=== PATIENT | male | born 1950 | race Caucasian/White ===

== ENCOUNTER → 2016-08-02 | Outpatient (CLI) | payer OTHER, MEDICARE ==
[~2016-08-02] MED LIST: ADULT LOW DOSE81 MG PO; ALDACTONE25 MG PO; ALLOPURINOL 30300 M2 PO; AMLODIPINE BESY10 MG PO; APAP500 PO; ASPIR 8181 MG PO; BENADRYL25 MG PO; BENICAR PO; BENICAR20 MG PO; BENICAR40 MG PO; CAL MAG ZINC +1 EAC1 PO; CALCIUM ZINC PO; CARVEDILOL12.5 MG PO; CARVEDILOL25 MG PO; CEPHALEXIN 500500 M3 PO; CLONIDINE PO; CLONIDINE0.1 PO; COLACE100 MG PO; COREG PO; CRESTOR10 MG PO; CRESTOR20 MG PO; DEEP SEA NASAL44 M1 NASAL; DEMADEX 2020 MG/1 TA PO; DEMADEX20 MG PO; DOCUSATE SODIU100 MG PO; DOXYCYCLINE 10100 M1 PO; EUCERIN CREME57 GM; FENOFIBRATE54 MG PO; FLOMAX PO; FLOMAX0.4 MG PO; GLUCOPHAGE500 MG PO; GLYCOLAX POWDER17 G1 PO; HUMALOG100 UNIT/1 SUBQ; HYDRALAZINE 2525 M1 PO; HYDRALAZINE 5050 MG PO; IMDUR 30 MG TAB30 M1 PO; K-DUR 20 MEQ T20 MEQ PO; LANTUS SUBQ; LASIX 40 MG TAB40 M1 PO; LASIX 80 MG TAB80 MG PO; LEVAQUIN 250 M250 MG PO; LEVAQUIN 500 M500 M1 PO; LEVAQUIN 500 M500 M6 PO; LEVEMIR SUBQ; LEVOFLOXACIN750 MG PO; LIPITOR40 MG PO; LISINOPRIL10 MG PO; LISINOPRIL20 MG PO; LISINOPRIL40 MG PO; METFORMIN 500500 MG PO; METOLAZONE 5 MG5 M1 PO; MICRO-K 10 MEQ10 MEQ OR; MINIPRIN81 MG PO; MIRALAX255 GM PO; MUCINEX TA600 MG/TA2 PO; MULTI-VITAMIN1 EAC1 PO; MULTIVITAMINS PO; NEURONTIN 300300 M1 PO; NORVASC 5 MG TAB5 MG PO; NOVOLOG100 UNIT/1 SUBQ; PRILOSEC 20 MG20 MG PO; PRINIVIL20 MG PO; PROTONIX40 M2 PO; ROCEPHIN 11 GM/100 M IV; SULAR PO; SYSTANE 0.3-0.1 EACH OP; SYSTANE BALANCE10 ML OPHTHALMIC; TAMSULOSIN HCL0.4 MG PO; UNICOMPLEX M TA1 TA1 PO; VITCB500GO PO; ZESTRIL5 MG PO; ZINC GLUCONATE100 MG PO
== END ==
LOC: HYPER 07:01
DX: E11.622 Type 2 diabetes mellitus with other skin ulcer (principal); L97.811 Non-pressure chronic ulcer of other part of right lower leg limited to breakdown of skin; L97.821 Non-pressure chronic ulcer of other part of left lower leg limited to breakdown of skin; R60.0 Localized edema; I50.40 Unspecified combined systolic (congestive) and diastolic (congestive) heart failure; L03.115 Cellulitis of right lower limb; L03.116 Cellulitis of left lower limb; E11.628 Type 2 diabetes mellitus with other skin complications; G47.30 Sleep apnea, unspecified

== ENCOUNTER 2016-09-21 04:05 | Inpatient (IN) | payer OTHER, MEDICARE ==
[~2016-09-21] VITALS: Ht 182.9 cm; Wt 145.5 kg
--- NOTE | ~2016-09-21 | HC ---
[facility] [place] [address] CONSULTATION Name: ABHIJIT CHOUDHURY Room #: 213-P ADM IN M.R.#: [id number] Admission: 09/21/16 Attend Phys: Theodore Ochoa MD Discharge: Date of : 48 Report #: [id number] THIS REPORT FOR: //name// CC: Ruiz Ochoa REASON FOR CONSULTATION: Shortness of breath. HISTORY OF PRESENT ILLNESS: The patient is a 66-year-old gentleman with remote bypass surgery and diastolic heart failure. He has a history of advanced kidney disease related to diabetic nephropathy. His weight had been stable at around 300 pounds, although over the past couple of weeks has noticed gradual weight gain and is now up to 312 pounds. With this, he has noticed increasing lower extremity edema, orthopnea and exertional breathlessness. He does admit that he has not been as good as he knows that he should be with regards to dietary salt intake. No chest pain, pressure or ischemic type symptoms. His left ventricular systolic function by assessment in 2014 was normal. No history of palpitations, near syncope or syncope. His volume status has been closely managed as an outpatient by Dr. Loza. He was seen in the Emergency Department where a B-type natriuretic peptide was elevated at 20,000. Troponin was elevated at 0.65. CURRENT MEDICATIONS: Include torsemide 40 mg daily, lisinopril 40 mg daily, carvedilol 12.5 mg twice daily, allopurinol 300 mg daily, insulin, atorvastatin 40 mg daily, Flomax 0.4 mg daily. ALLERGIES: He is allergic to SULFA AND TAPE. PAST MEDICAL HISTORY: Medical records have been reviewed and include history of stage 3-4 kidney disease, obstructive sleep apnea, diastolic heart failure, diabetic ulcers, bypass surgery in 2002, diabetic nephropathy, diabetic retinopathy. Bypass anatomy is known for a vein graft to the right coronary, vein graft to the second marginal branch with retrograde filling of the first marginal branch and occluded vein graft to the LAD and diagonal with a patent [place] LAD. SOCIAL HISTORY: Nonsmoker. FAMILY HISTORY: Unremarkable for premature coronary artery disease. 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 PHYSICAL EXAMINATION: GENERAL: Reveals a morbidly obese gentleman who is alert, who is mildly dyspneic. VITAL SIGNS: Blood pressure is 208/85, heart rate of 80 and regular. He is afebrile, 6 feet tall, 312 pounds. [facility] [address] [place] [address] CONSULTATION Name: ABHIJIT CHOUDHURY Room #: 213-P [facility] IN .R.#: [id number] Admission: 09/21/16 Attend Phys: Theodore Ochoa MD Discharge: Date of : 46 Report #: [id number] HEENT: There are neither xanthelasma, subcutaneous xanthomata, oral mucosal or digital cyanosis or kyphoscoliosis present. CHEST: Diminished breath sounds at both bases. CARDIOVASCULAR: Regular rate and rhythm with normal S1, S2. Jugular venous pressure is elevated. ABDOMEN: Soft, obese and nontender. EXTREMITIES: Wrapped. There is 1+ pedal edema. LABORATORY DATA: Sodium 139, potassium 3.5, creatinine 2.7. B-type natriuretic peptide of 20,000. White count 7.6, hemoglobin 9.9, hematocrit 30, platelet count 174. Chest x-ray demonstrates cardiomegaly and congestive heart failure. EKG has considerable baseline artifact. This looks like probably sinus rhythm with right bundle branch block. IMPRESSION: 1. Acute on chronic diastolic heart failure, advanced chronic kidney disease. 2. Hypertension. 3. Diabetes. 4. Coronary artery disease. 5. Obstructive sleep apnea. 6. Morbid obesity. RECOMMENDATIONS: 1. Nephrology consultation. 2. Continued use of carvedilol and OZZIE inhibitor. 3. Intravenous diuretic therapy. 4. Salt restriction was reinforced. 5. Echocardiogram with Doppler. Further thoughts will be forthcoming based on this evaluation. Thank you for asking me to participate in the care of this nice gentleman. <ELECTRONICALLY SIGNED> By: Ruiz Dominguez MD, FACC 09/23/16 1303 0727 0808 Ruiz Dominguez MD, FACC /nt
--- NOTE | ~2016-09-21 | EKG ---
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: JACOB : 1950 Requested By: Francine Swann Order Number: [id number] MD: Ruiz Dominguez Measurements Intervals [place] Rate: 79 P: MA: QRS: 78 QRSD: 181 T: 9 QT: 427 QTc: 490 Interpretive Statements Marked baseline artifact Probable sinus rhythm Right bundle branch block No previous ECG available for comparison Electronically Signed On 09-21-2016 8:37:18 CDT by Ruiz Dominguez [email or web address] <ELECTRONICALLY SIGNED> By: Ruiz Dominguez MD, [facility] 09/21/16 0837 0413 0413 Ruiz Dominguez MD, FACC /EPI
--- NOTE | ~2016-09-21 | H ---
[facility] [place] [address] HISTORY AND PHYSICAL Name: ABHIJIT CHOUDHURY Room #: 213-P ADM IN M.R.#: [id number] Admission: 09/21/16 Attend Phys: Theodore Ochoa MD Discharge: Date of : 46 Report #: [id number] THIS REPORT FOR: //name// CC: Ruiz Ochoa DATE OF SERVICE: 09/21/2016 CHIEF COMPLAINT: Swelling and weakness. HISTORY OF PRESENT ILLNESS: The patient is a 66-year-old male known to me who has chronic lymphedema and right-sided heart failure, who presented with increasing shortness of breath, swelling and weakness. He has been going to the wound clinic for lymphedema and wounds on his legs. He has been getting progressively worse in the last couple of weeks and could not get himself out of bed yesterday. PAST MEDICAL HISTORY: Includes diabetes mellitus, insulin requiring; retinopathy; nephropathy; cardiomyopathy; coronary artery disease with prior bypass grafting; diabetic foot ulcers; prior osteomyelitis; prior amputations of third to fifth toes on the right and frequent falls with dizziness, lightheadedness; Angel esophagitis; chronic kidney disease, stage 3-4; obstructive sleep apnea; diastolic heart failure; neuropathy. MEDICATIONS: Include torsemide 20 mg 2 a day, Systane drops daily, Levaquin 500 mg a day for the last week, lisinopril 20 mg a day, Coreg 25 mg b.i.d., allopurinol 300 mg a day, Benadryl 25 mg a day, insulin sliding scale. ALLERGIES: SULFA. SOCIAL HISTORY: Nonsmoker, nondrinker. He does live independently. REVIEW OF SYSTEMS: CONSTITUTIONAL: No fever or chills. HEENT: No headaches or visual changes. CHEST: Increased shortness of breath but no significant sputum production. No chest pain or palpitations. GASTROINTESTINAL: No vomiting or nausea, no diarrhea. GENITOURINARY: No burning or frequency. EXTREMITIES: No swelling. SKIN: No wounds as above. PHYSICAL EXAMINATION: VITAL SIGNS: Blood pressure 170/63, pulse is 84, respiratory rate is 18. GENERAL: He is afebrile. He is a morbidly obese male. He is very pleasant, in no acute distress. He has significant edema of his extremities. [address] [address] HISTORY AND PHYSICAL Name: ABHIJIT CHOUDHURY Room #: [address] [place] [address] IN M.R.#: [id number] Admission: 09/21/16 Attend Phys: Theodore Ochoa MD Discharge: Date of : 46 Report #: [id number] HEENT: His mucous membranes are moist. NECK: Supple, without adenopathy, thyromegaly or bruits. CHEST: Clear to auscultation anteriorly with basilar crackles bilaterally. CARDIOVASCULAR: Regular rhythm without murmur. ABDOMEN: Obese but soft, no masses. Bowel sounds are active. EXTREMITIES: 4+ edema. The legs are wrapped. Pulses are intact. LABORATORY DATA: Sodium 139, potassium 3.5, chloride 102, bicarbonate 24, BUN 81, creatinine 2.7, glucose 235. Troponin 0.65. BNP 20,286. WBC 7.6, hemoglobin 9.9, hematocrit 30.7, platelet count 174, 83 segs, 12 lymphs. Chest x-ray shows pulmonary edema, cardiomegaly. ASSESSMENT: 1. Acute exacerbation of systolic congestive heart failure and diastolic congestive heart failure. 2. Pulmonary edema. 3. Elevated troponin, most likely on the bases of the strain. 4. Chronic lymphedema. 5. Diabetes mellitus. 6. Prior osteomyelitis with wounds on his legs. 7. Benign prostatic hypertrophy. PLAN: We will admit, consult Cardiology, get IV diuresis. We will ask Urology to see him regarding the possible placement of catheter if needed. For his diabetes, we will resume his home meds including insulin sliding scale. By: 1730 1844 Theoodre Ochoa MD /nt
--- NOTE | ~2016-09-21 | 2DMMODE ---
[facility] [employer] [place] [address] 2 D/M-MODE ECHOCARDIOGRAM Name: MACEYABHIJIT BAUMANN Room #: 213-P [facility] IN M.R.#: [id number] Admission: 09/21/16 Attend Phys: Theodore Ochoa, Discharge: Date of : 46 Date of Service: 09/21/16 1253 Report #: [id number] THIS REPORT FOR: //name// APPROVED REPORT EXAM: Comprehensive 2D, Doppler, and color-flow Echocardiogram Patient Location: Bedside/Room 213 Blood Pressure: 208/85 mmHg HR: 73 bpm Other Information Study Quality: Poor Technically limited study due to body habitus. Indications CHF, leg swelling, short of breath. Hx: CABG, CHF, DM, morbid obesity. Echo Enhancing Agent Indication: Endocardial border delineation Agent/Amount Used: Definity cc 2D Dimensions RVDd: 44.17 mm LVEF(%): 52.58 (>50%) IVSd: 10.40 (7-11mm) LVOT Diam: 21.13 (18-24mm) LVDd: 56.89 mm PWd: 11.08 (7-11mm) LVDs: 41.31 (25-40mm) Aortic Root: 33.00 mm Holden's LVEF: 52.58 % Volumes Left Atrial Volume (Systole) Single Plane 4CH: 111.22 mL Single Plane 2CH: 93.52 mL LA ESV Index: 43.00 mL/m2 Aortic Valve AoV Peak Petr.: 1.50 m/s AO Peak Gr.: 9.04 mmHg LV Max P.72 mmHg LV Max: 0.82 m/s Mitral Valve [facility] [address] [place] [address] 2 D/M-MODE ECHOCARDIOGRAM Name: MACEYABHIJIT BAUMANN Room #: 213-P ADM IN M.R.#: [id number] Admission: 09/21/16 Attend Phys: Theodore Ochoa, Discharge: Date of : 46 Date of Service: 09/21/16 1253 Report #: [id number] MV PHT: 49.46 ms MV E Max Petr.: 1.23 m/s E/A Ratio: 2.1 MV A Petr.: 0.59 m/s MV Decel. Time: 170.55 ms TDI E/Lateral E': 33.00 E/Medial E': 26.00 Pulmonary Valve PV Peak Petr.: 0.90 m/s PV Peak Gr.: 3.22 mmHg Tricuspid Valve TR Peak Petr.: 4.09 m/s RAP Estimate: 15.00 mmHg TR Peak Gr.: 66.79 mmHg RVSP: 82.00 mmHg Left Ventricle Left ventricle is borderline dilated. Flattened septum consistent with right ventricular pressure overload. Hypokinesis involving the inferoapex. There is normal left ventricular wall thickness. Left ventricular systolic function is borderline. LVEF is 50-55%. Grade III - reversible restrictive diastolic dysfunction. Right Ventricle Right ventricle is not well visualized but appears dilated and hypokinetic. Atria Left atrium is dilated Right atrium is dilated Aortic Valve Aortic valve is calcified. No aortic regurgitation is present. There is no aortic valvular stenosis. Mitral Valve The mitral valve is normal in structure. Mild mitral regurgitation. There is no mitral valve stenosis. Tricuspid Valve The tricuspid valve is normal in structure. There is moderate tricuspid regurgitation. The right atrial pressure is estimated at 15 mmHg. There is severe pulmonary hypertension with an estimated PAP of 82mmHg. Pulmonic Valve The pulmonary valve is normal in structure. Trace pulmonic regurgitation. [facility] [address] [address] 2 D/M-MODE ECHOCARDIOGRAM Name: ABHIJIT CHOUDHURY PASTOR Room #: 213-P [facility] IN .R.#: [id number] Admission: 09/21/16 Attend Phys: Theodore Ochoa, Discharge: Date of : 46 Date of Service: 09/21/16 1253 Report #: [id number] Great Vessels The aortic root is normal in size. Ascending aorta is not well visualized. IVC is dilated and collapses <50% with inspiration. Pericardium There is no pericardial effusion. Right pleural effusion. <Conclusion> Limited study There is normal left ventricular wall thickness. Grade II diastolic dysfunction LVEF is 50-55%. Flattened septum consistent with right ventricular pressure overload. Hypokinesis involving the inferoapex. Aortic valve is calcified. No aortic regurgitation or stenosis. The mitral valve is normal in structure. Mild mitral regurgitation. There is moderate tricuspid regurgitation. The right atrial pressure is estimated at 15 mmHg. There is severe pulmonary hypertension with an estimated PAP of 80mmHg. There is no pericardial effusion. <ELECTRONICALLY SIGNED> By: Ruiz Dominguez MD, FACC 09/21/16 1253 1253 1253 Ruiz Dominguez MD, FACC /INF
--- NOTE | ~2016-09-21 | HC ---
[facility] [place] [address] CONSULTATION Name: ABHIJIT CHOUDHURY Room #: 213-P [facility] IN M.R.#: [id number] Admission: 09/21/16 Attend Phys: Theodore Ochoa MD Discharge: Date of : 48 Report #: [id number] THIS REPORT FOR: //name// CC: Ruiz Ochoa DATE OF SERVICE: 09/22/2016 PERSONAL PHYSICIAN: Theodore Ochoa MD CHIEF COMPLAINT: Lower extremity ulcerations and edema. HISTORY OF PRESENT ILLNESS: This is a 66-year-old white male who I saw in the wound clinic recently for lower extremity edema and ulcerations. However, at that time, the patient states he did not feel that he wanted to be hospitalized even though he said he had had approximately a 10-pound weight increase over the past several days. The patient did complain of shortness of breath with exertion, but denied any chest pain. The patient had no complaints of his wounds except for drainage. At this time, the patient now is hospitalized for heart failure and fluid overload. We have been asked to assist in wound care at this time. The patient states he has no new wounds since I saw him last week. PAST MEDICAL HISTORY: Significant for chronic kidney disease, obstructive sleep apnea, diastolic heart failure, chronic venous stasis ulcers, diabetic nephropathy, diabetic retinopathy and diabetic neuropathy, previous coronary artery bypass grafting. CURRENT MEDICATIONS: Include lisinopril, torsemide, insulin, atorvastatin, Flomax, allopurinol, and carvedilol. DRUG ALLERGIES: SULFA AND TAPE. SOCIAL HISTORY: The patient does not smoke or drink alcohol. Resides at home with his independently. FAMILY HISTORY: Not pertinent to current medical condition. REVIEW OF SYSTEMS: CONSTITUTIONAL: The patient denies fevers or chills. NEUROLOGIC: The patient has overall generalized weakness, but no isolated weakness in arms or legs. EYES: No complaints. ENT: No complaints. CARDIAC: The patient has a chronic lower extremity edema with increasing edema over the past several days. Denies chest pain or palpitations. RESPIRATORY: The patient does have shortness of breath with associated dyspnea [address] [address] CONSULTATION Name: MACEYABHIJIT PASTOR Room #: 213-P [facility] IN M.R.#: [id number] Admission: 09/21/16 Attend Phys: Theodore Ochoa MD Discharge: Date of : 46 Report #: [id number] on exertion and orthopnea. The patient denies cough or wheezes. GASTROINTESTINAL: The patient denies any nausea, vomiting or abdominal pain. GENITOURINARY: The patient denies urgency or frequency. MUSCULOSKELETAL: No complaints. SKIN: There are no rashes; however, the patient does have open ulcerations on bilateral pretibial regions as well as a necrotic left second toe. PHYSICAL EXAMINATION: VITAL SIGNS: Stable. T-max is 36.6. GENERAL: This is a morbidly obese white male who is in no acute distress. HEENT: Normocephalic, atraumatic. Mucous membranes are moist. Pupils are round. Sclerae white. NECK: Supple, without masses or lymphadenopathy. LUNGS: Slightly diminished breath sounds heard throughout with crackles in the base. HEART: Regular with a 2/6 systolic ejection murmur. ABDOMEN: Obese, soft, nontender. EXTREMITIES: The patient has 3+ edema in the lower extremities with weeping ulcerations on the pretibial regions, which are actually fairly clean and granulating, slightly improved from my last visualization last week. Periulcers are without significant erythema, warmth or tenderness. Distal pulses are faint, but intact on the dorsalis pedis, but faint or nonexistent on the posterior tibial region. On the left second toe, there is a necrotic wound which has small amount of foul-smelling drainage granulation tissue. NEUROLOGIC: Cranial nerves 2-12 are grossly intact. Motor and sensory are grossly intact. WOUND CARE COURSE: I spoke to the patient about his toe, which is my biggest concern. This was something that he sustained a traumatic injury to approximately 1 month ago where he nearly tore his toe off while he was in his wheelchair coming to the wound clinic. He had significant amount of bleeding in the toe itself. He did not have any x-rays performed; however, the toe itself was reduced what appeared to be a fracture or dislocation which we reduced in the wound clinic and paula-taped to the next toe and had silver alginate placed over that wound at that time. I spoke to the patient at his last clinic visit that this toe might need amputation. He prefers to hold off on it at this time unless it is absolutely necessary. I saw the rest the ulcerations seem to be stable or improving. LABORATORY DATA: White count 6.7, hemoglobin 9.3. BUN 84, creatinine 2.8, albumin on admission was 2.1. ASSESSMENT AND PLAN: 1. Chronic non-pressure ulcerations, bilateral pretibial area with limited to breakdown of fatty tissue. 2. Chronic lower extremity edema, worsening over the past several days [facility] [address] [place] [address] CONSULTATION Name: ABHIJIT CHOUDHURY Room #: 213-P ADM IN M.R.#: [id number] Admission: 09/21/16 Attend Phys: Theodore Ochoa MD Discharge: Date of : 46 Report #: [id number] secondary to #3. 3. Fluid overload consistent with congestive heart failure. 4. Severe protein-calorie malnutrition with an albumin of 2.1. 5. Necrotic wound, left second toe secondary to traumatic injury. 6. Diabetes mellitus type 2. 7. Morbid obesity. PLAN: At this time, we will use silver alginate on the left second toe to absorb any drainage, have this changed every day. We will do Silver foam to the pretibial ulcerations, have this changed once every other day, add Kerlix and Dylon wrap applied to the toes, to the knee for control of the edema. Once again, we will watch his second toe and make sure he does not need surgical intervention. Also make sure we maximize the patient's oral protein supplementation to assist in the healing process. I appreciate the ability to consult. We will continue to follow the patient. By: 1725 07 Romeo Aguilar MD /tracy
--- NOTE | ~2016-09-21 | HC ---
[facility] [place] [address] CONSULTATION Name: ABHIJIT CHOUDHURY Room #: 213-P ADM IN M.R.#: [id number] Admission: 09/21/16 Attend Phys: Theodore Ochoa MD Discharge: Date of : 46 Report #: [id number] THIS REPORT FOR: //name// CC: Ruiz Ochoa DATE OF SERVICE: 09/21/2016 REASON FOR CONSULTATION: Volume overload in this patient with diabetes mellitus, hypertension and chronic kidney disease. HISTORY OF PRESENT ILLNESS: The patient is well known to us from his previous hospitalizations at [facility]. He was last hospitalized in 03/2016 with renal insufficiency, cellulitis, respiratory insufficiency and congestive heart failure. His creatinine at that time was 2.5. The patient reports that he had maintained relatively good volume status through the first of the year. He was seen by Dr. Loza in our office in early July and was felt to be doing well at that time. The patient reports a 30-40-pound weight gain over the past several weeks. He has tried additional doses of torsemide to no avail. He presented to the Emergency Room early on the morning of admission with complaints of increasing swelling and shortness of breath. He was admitted for further evaluation and treatment. PAST MEDICAL HISTORY: Remarkable as described for diabetes mellitus, chronic kidney disease, ischemic cardiomyopathy with a documented ejection fraction of 45%. He is status post previous coronary artery bypass surgery in 2002. He has had ongoing issues with diabetic foot ulcers. He has undergone partial amputation of the right foot. He has known obstructive sleep apnea and uses CPAP regularly. He has a history of remote MRSA infection. He has known diabetic neuropathy. MEDICATIONS ON ADMISSION: Include torsemide 60 mg daily, vitamin C 500 mg daily, Systane eyedrops, Zestril 40 mg daily, Levaquin 500 mg daily, carvedilol 12.5 mg b.i.d., allopurinol 300 mg daily, Benadryl p.r.n., NovoLog and Humalog insulin. ALLERGIES: Reported to SULFA and TAPE. PERSONAL AND SOCIAL HISTORY: The patient lives with his . He does not smoke, use alcohol or have any history of substance abuse. REVIEW OF SYSTEMS: Remarkable as described in the history of present illness for increasing edema. He has had dyspnea with minimal exertion. He is not able to ambulate at this time. He denies chest pain, palpitations, nausea, vomiting, diarrhea or constipation. [facility] [address] [place] [address] CONSULTATION Name: ABHIJIT CHOUDHURY Room #: 213-P [facility] IN ..#: [id number] Admission: 09/21/16 Attend Phys: Theodore Ochoa MD Discharge: Date of : 46 Report #: [id number] PHYSICAL EXAMINATION: GENERAL: Reveals a morbidly obese male in no acute distress. VITAL SIGNS: Blood pressure 184/75, temperature 97.6, pulse 79, respirations 20. SKIN: Warm and dry. The legs are wrapped with an Dylon wrap below the knees bilaterally. There is significant thigh edema bilaterally. There is no evidence of cellulitis. HEENT: The head is normocephalic and atraumatic. The sclerae are white. The pharynx is benign. NECK: Supple. LUNGS: Montez reveal diminished breath sounds bilaterally without gross wheezes or crackles heard. CARDIOVASCULAR: Heart sounds are distant without gross murmur or rub. ABDOMEN: Markedly obese without guarding, tenderness, rebound, mass or organomegaly. NEUROLOGIC: Reveals evidence of peripheral neuropathy but is otherwise nonfocal. LABORATORY STUDIES: Available at this time include sodium 139, potassium 3.5, chloride 102, CO2 24, BUN 81, creatinine 2.7, glucose 235, white blood cell count 7600, hemoglobin 9.9, hematocrit 30.7, platelet count 174,000. Urinalysis is pending. ASSESSMENT: 1. Chronic kidney disease in the setting of longstanding diabetes mellitus and hypertension with creatinine a little changed from values from 03/2016. He needs ongoing parenteral diuresis at this time. 2. Shortness of breath and congestive heart failure with volume overload. 3. Hypertension. 4. Obstructive sleep apnea. 5. Morbid obesity. 6. Anemia of chronic kidney disease. PLAN: We will treat the patient with parenteral diuretic therapy and appropriate potassium supplementation in an effort to remove the 30 plus pounds of excess fluid he is now retaining at this time. Dietary management will be important going forward as has been discussed with the patient in the past. Please see orders. <ELECTRONICALLY SIGNED> By: Glen Bell MD 09/22/16 0832 1257 1404 Glen Bell MD /nt
--- NOTE | ~2016-09-21 | HC ---
[facility] [place] [address] CONSULTATION Name: ABHIJIT CHOUDHURY Room #: 213-P [facility] IN M.R.#: [id number] Admission: 09/21/16 Attend Phys: Theodore Ochoa MD Discharge: Date of : 48 Report #: [id number] THIS REPORT FOR: //name// CC: Ruiz Ochoa DATE OF SERVICE: 09/22/2016 REASON FOR CONSULTATION: Chronic kidney disease in the setting of diffuse atherosclerosis in anticipation of cardiac catheterization. HISTORY OF PRESENT ILLNESS: The patient has longstanding and severe atherosclerosis. He is status post remote CABG in 2003. He has undergone subsequent PCI with stent placement in 2013. He has known abdominal aortic aneurysm status post stent graft with bilateral renal artery stents. He has undergone previous right carotid endarterectomy. He has a history of nephrolithiasis. He has known peripheral arterial disease. The patient is admitted at this time with complaints of chest pain and has been treated with nitroglycerin and aspirin. His troponin was elevated to 1.11 on admission. The patient denies recent gross hematuria or difficulties with nephrolithiasis. MEDICATIONS: On admission to the hospital include losartan 100 mg daily, carvedilol 12.5 mg b.i.d., nitroglycerin p.r.n., amlodipine 10 mg daily, Lipitor 40 mg daily, Plavix 75 mg daily, clonidine 0.1 mg t.i.d., Flonase 2 sprays daily, aspirin 81 mg daily, vitamin D 1000 units daily. ALLERGIES: He has no known drug allergies. PERSONAL AND SOCIAL HISTORY: The patient is a reformed smoker having quit many years ago. He did smoke for 35 years, however. He does not use alcohol or have any history of substance abuse. He is and lives with his . He is retired. FAMILY HISTORY: Negative for renal disease. REVIEW OF SYSTEMS: Remarkable for the absence of fevers, chills, sweats or other constitutional complaints. He denies loss of consciousness or vertigo. He has had minimal shortness of breath and dyspnea with exertion. He had chest pain as described. He denies hemoptysis. He denies nausea, vomiting, diarrhea or constipation. PHYSICAL EXAMINATION: GENERAL: Reveals a well-developed, well-nourished, elderly male appearing his [facility] [address] [place] [address] CONSULTATION Name: ABHIJIT CHOUDHURY Room #: 213-P [facility] IN M.R.#: [id number] Admission: 09/21/16 Attend Phys: Theodore Ochoa MD Discharge: Date of : 48 Report #: [id number] stated age, in no acute distress. VITAL SIGNS: Blood pressure 130/64, temperature 98.1, pulse 73. SKIN: Warm and dry without rash or erythema. There is no gross clubbing, cyanosis, edema or adenopathy. HEENT: The head is normocephalic and atraumatic. The sclerae are white. The pharynx is benign. NECK: Supple. CHEST: Lungs huerta are grossly clear to percussion and auscultation. CARDIOVASCULAR: Reveals a regular rate and rhythm without rub. There is good distal perfusion. ABDOMEN: Soft and nontender without palpable mass or organomegaly. There is no mass appreciated. NEUROLOGIC: Reveals the patient to be alert and cooperative with a nonfocal exam. LABORATORY STUDIES: Available at the time of admission include sodium 140, potassium 3.8, chloride 107, CO2 26, BUN 22, creatinine 1.4, glucose 100, albumin 3.4. White blood cell count 7600, hemoglobin 13.1, hematocrit 39.3, platelet count 129,000. Urinalysis reveals clear yellow urine, specific gravity 1.015, pH 5.5, negative for glucose, ketones, bilirubin, 1+ blood. ASSESSMENT: 1. Chronic kidney disease in the setting of longstanding hypertension and severe atherosclerosis. I suspect the patient has an element of hypertensive nephrosclerosis/ischemic nephropathy. Urinalysis does not suggest a glomerulonephritis or other parenchymal renal process. He has high risk for radiocontrast and should be prepped with IV hydration prior to cardiac catheterization. 2. Acute chest pain with acute coronary insufficiency for catheterization and evaluation. The patient has a known history of coronary artery disease status post previous coronary artery bypass surgery as well as subsequent percutaneous intervention. 3. Diffuse atherosclerosis with history of renal artery stents, abdominal aortic stent graft and distal peripheral arterial disease. 4. Longstanding severe hypertension. PLAN: We will administer hydration protocol for the patient prior to radiocontrast administration. We will follow serial laboratory studies, I and O and daily weights. We will endeavor to avoid other nephrotoxins as possible. Please see orders. <ELECTRONICALLY SIGNED> By: Glen Bell MD 09/25/16 0826 1249 1552 Glen Bell MD /nt
[~2016-09-21 04:05] MED LIST changes: -CARVEDILOL12.5 MG PO; -FLOMAX0.4 MG PO; -HUMALOG100 UNIT/1 SUBQ; -LEVAQUIN 500 M500 M6 PO; -SYSTANE 0.3-0.1 EACH OP; -UNICOMPLEX M TA1 TA1 PO
[2016-09-21 04:06] VITALS: BP 172/63
[2016-09-21] MEDS ORDERED: DEMADEX20 MG PO (04:17)
[2016-09-21] MEDS ORDERED: SYSTANE 0.3-0.1 EACH OP (04:18)
[2016-09-21] MEDS ORDERED: LISINOPRIL20 MG PO (04:19)
[2016-09-21] MEDS ORDERED: CARVEDILOL12.5 MG PO (04:20)
[2016-09-21] MEDS ORDERED: LEVAQUIN 500 M500 M6 PO (04:20)
[2016-09-21] MEDS ORDERED: ALLOPURINOL 30300 M2 PO (04:20)
[2016-09-21] MEDS ORDERED: HUMALOG100 UNIT/1 SUBQ (04:21)
[2016-09-21] MEDS ORDERED: BENADRYL25 MG PO (04:21)
[2016-09-21] MEDS ORDERED: NOVOLOG100 UNIT/1 SUBQ (04:21)
[2016-09-21 04:35] LABS: HEMATOCRIT 30.7 % (42.0-52.0); HEMOGLOBIN 9.9 gm/dL (14.0-18.0); MANUAL DIFF YES; MCH 26.8 pg (26.0-34.0); MCHC 32.2 g/dL (28.0-37.0); MCV 83.3 fL (80.0-100.0); PLATELET COUNT 174 thou/uL (150-400); RBC 3.69 mil/uL (4.50-6.00); RDW 16.2 % (10.5-14.5); WBC 7.6 thou/uL (4.0-11.0)
[2016-09-21 04:42] LABS: CALCIUM 8.3 mg/dL (8.5-10.1); CREATININE 2.7 mg/dL (0.6-1.3); POTASSIUM 3.5 mmol/L (3.5-5.1)
[2016-09-21 04:45] LABS: TROPONIN-I 0.65 ng/mL (<0.04-0.07)
[2016-09-21 05:08] LABS: ABSOLUTE NEUTROPHILS 6.3 thou/uL (1.4-8.2); ANISOCYTOSIS 1+; POLYCHROMASIA SLIGHT; TOTAL CELL COUNT 100
[2016-09-21 07:09] VITALS: BP 208/85
[2016-09-21] MEDS ORDERED: FLOMAX0.4 MG PO (10:10)
[2016-09-21] MEDS ORDERED: UNICOMPLEX M TA1 TA1 PO (10:11)
[2016-09-21 14:40] VITALS: BP 187/73
[2016-09-21 16:43] LABS: URINE BILIRUBIN NEGATIVE (Negative); URINE BLOOD 3+ (Negative); URINE COLOR YELLOW; URINE GLUCOSE-RANDOM* NEGATIVE (Negative); URINE KETONES NEGATIVE (Negative); URINE NITRITE NEGATIVE (Negative); URINE PROTEIN (DIPSTICK) 1+ (Negative); URINE UROBILINOGEN 0.2 E.U./dl (0.2-1.0)
[2016-09-21 16:53] LABS: CASTS None Seen /LPF (None Seen); SQUAMOUS 0-3 Few /LPF (0-3); URINE WBC 0-5 Rare /HPF (0-5)
[2016-09-21 16:54] LABS: AMORPHOUS URATES Moderate /LPF (None Seen)
[2016-09-21 19:15] VITALS: BP 176/75
[2016-09-21 23:43] VITALS: BP 184/74
[2016-09-22 00:10] LABS: URINE CREATININE-RANDOM* 21.4 mg/dL (Not Estab.); URINE PROTEIN-RANDOM* 51.7 mg/dL (Not Estab.)
[2016-09-22 03:41] LABS: HEMATOCRIT 29.1 % (42.0-52.0); HEMOGLOBIN 9.3 gm/dL (14.0-18.0); MCH 26.7 pg (26.0-34.0); MCHC 31.9 g/dL (28.0-37.0); MCV 83.8 fL (80.0-100.0); RBC 3.47 mil/uL (4.50-6.00); RDW 16.2 % (10.5-14.5); WBC 6.7 thou/uL (4.0-11.0)
[2016-09-22 03:51] VITALS: BP 171/71
[2016-09-22 03:58] LABS: ALBUMIN 2.1 g/dL (3.4-5.0); CALCIUM 7.9 mg/dL (8.5-10.1); CREATININE 2.8 mg/dL (0.6-1.3); PHOSPHORUS 4.8 mg/dL (2.5-4.9); POTASSIUM 3.8 mmol/L (3.5-5.1)
[2016-09-22 12:31] VITALS: BP 176/80
[2016-09-22 19:15] VITALS: BP 176/70
[2016-09-23 03:10] LABS: HEMATOCRIT 29.1 % (42.0-52.0); HEMOGLOBIN 9.2 gm/dL (14.0-18.0); MCH 26.7 pg (26.0-34.0); MCHC 31.8 g/dL (28.0-37.0); RBC 3.46 mil/uL (4.50-6.00); RDW 16.3 % (10.5-14.5); WBC 7.1 thou/uL (4.0-11.0)
[2016-09-23 03:23] LABS: ALBUMIN 2.1 g/dL (3.4-5.0); CALCIUM 7.7 mg/dL (8.5-10.1); CREATININE 2.9 mg/dL (0.6-1.3); MAGNESIUM 1.4 mg/dL (1.8-2.4); PHOSPHORUS 4.5 mg/dL (2.5-4.9); POTASSIUM 4.2 mmol/L (3.5-5.1)
[2016-09-23 03:41] VITALS: BP 173/75
[2016-09-23 11:00] VITALS: BP 183/73
[2016-09-23 11:15] VITALS: BP 178/73
[2016-09-23 15:23] VITALS: BP 146/52
[2016-09-23 19:32] VITALS: BP 146/75
[2016-09-24 03:42] VITALS: BP 147/60
[2016-09-24 03:48] LABS: CALCIUM 7.8 mg/dL (8.5-10.1); POTASSIUM 4.2 mmol/L (3.5-5.1)
[2016-09-24 07:30] VITALS: BP 168/69
[2016-09-24 11:20] VITALS: BP 187/79
[2016-09-24 16:30] VITALS: BP 147/99
[2016-09-24 19:50] VITALS: BP 143/66
[2016-09-25 04:14] LABS: HEMATOCRIT 28.6 % (42.0-52.0); HEMOGLOBIN 9.4 gm/dL (14.0-18.0); MCHC 32.8 g/dL (28.0-37.0); MCV 82.6 fL (80.0-100.0); RBC 3.47 mil/uL (4.50-6.00); RDW 16.3 % (10.5-14.5); WBC 8.8 thou/uL (4.0-11.0)
[2016-09-25 04:19] VITALS: BP 170/73
[2016-09-25 04:28] LABS: MAGNESIUM 1.5 mg/dL (1.8-2.4); POTASSIUM 4.3 mmol/L (3.5-5.1); TOTAL BILIRUBIN 0.4 mg/dL (<0.1-1.0); TOTAL PROTEIN 5.4 g/dL (6.4-8.2)
[2016-09-25 07:20] VITALS: BP 152/72
[2016-09-25] MEDS ORDERED: CEFDINIR300 MG PO (09:29)
[2016-09-25] MEDS ORDERED: AMLODIPINE BESYL5 M1 PO (09:30)
[2016-09-25] MEDS ORDERED: ASPIR 8181 MG PO (09:30)
[2016-09-25] MEDS ORDERED: K-DUR 20 MEQ T20 MEQ PO (09:30)
[2016-09-25] MEDS ORDERED: MAGNESIUM OXID400 MG PO (09:31)
[2016-09-25] MEDS ORDERED: COLACE 100 MG100 MG PO (09:31)
[2016-09-25] MEDS ORDERED: NYAMYC15 GM TOP (09:31)
[2016-09-25] MEDS ORDERED: ALLOPURINOL 10100 M1 PO (09:32)
[2016-09-25 12:00] VITALS: BP 143/56
== END 2016-09-25 14:55 | DRG 291 ==
LOC: ER 04:05 → EROBS 05:05 → 2N 05:05
PROVIDERS: Emergency Medicine; Family Medicine; Internal Medicine; Internal Medicine Nephrology
DX: I50.43 Acute on chronic combined systolic (congestive) and diastolic (congestive) heart failure (principal); J18.9 Pneumonia, unspecified organism; E43 Unspecified severe protein-calorie malnutrition; N17.9 Acute kidney failure, unspecified; J44.1 Chronic obstructive pulmonary disease with (acute) exacerbation; I24.8 Other forms of acute ischemic heart disease; L03.119 Cellulitis of unspecified part of limb; I13.0 Hypertensive heart and chronic kidney disease with heart failure and stage 1 through stage 4 chronic kidney disease, or unspecified chronic kidney disease; Z68.41 Body mass index [BMI] 40.0-44.9, adult; N18.4 Chronic kidney disease, stage 4 (severe); G47.33 Obstructive sleep apnea (adult) (pediatric); E66.01 Morbid (severe) obesity due to excess calories; I25.5 Ischemic cardiomyopathy; D63.8 Anemia in other chronic diseases classified elsewhere; R09.02 Hypoxemia; E83.42 Hypomagnesemia; E11.621 Type 2 diabetes mellitus with foot ulcer; L89.629 Pressure ulcer of left heel, unspecified stage; E11.40 Type 2 diabetes mellitus with diabetic neuropathy, unspecified; E11.319 Type 2 diabetes mellitus with unspecified diabetic retinopathy without macular edema; L98.499 Non-pressure chronic ulcer of skin of other sites with unspecified severity; E87.70 Fluid overload, unspecified; I25.10 Atherosclerotic heart disease of native coronary artery without angina pectoris; I89.0 Lymphedema, not elsewhere classified; E78.5 Hyperlipidemia, unspecified; N40.0 Benign prostatic hyperplasia without lower urinary tract symptoms; E11.51 Type 2 diabetes mellitus with diabetic peripheral angiopathy without gangrene; E11.22 Type 2 diabetes mellitus with diabetic chronic kidney disease; Z90.49 Acquired absence of other specified parts of digestive tract; Z95.1 Presence of aortocoronary bypass graft; Z79.4 Long term (current) use of insulin; Z98.42 Cataract extraction status, left eye; Z98.41 Cataract extraction status, right eye; Z88.2 Allergy status to sulfonamides; Z82.49 Family history of ischemic heart disease and other diseases of the circulatory system; Z89.431 Acquired absence of right foot; Z79.82 Long term (current) use of aspirin; Z79.899 Other long term (current) drug therapy
CPT/HCPCS: 10081

== ENCOUNTER 2016-09-25 22:44 | Emergency (ER) | payer OTHER, MEDICARE ==
[~2016-09-25] VITALS: Ht 182.9 cm; Wt 142.9 kg
[~2016-09-25 22:44] MED LIST changes: +ALLOPURINOL 10100 M1 PO; +AMLODIPINE BESYL5 M1 PO; +CARVEDILOL12.5 MG PO; +CEFDINIR300 MG PO; +COLACE 100 MG100 MG PO; +FLOMAX0.4 MG PO; +HUMALOG100 UNIT/1 SUBQ; +LEVAQUIN 500 M500 M6 PO; +MAGNESIUM OXID400 MG PO; +NYAMYC15 GM TOP; +SYSTANE 0.3-0.1 EACH OP; +UNICOMPLEX M TA1 TA1 PO
[2016-09-26 00:38] LABS: URINE BILIRUBIN NEGATIVE (Negative); URINE BLOOD 3+ (Negative); URINE COLOR YELLOW; URINE GLUCOSE-RANDOM* NEGATIVE (Negative); URINE KETONES NEGATIVE (Negative); URINE LEUKOCYTES-REFLEX NEGATIVE (Negative); URINE PROTEIN (DIPSTICK) 2+ (Negative); URINE SPECIFIC GRAVITY 1.015 (1.003-1.035); URINE UROBILINOGEN 0.2 E.U./dl (0.2-1.0)
[2016-09-26 00:42] LABS: SQUAMOUS None Seen /LPF (0-3)
[2016-09-26 00:43] LABS: AMORPHOUS URATES Few /LPF (None Seen); CASTS None Seen /LPF (None Seen); CRYSTALS None Seen /LPF (None Seen); URINE RBC >20 Many /HPF (0-2); URINE WBC-REFLEX None Seen /HPF (0-5)
== END 2016-09-26 02:00 ==
LOC: ER 22:44
PROVIDERS: Emergency Medicine
DX: R31.29 Other microscopic hematuria (principal); E10.21 Type 1 diabetes mellitus with diabetic nephropathy; E10.319 Type 1 diabetes mellitus with unspecified diabetic retinopathy without macular edema; E10.621 Type 1 diabetes mellitus with foot ulcer; L97.509 Non-pressure chronic ulcer of other part of unspecified foot with unspecified severity; I25.10 Atherosclerotic heart disease of native coronary artery without angina pectoris; G47.33 Obstructive sleep apnea (adult) (pediatric); E10.40 Type 1 diabetes mellitus with diabetic neuropathy, unspecified; I50.30 Unspecified diastolic (congestive) heart failure; E10.22 Type 1 diabetes mellitus with diabetic chronic kidney disease; N18.3 Chronic kidney disease, stage 3 (moderate); Z88.2 Allergy status to sulfonamides; Z90.49 Acquired absence of other specified parts of digestive tract; Z88.8 Allergy status to other drugs, medicaments and biological substances

== ENCOUNTER 2016-10-01 13:15 | Inpatient (IN) | payer OTHER, MEDICARE ==
[~2016-10-01] VITALS: Ht 182.9 cm; Wt 141.3 kg
--- NOTE | ~2016-10-01 | HC ---
[facility] [place] [address] CONSULTATION Name: ABHIJIT CHOUDHURY Room #: 245-P [facility] IN M.R.#: [id number] Admission: 10/01/16 Attend Phys: Scott Beckford DO Discharge: Date of : 48 Report #: [id number] THIS REPORT FOR: //name// CC: Scott Kirkpatrickzion Ochoa DATE OF SERVICE: 10/07/2016 I was called to room 441 on manager sign hours of 10/07/2016 for code blue. Upon arrival, the patient was being coded and there were active compressions being performed. He had just received a dose of epinephrine per protocols. I asked for a brief assessment and I was informed that the patient was sitting up in bed and went unresponsive. He was hooked up to the monitor, was apneic and no pulse was felt. CPR was then started. Upon my arrival, he continues to be unresponsive and is being assisted through bag valve mask with his respirations. He then very suddenly became responsive and reaches out and touches one of the nearby nurses. He is still obtunded and pulse is clearly felt. He has a sinus, tachycardic rhythm on the monitor. He is still not keenly awake and alert and is not protecting his airway at this point. He is intubated for airway protection by myself. I used a MAC 4 blade, 8.0 endotracheal tube, and he was sedated with 40 mg of etomidate. No paralytic was used. After completion of the intubation, the tube was secured by respiratory therapy at 24 cm at the teeth. There was good color change on colorimetric CO2 testing as well as equal breath sounds bilaterally. An EKG was obtained which showed a sinus rhythm, rate of 76, right bundle branch block, which did appear to be similar in morphology to his previous EKG from a few days ago. There is no evidence of ST elevation or depression at this time. At this point, my involvement in the patient's care was ceased. <ELECTRONICALLY SIGNED> By: Colt Gomez DO 10/07/162120 57 Colt Gomez DO /nt
--- NOTE | ~2016-10-01 | HC ---
[facility] [place] [address] CONSULTATION Name: ABHIJIT CHOUDHURY Room #: 410-P [facility] IN M.R.#: [id number] Admission: 10/01/16 Attend Phys: Scott Beckford DO Discharge: Date of : 48 Report #: [id number] THIS REPORT FOR: //name// CC: Scott Kirkpatrickzion Ochoa DATE OF SERVICE: 10/02/2016 HISTORY OF PRESENT ILLNESS: This obese 66-year-old gentleman presents with multiple medical and metabolic problems, primarily with acute anemia and fatigue. He has a history of severe peripheral vascular disease, congestive heart failure, generalized edema, chronic renal failure and diabetes. He has multiple areas of soft tissue breakdown in both lower extremities. The most severe involved the left second toe, which is clearly gangrenous. The right foot has had previous amputations of the lateral 3 digits, and those have apparently healed up satisfactorily. He does have multiple areas of superficial skin breakdown, which are being managed by Dr. Aguilar from wound care. He has some sloughing of callus and superficial skin over the left heel. He has multiple areas of superficial abrasion and skin breakdown in the left calf and less so on the right side. PHYSICAL EXAMINATION: Objectively, he states he is not having much discomfort, and the wounds are all appropriately dressed. The left foot shows a dry gangrene of second toe extending down to the base. The surrounding area is somewhat firm and fibrotic, but does not seem to be involved with either abscess nor significant cellulitis. The third, fourth and fifth toes are a bit bluish and clearly have poor vascularity, but they still seem viable. The great toe seems to be in better shape. There are no other skin lesions around the mid foot, but there is significant problem at the heel, although this is superficial involving sloughing of a large callus with what seems to be satisfactory tissues beneath that. ASSESSMENT AND PLAN: I have had a lengthy discussion with the patient and with Dr. Ochoa. I think this gentleman is at significant risk for ongoing wound healing problems. It is certainly not clear that an amputation of the left second toe will result in soft tissue healing, given the problems with local vascular supply. I doubt that he would do much better with a mid foot amputation. Eventually, I suspect this may end up with a below-knee amputation. Today, however, we have all agreed that it would be appropriate to try to salvage the foot for as long as possible and simply proceed with amputation of the clearly necrotic second toe. I think this could be best accomplished at the base of the digit across the MP joint with a gentle soft tissue closure at that level. He will clearly need significant ongoing wound care. I think we will need to [address] [address] CONSULTATION Name: MACEYABHIJIT PASTOR Room #: 410-P [facility] IN M.R.#: [id number] Admission: 10/01/16 Attend Phys: Scott Beckford DO Discharge: Date of : 48 Report #: [id number] make sure he is cleared and stable from a general metabolic point of view, and I believe is being seen by cardiology and nephrology and wound care. Pending their comments, we may be able to proceed with tentative scheduling for amputation of the left second toe on 10/04/2016. <ELECTRONICALLY SIGNED> By: Gregor Dye MD 10/03/16 1050 0829 1204 Gregor Dye MD /nt
--- NOTE | ~2016-10-01 | EKG ---
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
--- NOTE | ~2016-10-01 | HC ---
[facility] [place] [address] CONSULTATION Name: ABHIJIT CHOUDHURY Room #: 410-P [facility] IN M.R.#: [id number] Admission: 10/01/16 Attend Phys: Scott Beckford DO Discharge: Date of : 48 Report #: [id number] THIS REPORT FOR: //name// CC: Scott Jaimes Ochoa DATE OF SERVICE: 10/02/2016 REASON FOR CONSULTATION: Chronic kidney disease and related problems. HISTORY OF PRESENT ILLNESS: This is a 66-year-old male who I have known for years. He has the ravages of longstanding diabetes mellitus. He is in at this time because of an ischemic left second toe. He has chronic edema and prior diabetic foot infections. He has also developed some wounds on his pretibial areas with breakdown of skin related to his extensive edema. From a kidney standpoint, the patient has chronic kidney disease. This is stage IV. He runs a baseline creatinine level in the 2-3 range. It has been variable over the years. It has also been progressive. Again, I started seeing him in the office many years ago, and at that time, he was running creatinine levels in the low 1 range, but he has shown progression of his diabetic kidney disease since that time. Most recently, he was in the hospital last week and upon discharge, his creatinine level was 3.0. Upon admission yesterday, it was 3.6 and today it is 3.4. In addition, he has some hyperkalemia. Potassium was 5.5 yesterday and 5.8 today. It was slightly low when he last came in, so he was put on some oral potassium, and he has still been getting that. It was held today. He is chronically on lisinopril 40 mg daily, and he has continued to get that dose. He has also been chronically on oral loop diuretics. In talking to the patient, he expresses some concern over his toe. He denies dyspnea or cough. No nausea or vomiting. He says his bowels have not moved much. No difficulty voiding urine. Apparently, he did have a recent urinary catheter in place though, ____ some gross hematuria. After it was removed, he was passing a few clots. He does not express symptoms of urinary obstruction. The nurse is in the room and I have talked to her, and they have not yet scanned his bladder, but they are going to do it in the next very short while. The patient has had longstanding proteinuria along with his diabetic nephropathy. At times it has been in the nephrotic range. He has had great difficulty controlling his lower extremity edema. Part of that is due to dietary indiscretions as he tries but is not always successful in avoiding high salt loads. PAST MEDICAL HISTORY: Longstanding diabetes as noted above, it is type 2. He has also had hypertension. He had coronary artery bypass graft surgery in 2002, has had peripheral vascular disease. Multiple toes have been removed from the right foot already. He is obviously facing some of the same in the left foot. [address] [address] CONSULTATION Name: ABHIJIT CHOUDHURY Room #: 410-P [facility] IN M.R.#: [id number] Admission: 10/01/16 Attend Phys: Scott Beckford DO Discharge: Date of : 48 Report #: [id number] MEDICATIONS: On admission include allopurinol 100 mg daily, amlodipine 5 mg daily, aspirin 81 mg daily, carvedilol 12.5 mg b.i.d., Omnicef 300 mg b.i.d., docusate daily, NovoLog insulin, long-acting insulin, lisinopril 40 mg daily, magnesium oxide 400 mg b.i.d., multivitamin daily, potassium 20 mEq b.i.d. and torsemide 40 mg daily. ALLERGIES: SULFA. FAMILY HISTORY: Noncontributory. SOCIAL HISTORY: The patient is , lives in [place], [place]. He is retired. He has had obviously many physical difficulties over recent years. REVIEW OF SYSTEMS: Denies dyspnea, cough or chest pain. Denies nausea or vomiting. He has some mild constipation, had the hematuria as noted above. States currently that he is not having difficulty passing urine, although we have not yet done a bladder scan. He has chronic lower extremity edema and has significant peripheral neuropathy. He is unaware of current fevers, chills or sweats. PHYSICAL EXAMINATION: GENERAL: Chronically ill-appearing male. He is awake and responsive at this time. He recognizes me readily when I walk in the room. VITAL SIGNS: Blood pressure 163/77, heart rate 70, temperature 98.4 degrees Fahrenheit and oxygen saturation 96%. HEENT: Shows pupils are equal and reactive. Sclerae nonicteric. Oral mucosa is moist. NECK: Neck veins are not distended. Neck is supple, no adenopathy. CHEST: Fairly clear bilaterally. CARDIOVASCULAR: Heart has a regular rate and rhythm. ABDOMEN: Has bowel sounds present. It is soft, currently nontender. EXTREMITIES: Show 2+ bilateral lower extremity edema. Both pretibial areas are wrapped down to the feet. Left foot toes are exposed and the second toe is mummified with dry eschar. The third and fourth toes are also significantly compromised. LABORATORY DATA: From today, sodium 134, potassium 5.8, chloride 99, bicarbonate 26, BUN 101, creatinine 3.4, glucose 204, calcium 8.2, total protein 5.3 and albumin 2.1. White count 8.5, hemoglobin 8.9, hematocrit 27.2 and that is after getting 2 units of packed red blood cells because he was 6.8 on his hemoglobin yesterday. Platelets 223,000. Differential yesterday on the white count was 79 neutrophils, 11 lymphs, 6 monocytes and 4 eosinophils. ASSESSMENT: 1. Chronic kidney disease stage 4. Creatinine is slightly higher than his baseline, but he has been generally trending worse over the past several years. [facility] [address] [place] [address] CONSULTATION Name: ABHIJIT CHOUDHURY Room #: 410-P [facility] IN M.R.#: [id number] Admission: 10/01/16 Attend Phys: Scott Beckford DO Discharge: Date of : 48 Report #: [id number] We want to keep him on the lisinopril, but because his potassium level is up, we will hold it for a day or so. His blood pressure is adequate. I expect he will show some mild improvement in his creatinine closer to his recent baseline. He is not uremic at this time. He is not dramatically acidotic. 2. Hyperkalemia. He already got his lisinopril today. I will hold his lisinopril tomorrow. He is going to get insulin for his hyperglycemia. He will also need some Kayexalate, so we will order that. 3. Ischemic left second toe will eventually need amputation, might need other toes amputated by that time. 4. Chronic lower extremity edema. I will keep him on the high dose of torsemide. 5. Longstanding type 2 diabetes with extensive peripheral neuropathy. 6. Hypertension, moderate control at this time. PLAN: 1. Hold lisinopril. 2. He is already off his potassium. He will not need it for a while. 3. Oral Kayexalate to help bring his potassium down a little bit more. 4. We will check a bladder scan to make sure he is not obstructed with the recent clots he has been passing. 5. Continue care of his wounds. 6. We will follow along in the care of this patient. <ELECTRONICALLY SIGNED> By: Braxton Loza MD 10/03/16 0827 1148 1733 Braxton Loza MD /nt
--- NOTE | ~2016-10-01 | EKG ---
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1950 Requested By: Theodore Ochoa Order Number: [id number] MD: Ruiz Dominguez Measurements Intervals [place] Rate: 78 P: 12 NM: 243 QRS: 76 QRSD: 175 T: 46 QT: 454 QTc: 518 Interpretive Statements Sinus rhythm Prolonged NM interval Right bundle branch block Compared to ECG 10/08/2016 06:34:30 No significant change was found Electronically Signed On 10-11-2016 8:31:03 CDT by Ruiz Dominguez [email or web address] <ELECTRONICALLY SIGNED> By: Ruiz Dominguez MD, [facility] 10/11/16 0831 1444 144 Ruiz Dominguez MD, [facility] /EPI
--- NOTE | ~2016-10-01 | O ---
[facility] [place] [address] OPERATIVE REPORT Name: ABHIJIT CHOUDHURY Room #: 410-P ADM IN M.R.#: [id number] Admission: 10/01/16 Attend Phys: Scott Beckford DO Discharge: Date of : 48 Report #: [id number] THIS REPORT FOR: //name// CC: Scott Kirkpatrickzion Ochoa DATE OF SERVICE: 10/04/2016 PREOPERATIVE DIAGNOSIS: Necrotic gangrenous left second toe. POSTOPERATIVE DIAGNOSIS: Necrotic gangrenous left second toe. PROCEDURE: Amputation, left second toe. SURGEON: Gregor Dye MD INDICATIONS: This obese 66-year-old gentleman with severe metabolic problems including obesity, COPD, and diabetes with severe peripheral vascular disease, has multiple lower extremity problems and chronic progressive ischemic issues in the left foot. He has obviously necrotic second toe. There is extensive superficial wound at the heel and some less significant problems over the dorsum of the foot and in the mid leg. The great toe and the remaining lesser toes appear to be slightly dusky, but are viable at this point. I have discussed at some great length with the patient and his that he has severe peripheral vascular disease and I am uncertain if the limb is salvageable at this point, they would like to try to be as conservative as possible, we have elected to go ahead with amputation of the second digit and we will allow wound management to continue with ongoing care for the rest of the problems. DESCRIPTION OF PROCEDURE: The patient was taken to the operating room where he was placed under very brief sedation. He has limited sensation in the foot, did not require intubation nor more aggressive anesthetic agents. I elected not to use a local anesthetic to avoid any vascular spasm or other local problems. The foot was thoroughly prepped and draped. The second toe is necrotic down near its base. A racket shaped skin incision was made and this was carried sharply down to bone and then a subperiosteal dissection carried down to the base of the proximal phalanx. The toe was amputated at the metatarsophalangeal level. The surrounding tissues demonstrated some bleeding. No tourniquet was utilized. The area was copiously irrigated. There was no evidence of purulence or abscess. The metatarsal head appeared to be intact without evidence of destruction or osteomyelitis. The deeper tissues were very gently reapproximated with several 2-0 Monocryl sutures. The skin was closed with a loosely applied 3-0 Prolene suture. The other areas of superficial sloughing were debrided. There is no clear evidence of abscess or purulent debris, but there is a lot of superficial sloughing and a large area of open abraded and raw dermis at the heel, these areas were gently cleansed and debrided. The entire [address] [address] OPERATIVE REPORT Name: ABHIJIT CHOUDHURY Room #: 410-P [facility] IN M.R.#: [id number] Admission: 10/01/16 Attend Phys: Scott Beckford DO Discharge: Date of : 48 Report #: [id number] foot and lower leg was then dressing using Silvadene over the areas, which were opened and raw and light gauze and soft will dressing for a gentle support and compression. The patient was then returned to the recovery room in good condition. <ELECTRONICALLY SIGNED> By: Gregor Dye MD 10/06/16 1001 0930 1011 Gregor Dye MD /nt
--- NOTE | ~2016-10-01 | EKG ---
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 10/08/16 0939 3 3 Ruiz Dominguez MD, [facility] /EPI
--- NOTE | ~2016-10-01 | H ---
[facility] [address] HISTORY AND PHYSICAL Name: ABHIJIT CHOUDHURY Room #: 430-P ADM IN M.R.#: [id number] Admission: 10/01/16 Attend Phys: Theodore Ochoa MD Discharge: Date of : 48 Report #: [id number] THIS REPORT FOR: //name// CC: Scott Ochoa DATE OF SERVICE: 10/01/2016 CHIEF COMPLAINT: Weakness and anemia. HISTORY OF PRESENT ILLNESS: The patient is a 66-year-old male who was just hospitalized here went over to [facility] for [facility]. He apparently had been having hematuria that was significant. We have been monitored, hemoglobin had been dropping gradually, it came down to 6.4 today. He saw urology yesterday and they scheduled a cystoscopy, but did not performed at that time. He does not currently have a catheter. He had been passing clots through the catheter that he had previously. His last admission was for CHF and edema. 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 MEDICATIONS: Cefdinir 300 mg b.i.d., amlodipine 5 mg a day, aspirin 81 mg a day, potassium 20 mEq b.i.d., magnesium 400 mg b.i.d., Colace 100 mg daily, nystatin 5 daily, allopurinol 100 mg a day, tamsulosin 0.4 mg at bedtime, Demadex 40 mg a day, lisinopril 20 mg a day, Coreg 12.5 mg b.i.d., Humalog and NovoLog sliding scale. ALLERGIES: SULFA and TAPE. SOCIAL HISTORY: Nonsmoker, nondrinker. He has been living at home. REVIEW OF SYSTEMS: CONSTITUTIONAL: No fever or chills. HEENT: No headaches or visual changes. CHEST: No chest pain, tightness in chest, shortness of breath, cough or sputum production. GASTROINTESTINAL: No nausea, vomiting, diarrhea or constipation. GENITOURINARY: No burning or frequency. He had hematuria. EXTREMITIES: Left second toe was chronic. He has got wounds on his shins and on his left heel. [facility] [address] [place] [address] HISTORY AND PHYSICAL Name: ABHIJIT CHOUDHURY Room #: [facility] IN [facility]#: [id number] Admission: 10/01/16 Attend Phys: Theodore Ochoa MD Discharge: Date of : 46 Report #: [id number] PHYSICAL EXAMINATION: VITAL SIGNS: Blood pressure 127/53, pulse is 69, respirations 21, he is afebrile. GENERAL: The patient is awake and alert, no acute distress. He is morbidly obese with 317 pounds: His mucous membranes are moist. His color is pale. NECK: Supple, without adenopathy, thyromegaly or bruits. CHEST: Clear to auscultation bilaterally. No crackles and wheezes. CARDIOVASCULAR: Regular rhythm without murmur. ABDOMEN: Obese, soft, no masses. Bowel sounds are active. EXTREMITIES: The right foot shows some prior amputations of the second through fifth toes, left foot second toe was black, necrotic and third and fourth toes are also dusky. There is a very large ulceration of the posterior heel. Skin flap hanging, looks like the blister just popped on the way over here, also a large blister on the irving and legs, there is some mild surrounding erythema. LABORATORY DATA: Sodium 133. Potassium 5.5, chloride 99, bicarbonate 27, BUN 104, creatinine 3.6, glucose 305, calcium 8.0, total bilirubin 0.2, D bili 0.1, AST 22, ALT 19. WBC 7.9, hemoglobin here at 6.8, hematocrit 21.2, platelet count 223, 79 segs, 10 lymphs. ASSESSMENT: 1. Severe anemia with history of congestive heart failure, needs to be admitted for transfusion and management of said anemia. We will diurese after each unit. 2. Chronic kidney disease. 3. Necrotic gangrene of the second toe on the left. We will consult Dr. Gonsales for wounds on the heel and irving. We will consult Dr. Aguilar for wound care. 4. History of diastolic heart failure. We will diurese accordingly. If he has any respiratory problems, we will consult pulmonary. 5. Diabetes mellitus, we will resume insulin in a sliding scale. 6. Coronary artery disease, stable, monitor symptoms. <ELECTRONICALLY SIGNED> By: Theodore Ochoa MD 10/10/16 0844 1703 11 Theodore Ochoa MD /nt
--- NOTE | ~2016-10-01 | EKG ---
[address] [address] ELECTROCARDIOGRAM REPORT Name: ABHIJIT CHOUDHURY Room #: 410-P ADM IN M.R.#: [id number] Admission: 10/01/16 Attend Phys: Scott Beckford DO Discharge: Date of : 48 Report #: [id number] THIS REPORT FOR: //name// [facility] Test Date: 2016-10-03 Test Time: 07:38:15 Pat Name: ABHIJIT CHOUDHURY Department: Room: 410 P Gender: M [employer]: VON : 1950 Requested By: Cesario Pickett Order Number: [id number] MD: Cesario Pickett Measurements Intervals Java Rate: 83 P: 23 VT: 203 QRS: 94 QRSD: 171 T: 22 QT: 421 QTc: 495 Interpretive Statements Sinus arrhythmia RBBB and LPFB Compared to ECG 09/21/2016 04:13:30 Left posterior fascicular block now present Electronically Signed On 10-03-2016 20:15:50 CDT by Cesario Pickett [email or web address] <ELECTRONICALLY SIGNED> By: Cesario Pickett MD 10/03/162014 7 7 Cesario Pickett MD /CARMELINA
--- NOTE | ~2016-10-01 | HC ---
[facility] [place] [address] CONSULTATION Name: ABHIJIT CHOUDHURY Room #: 245-[facility] IN M.R.#: [id number] Admission: 10/01/16 Attend Phys: Scott Beckford DO Discharge: Date of : 48 Report #: [id number] THIS REPORT FOR: //name// CC: Scott Ochoa DATE OF SERVICE: 10/07/2016 REFERRING PHYSICIAN: Dr. Theodore Ochoa. REASON FOR REFERRAL: Acute respiratory failure. HISTORY OF PRESENT ILLNESS: The patient is a 66-year-old white male with long history of diabetes, admitted on 10/01/2016 for anemia. Yesterday, the patient underwent left lower extremity angiogram. He then had laser along with angioplasty involving the vessels into the foot. Early this morning, patient was apparently moved to his bed. I believe he was in the commode. When the patient was moved to his bed, he became bradycardic and proceeded to lose consciousness. According to the nursing, the patient was also in a reverse Trendelenburg position. The patient received CPR briefly. He then awoken with return of pulse and blood pressure. This event occurred around 5:00 a.m. this morning. The rhythm was primarily bradycardic without evidence of V-tach or ventricular fibrillation. He was then intubated and was transferred to the ICU. Currently, he is stable hemodynamically. He is in normal sinus rhythm. He is requiring sedation due to restlessness. According to the RN, patient has moderate thick lightish brown secretions from the ET tube. Portable chest x-ray post-intubation revealed a chronic right-sided pleural effusion, cardiomegaly with vascular congestion. No consolidation air bronchogram noted. Since hospitalization, the patient felt anemia due to his hematuria, he has chronic kidney disease with a creatinine of around 3. PAST MEDICAL HISTORY: Notable for longstanding history of diabetes mellitus with multiple comorbid conditions including peripheral artery disease, undergoing coronary artery bypass surgery, multiple partial toe amputation for chronic foot ulcers, pulmonary hypertension, severe. Recent echocardiogram from 09/2016 revealed ejection fraction of 50%, pulmonary artery pressure measuring 88 mmHg with hypokinesis involving the inferior apex, NOAH on CPAP, history of osteomyelitis, history of MRSA infections. He has chronic diastolic heart failure. [address] [address] CONSULTATION Name: ABHIJIT CHOUDHURY Room #: 245-P ADM IN M.R.#: [id number] Admission: 10/01/16 Attend Phys: Scott Beckford DO Discharge: Date of : 48 Report #: [id number] PAST SURGICAL HISTORY: As mentioned above. ALLERGIES: SULFA AND TAPE, reactions not specified. MEDICATIONS: Reviewed in the medication list. FAMILY HISTORY: Noncontributory. SOCIAL HISTORY: He is . Most recently, he was [facility] for ongoing [facility] therapy. Normally, he lives at home with his . REVIEW OF SYSTEMS: Deferred as the patient is intubated. PHYSICAL EXAMINATION: GENERAL: The patient is sedated. VITAL SIGNS: Temperature is 98 degrees Fahrenheit, pulse 74, respiratory rate is 16, blood pressure 110/41 mmHg, saturation 100%. HEENT: Normocephalic, atraumatic. NECK: Supple, without any lymphadenopathy or thyromegaly. CHEST: Breath sounds are clear anteriorly without any rales or wheezes. CARDIOVASCULAR: Normal S1, S2. There are no obvious murmurs or gallop. ABDOMEN: Obese, soft, nontender, no organomegaly or masses felt. GENITOURINARY AND RECTAL: Deferred. EXTREMITIES: There is no cyanosis or clubbing but remarkable for 1+ bilateral pretibial edema. Chronic wounds are noted in the lower extremities along with partial toe amputation involving his right foot. LABORATORY DATA: Portable chest x-ray as mentioned above. Sodium 135, potassium 5.7, chloride 98, CO2 is 28, BUN is 76, creatinine is 3.3. His baseline. appears to be around 3, albumin 1.9. WBC is 11,800, hemoglobin is 7.6, platelets are normal. Arterial blood gas post-intubation revealed pH 7.47, pCO2 of 36, pO2 of 208 on FIO2 of 60%. IMPRESSION: 1. Acute hypoxic respiratory failure in this 66-year-old white male with multiple comorbid conditions including severe diabetes mellitus along with peripheral artery disease. He had a procedure yesterday with an arteriogram. He had a procedure involving his lower extremities yesterday. Based on the sequence of events, patient is felt to have bradycardia, etiology, may be related to hypoxia due to increased secretions. Note that patient was in reverse Trendelenburg when he was transferred on to bed. No ventricular dysrhythmias were noted and patient probably recovered with brief CPR. 2. NOAH, patient has been noncompliant with the use of CPAP at home. 3. Chronic kidney disease, stage 4, the patient still makes urine, currently undergoing diuresis. 4. Chronic right-sided pleural effusion. [facility] [address] [place] [address] CONSULTATION Name: ABHIJIT CHOUDHURY Room #: 245-P ADM IN M.R.#: [id number] Admission: 10/01/16 Attend Phys: Scott Beckford DO Discharge: Date of : 48 Report #: [id number] 5. Hypokalemia, which he is being addressed. 6. 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 7. Severe protein-calorie malnutrition with an albumin of 1.8. 8. Anemia, symptoms stabilized around 7-8, it was 6.8 on admission. The patient has a history of hematuria. RECOMMENDATION: We will continue mechanical ventilation, check sputum for gram stain culture and sensitivity, start antibiotics if indicated. Follow up chest x-ray. He does have chronic pleural effusion, does not appear to be large. I do not think thoracentesis is necessary at this time. Bronchodilators will be initiated. We will try to reassess for possible weaning if he is able to be weaned off to sedation. At this time, he is somewhat restless, requiring sedation. We will continue current care. Follow up chest x-ray. Discussed with the patient's . Thank you for the consultation. <ELECTRONICALLY SIGNED> By: Scott Castillo MD 10/08/16 1548 1100 50 Scott Castillo MD /nt
--- NOTE | ~2016-10-01 | S ---
[facility] [place] [address] SURGICAL PATH RPT PROCEDURE Name: RAYO CHOUDHURY Room #: 441-P ADM IN M.R.#: [id number] Admission: 10/01/16 Date of : 46 Discharge: Report #: [id number] Path Case #: [id number] PATHOLOGY REPORT COLLECTION DATE: 10/04/2016 RECEIVED DATE: 10/04/2016 SUBMITTING PHYS: Dr. Gregor Dye OTHER PHYS: Dr. Scott Ochoa SPECIMEN(S) RECEIVED: A.Left second toe in formalin * * * * * * * * * * * * FINAL DIAGNOSIS: "Left second toe in formalin," amputation: - Skin and subcutaneous tissue with acute and chronic inflammation, necrosis, granulation tissue, and pseudoepitheliomatous hyperplasia. - Decalcified bone with focal acute osteomyelitis / osteonecrosis. (CLW:; d/t: 10/06/16) PATHOLOGIST: Salome Savage M.D. REPORT ELECTRONICALLY SIGNED BY: Salome Savage M.D. DATE/TIME: 10/06/2016 21:53 * * * * * * * * * * * * GROSS PATHOLOGY: The specimen is received in formalin labeled "Rayo Choudhury, left second toe". Received is an amputated digit measuring 5.2 x 2.5 x 1.9 cm in greatest dimensions. The bone margin is jagged in appearance. The bone and soft tissue margins are inked black. The nail is absent. The epidermal surface is predominantly moralez-brown to black and focally crusted in appearance. It full-thickness longitudinal cross-section is submitted, from proximal to distal aspects, in cassettes A1 and A2, following decalcification. Also received within the specimen container is an additional segment of bone displaying a smooth articulate surface measuring 1.5 x 1.0 x 0.3 cm in greatest dimensions. The specimen is submitted representatively in cassette A3, following decalcification. (CAA; 10/05/2016) CLINICAL HISTORY: Gangrene left second toe INITIAL CPT CODE(S): [address] [address] SURGICAL PATH RPT PROCEDURE Name: RAYO CHOUDHURY Room #: 441-P ADM IN M.R.#: [id number] Admission: 10/01/16 Date of : 48 Discharge: Report #: [id number] Path Case #: [id number] Professional services performed by [facility] at [address], [place] [address] Technical services performed by [facility] at [address] [place] [address], [facility] [address] [address]. [facility] [address] [place] [address] PHONE: [phone] DIRECTOR: López Celis M.D. * * * END OF REPORT * * *
--- NOTE | ~2016-10-01 | HC ---
[facility] [place] [address] CONSULTATION Name: ABHIJIT CHOUDHURY Room #: 410-P [facility] IN M.R.#: [id number] Admission: 10/01/16 Attend Phys: Scott Beckford DO Discharge: Date of : 48 Report #: [id number] THIS REPORT FOR: //name// CC: Scott Jaimes Ochoa DATE OF SERVICE: 10/02/2016 CONSULTATION: Infectious diseases. HISTORY OF PRESENT ILLNESS: The patient is a 66-year-old white male admitted to [facility] October 01 complaining of overall weakness. The patient had been admitted earlier on September 21 with similar complaints, was found to have acute heart failure. He was hospitalized for 5 days and then discharged to rehab. At rehab, he was noted to have anemia with hemoglobin of 6.4 and hematuria. He was directed back for acute care hospitalization for evaluation and treatment. Infectious disease consultation was requested for diabetic foot wounds. PAST MEDICAL HISTORY: Significant for diabetes. The patient has coronary artery disease with peripheral artery disease. He has known congestive heart failure. He has had diabetic foot wounds in the past and he has had several toe amputations. He has sleep apnea. On the right foot, he has amputation of the third, fourth and fifth toe. On the left foot, he has gangrene of the second toe and amputation is planned for next week. There is a distant past history of coronary artery bypass graft. The patient has a history of SULFA allergies. FAMILY HISTORY: Noncontributory. REVIEW OF SYSTEMS: The patient really denies having any discomfort or pain in his lower extremities. He notes the weakness, which has improved since coming to the hospital. He did have marked swelling of his feet, which is improved somewhat with compression wrap. The patient denies any head or neck symptoms. He is not complaining of dyspnea or shortness of breath. He is very weak and is minimally ambulatory. He denies any angina, syncope nor arrhythmias. The patient is not having any GI symptoms. He denies symptoms. The hematuria has resolved. No pain in his extremities. PHYSICAL EXAMINATION: GENERAL: The patient appears his stated age, alert, oriented, comfortable, not in any distress. VITAL SIGNS: Show the patient is afebrile, blood pressure is normal. SKIN: Had no visible rash, lesions or exanthem. The legs were in bilateral multilevel compression wraps including a layer of Coban tape. [facility] [address] [place] [address] CONSULTATION Name: ABHIJIT CHOUDHURY PASTOR Room #: 410-P [facility] IN .R.#: [id number] Admission: 10/01/16 Attend Phys: Scott Beckford DO Discharge: Date of : 48 Report #: [id number] photographs were present in the chart describing multiple relatively superficial wounds that looks like venous stasis, ruptured blisters and particularly a large area of denuded epithelium on the left heel. It appeared, however, that there was dermis at the base of the large heel wound. The pulses in distal extremities including the previous surgeries in the gangrenous toe could not be seen because of the wrap. The upper extremities are unremarkable. ENT: Negative. Cognitive function intact. HEART: Sounds normal. LUNGS: Clear. ABDOMEN: Belly obese, soft, not tender. LABORATORY DATA: White count is 8.3, hemoglobin was 6.8 in the ER, it was 6.4 in rehab. He has been transfused up to 8.9 with hematocrit 27%, platelets 236,000. The electrolytes were notable for his sodium low at 134, potassium high at 5.8, chloride 99, bicarbonate 26, BUN was 19. The creatinine had risen from 2.7-3.4. The B-type natriuretic peptide initially was over 12,000. Review of the previous radiology studies done earlier in September showed that addendum of an arterial Doppler have suggested bilateral stenosis of the anterior tibial arteries. In summary, we have the patient with severe heart failure. He became quite edematous in the legs and when the edema resolved, there were deep blisters including one which was under the epithelium of the callus on his left foot causing the entire callus over the heel to desquamate. I suspect most of the diabetic foot wounds are relatively superficial. I am not highly suspicious that the heel represents osteomyelitis, although direct examination limited by the dressings. I am concerned about the bilateral anterior tibial artery stenosis, particularly the patient is developing gangrene of the toes. We could do plain films of the foot looking for osteomyelitis. An MRI would be more sensitive, although we would not be able to use contrast with the elevated creatinine. I think control of diabetes, heart failures, swelling and wound care will probably resolve these wounds and answer the question about whether there is underlying osteomyelitis. It maybe worthwhile to have the vascular consult to see if it is worthwhile to intervene on the anterior tibial artery stenosis, particularly with the patient's upcoming toe surgery. With his diabetic foot wounds, it would be worthwhile to rule out any metabolic causes of poor healing. I do not find hemoglobin A1c in the records. We will order that as well as check a zinc level, TSH level and a prealbumin. While in the room, the nurses noted the patient was developing diarrhea and I asked him to collect the specimen for C. difficile. For now continue the patient on Rocephin, although if he does well, this could probably be discontinued in the near future as well. [facility] [address] [place] [address] CONSULTATION Name: ABHIJIT CHOUDHURY PASTOR Room #: 410-P ADM IN M.R.#: [id number] Admission: 10/01/16 Attend Phys: Scott Beckford DO Discharge: Date of : 48 Report #: [id number] I appreciate the opportunity to offer input in the care of this complex patient. I will be happy to follow him through the weekend until Dr. Pickett returns on Tuesday. Thank you for this referral. <ELECTRONICALLY SIGNED> By: Paras Burch MD 10/03/16 2139 0834 11 Paras Burch MD /nt
--- NOTE | ~2016-10-01 | HC ---
[facility] [place] [address] CONSULTATION Name: ABHIJIT CHOUDHURY Room #: 430-P ADM IN M.R.#: [id number] Admission: 10/01/16 Attend Phys: Theodore Ochoa MD Discharge: Date of : 48 Report #: [id number] THIS REPORT FOR: //name// CC: Scott Ochoa REASON FOR CONSULTATION: CHF. HISTORY OF PRESENT ILLNESS: The patient is a 66-year-old with known coronary artery disease and diastolic heart failure, discharged on the after being admitted for congestive heart failure. He was sent back to his rehab facility, was having hematuria and hemoglobin was continuing to drop down to 6.5. He was brought to the ER, found to be anemic. He denies any chest pain. He has been having some increased shortness of breath. He has basically been in bed most of the time. He has noted increasing lower extremity edema. He is having some orthopnea while lying in bed. REVIEW OF SYSTEMS: GENERAL: No fevers or chills. HEENT: No blurred vision. CARDIOVASCULAR: As above. PULMONARY: No productive cough. GASTROINTESTINAL: No nausea or vomiting. GENITOURINARY: No dysuria, but he has been having hematuria. MUSCULOSKELETAL: He has been having some lower extremity pain, discomfort in the shins with redness and swelling. NEUROLOGIC: No focal weakness. PAST MEDICAL HISTORY: 1. Diastolic heart failure. 2. Echo 09/2016, EF 50%-55% with PA pressures of 88 mmHg and evidence of hypokinesis in the inferior apex. 3. Pulmonary hypertension, severe. 4. Hematuria. 5. Chronic renal insufficiency. Creatinine at baseline is around 3. 6. Diabetes. 7. Coronary artery disease, status post CABG. 8. Osteomyelitis. 9. Obstructive sleep apnea. 10. MRSA infection. SOCIAL HISTORY: Does not smoke. 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 FAMILY HISTORY: Noncontributory. ALLERGIES: Include SULFA and TAPE. [facility] [address] [place] [address] CONSULTATION Name: ABHIJIT CHOUDHRUY Room #: 430-P [facility] IN .R.#: [id number] Admission: 10/01/16 Attend Phys: Theodore Ochoa MD Discharge: Date of : 46 Report #: [id number] MEDICATIONS: Tamsulosin, torsemide 40 a day, lisinopril 40 a day, Coreg 12.5 a day, insulin, cefdinir antibiotic, amlodipine 5 mg a day, aspirin and allopurinol. PHYSICAL EXAMINATION: VITAL SIGNS: Temperature is 37.0, pulse 71, respiration 16, blood pressure 163/77 and sats 96%. GENERAL: He is morbid obesity, no acute distress. HEENT: Oropharynx is clear. NECK: Supple, with no thyromegaly or carotid bruits. HEART: Regular rate and rhythm. He does have elevated jugular venous pressure and a positive hepatojugular reflex. LUNGS: Clear to auscultation bilaterally. ABDOMEN: Soft, nontender and nondistended. EXTREMITIES: There is 1+ to 2+ lower extremity edema with evidence of cellulitis. NEUROLOGICAL: Cranial nerves 2-12 are intact. LABORATORY DATA: White count is 8.5, hemoglobin is 8.9, up from 6.8. His platelets are 236. Chemistries: Sodium 134, potassium 5.8, BUN 100 and creatinine 3.4. BNP pending. ASSESSMENT AND PLAN: In summary, the patient is a 66-year-old with known coronary artery disease status post CABG with a history of diastolic heart failure and pulmonary hypertension, who presents with worsening shortness of breath as well as worsening anemia. He appears to be in acute diastolic heart failure. I recommended checking a proBNP. I recommend changing his diuretics to IV. I will try to optimize his blood pressure by increasing his amlodipine. In terms of his renal insufficiency, this may need to be monitored closely by the nephrology service. In terms of his cellulitis and prior MRSA and known osteomyelitis, we recommend ID consult as well. <ELECTRONICALLY SIGNED> By: Cesario Pickett MD 10/11/16 0855 1217 2103 Cesario Pickett MD /nt
[2016-10-01 13:17] VITALS: BP 127/53
[2016-10-01 13:57] LABS: ABSOLUTE NEUTROPHILS 6.3 thou/uL (1.4-8.2); RDW 16.4 % (10.5-14.5)
[2016-10-01 13:58] LABS: BASOPHILS 0.1 % (0.0-2.0); EOSINOPHILS 3.7 % (0.0-3.0); HEMATOCRIT 21.2 % (42.0-52.0); LYMPHOCYTES 10.8 % (24.0-44.0); MCH 26.8 pg (26.0-34.0); MCHC 32.2 g/dL (28.0-37.0); MONOCYTES 6.5 % (1.0-8.0); PLATELET COUNT 223 thou/uL (150-400); POLYS 78.9 % (36.0-66.0); RBC 2.56 mil/uL (4.50-6.00); WBC 7.9 thou/uL (4.0-11.0)
[2016-10-01 14:00] LABS: MANUAL DIFF NO
[2016-10-01 14:02] LABS: HEMOGLOBIN 6.8 gm/dL (14.0-18.0)
[2016-10-01 14:06] LABS: ANION GAP 7 mmol/L (7-16); BUN 104 mg/dL (7-18); CHLORIDE 99 mmol/L (98-107); CO2 27 mmol/L (21-32); CREATININE 3.6 mg/dL (0.6-1.3); GLUCOSE 305 mg/dL (70-99); POTASSIUM 5.5 mmol/L (3.5-5.1); SODIUM 133 mmol/L (136-145)
[2016-10-01 14:11] LABS: ALBUMIN 2.1 g/dL (3.4-5.0); ALKALINE PHOSPHATASE 83 U/L (46-116); DIRECT BILIRUBIN < 0.1 mg/dL (<0.1-0.3); SGOT 22 U/L (15-37); SGPT 19 U/L (30-65); TOTAL BILIRUBIN 0.2 mg/dL (<0.1-1.0); TOTAL PROTEIN 5.3 g/dL (6.4-8.2)
[2016-10-01 15:47] VITALS: BP 124/46
[2016-10-01 20:05] VITALS: BP 130/49
[2016-10-01 20:20] VITALS: BP 131/63
[2016-10-01 20:29] VITALS: BP 131/63; BP 144/63
[2016-10-01 22:43] VITALS: BP 135/54; BP 144/63; BP 149/57
[2016-10-02 04:00] VITALS: BP 139/55
[2016-10-02 04:47] LABS: HEMATOCRIT 27.2 % (42.0-52.0); MCH 26.9 pg (26.0-34.0); MCHC 32.6 g/dL (28.0-37.0); MCV 82.6 fL (80.0-100.0); RBC 3.29 mil/uL (4.50-6.00); RDW 15.9 % (10.5-14.5); WBC 8.5 thou/uL (4.0-11.0)
[2016-10-02 04:52] LABS: HEMOGLOBIN 8.9 gm/dL (14.0-18.0)
[2016-10-02 05:55] LABS: CALCIUM 8.2 mg/dL (8.5-10.1); CREATININE 3.4 mg/dL (0.6-1.3); POTASSIUM 5.8 mmol/L (3.5-5.1)
[2016-10-02 07:50] VITALS: BP 163/77
[2016-10-02 16:38] VITALS: BP 167/74
[2016-10-02 19:50] VITALS: BP 178/77
[2016-10-02 23:47] VITALS: BP 181/78
[2016-10-03 03:43] VITALS: BP 172/78
[2016-10-03 04:33] LABS: CALCIUM 8.4 mg/dL (8.5-10.1); CREATININE 3.1 mg/dL (0.6-1.3)
[2016-10-03 04:43] LABS: HEMATOCRIT 27.2 % (42.0-52.0); HEMOGLOBIN 8.8 gm/dL (14.0-18.0); MCH 26.8 pg (26.0-34.0); MCHC 32.4 g/dL (28.0-37.0); MCV 82.9 fL (80.0-100.0); RBC 3.28 mil/uL (4.50-6.00); RDW 16.1 % (10.5-14.5); WBC 10.7 thou/uL (4.0-11.0)
[2016-10-03 04:55] LABS: POTASSIUM 4.6 mmol/L (3.5-5.1)
[2016-10-03 07:51] VITALS: BP 167/71
[2016-10-03 15:56] VITALS: BP 140/66
[2016-10-03 20:00] VITALS: BP 122/69
[2016-10-04] VITALS (9 sets, daily range): BP systolic 159–172; BP diastolic 53–85
[2016-10-04 00:05] LABS: GLYCOHEMOGLOBIN (HGB A1C) 7.1 % (4.8-5.6)
[2016-10-04 05:57] LABS: HEMATOCRIT 26.4 % (42.0-52.0); HEMOGLOBIN 8.7 gm/dL (14.0-18.0); MCHC 32.8 g/dL (28.0-37.0); MCV 82.4 fL (80.0-100.0); RBC 3.2 mil/uL (4.50-6.00); RDW 16.1 % (10.5-14.5); WBC 9.4 thou/uL (4.0-11.0)
[2016-10-04 06:11] LABS: ALBUMIN 1.9 g/dL (3.4-5.0); CALCIUM 8.2 mg/dL (8.5-10.1); CREATININE 2.9 mg/dL (0.6-1.3); PHOSPHORUS 4.4 mg/dL (2.5-4.9); POTASSIUM 4.4 mmol/L (3.5-5.1)
[2016-10-04 06:20] LABS: % SATURATION 6 % (20-39); IRON 11 ug/dL (65-175); TIBC 174 ug/dL (250-450); UIBC 163 ug/dL
[2016-10-05 00:40] VITALS: BP 143/73
[2016-10-05 04:20] VITALS: BP 156/71
[2016-10-05 06:28] LABS: ALBUMIN 1.9 g/dL (3.4-5.0); CALCIUM 8.2 mg/dL (8.5-10.1); CREATININE 2.8 mg/dL (0.7-1.3); PHOSPHORUS 4.4 mg/dL (2.5-4.9); POTASSIUM 5.2 mmol/L (3.5-5.1)
[2016-10-05 06:47] LABS: HEMATOCRIT 25.4 % (42.0-52.0); HEMOGLOBIN 8.1 gm/dL (14.0-18.0); MCH 26.8 pg (26.0-34.0); MCHC 32.1 g/dL (28.0-37.0); MCV 83.4 fL (80.0-100.0); RBC 3.04 mil/uL (4.50-6.00); WBC 8.8 thou/uL (4.0-11.0)
[2016-10-05 08:00] VITALS: BP 153/70
[2016-10-05 21:28] VITALS: BP 142/64
[2016-10-06] VITALS (13 sets, daily range): BP systolic 127–169; BP diastolic 47–80
[2016-10-06 06:31] LABS: ALBUMIN 1.8 g/dL (3.4-5.0); CALCIUM 8.1 mg/dL (8.5-10.1); PHOSPHORUS 4.3 mg/dL (2.5-4.9); POTASSIUM 5.4 mmol/L (3.5-5.1)
[2016-10-07] VITALS (38 sets, daily range): BP systolic 111–173; BP diastolic 41–89
[2016-10-07 05:26] LABS: HEMATOCRIT 24.5 % (42.0-52.0); HEMOGLOBIN 7.6 gm/dL (14.0-18.0); MCH 26.3 pg (26.0-34.0); MCHC 31.1 g/dL (28.0-37.0); MCV 84.7 fL (80.0-100.0); RBC 2.89 mil/uL (4.50-6.00); RDW 16.6 % (10.5-14.5); WBC 11.8 thou/uL (4.0-11.0)
[2016-10-07 05:39] LABS: ALBUMIN 1.9 g/dL (3.4-5.0); CALCIUM 7.9 mg/dL (8.5-10.1); CREATININE 3.3 mg/dL (0.7-1.3); PHOSPHORUS 5.1 mg/dL (2.5-4.9); POTASSIUM 5.7 mmol/L (3.5-5.1)
[2016-10-07 07:21] LABS: ABG SAMPLE TYPE ARTERIAL; BE(vivo) 2.6 mmol/L (-2 to +3); HCO3 26.3 mmol/L (22.0-26.0); LACTATE 1.61 mmol/L (0.5-2.0); PCO2 36.6 mmHg (35.0-45.0); PO2 208.2 mmHg (80.0-100.0); pH 7.474 (7.360-7.450); sO2 99.5 % (92.0-98.0); tCO2 27.4 mmol/L (24.0-30.0)
[2016-10-07 07:22] LABS: STICK SITE R.BRACHIAL; TIDAL VOLUME 650 ml
[2016-10-08] VITALS (25 sets, daily range): BP systolic 112–156; BP diastolic 44–98
[2016-10-08 04:48] LABS: ALBUMIN 1.7 g/dL (3.4-5.0); CALCIUM 8.4 mg/dL (8.5-10.1); PHOSPHORUS 4.1 mg/dL (2.5-4.9)
[2016-10-08 05:28] LABS: HEMATOCRIT 24.2 % (42.0-52.0); HEMOGLOBIN 7.9 gm/dL (14.0-18.0); MCH 26.6 pg (26.0-34.0); MCHC 32.8 g/dL (28.0-37.0); MCV 81.1 fL (80.0-100.0); RBC 2.98 mil/uL (4.50-6.00); WBC 7.9 thou/uL (4.0-11.0)
[2016-10-08 09:11] LABS: ABG COMMENT CPAP TRIAL; ABG SAMPLE TYPE ARTERIAL; BE(vivo) 7.9 mmol/L (-2 to +3); HCO3 32.2 mmol/L (22.0-26.0); LACTATE 1.03 mmol/L (0.5-2.0); O2(CT) 12.9 mL/dL (15.0-23.0); O2Hb 97.3 % (92.0-98.0); PCO2 44.3 mmHg (35.0-45.0); PO2 116.4 mmHg (80.0-100.0); Pressure Support 5 cm H20; STICK SITE R.BRACHIAL; pH 7.479 (7.360-7.450); sO2 98.5 % (92.0-98.0); tCO2 33.5 mmol/L (24.0-30.0)
[2016-10-09] VITALS (10 sets, daily range): BP systolic 109–150; BP diastolic 45–113
[2016-10-09 03:44] LABS: HEMATOCRIT 23.7 % (42.0-52.0); HEMOGLOBIN 7.6 gm/dL (14.0-18.0); MCH 26.2 pg (26.0-34.0); MCHC 32.2 g/dL (28.0-37.0); MCV 81.4 fL (80.0-100.0); RBC 2.91 mil/uL (4.50-6.00); RDW 16.6 % (10.5-14.5); WBC 8.7 thou/uL (4.0-11.0)
[2016-10-09 04:00] LABS: ALBUMIN 1.6 g/dL (3.4-5.0); CALCIUM 7.9 mg/dL (8.5-10.1); CREATININE 2.9 mg/dL (0.7-1.3); PHOSPHORUS 4.9 mg/dL (2.5-4.9); POTASSIUM 4.3 mmol/L (3.5-5.1)
[2016-10-10 04:30] VITALS: BP 153/53
[2016-10-10 06:53] LABS: ALBUMIN 1.7 g/dL (3.4-5.0); CALCIUM 7.8 mg/dL (8.5-10.1); CREATININE 2.8 mg/dL (0.7-1.3); PHOSPHORUS 5.1 mg/dL (2.5-4.9); POTASSIUM 4.3 mmol/L (3.5-5.1)
[2016-10-10 08:00] VITALS: BP 158/90
[2016-10-10 12:19] VITALS: BP 130/70
[2016-10-10 16:19] VITALS: BP 142/80
[2016-10-11 05:09] VITALS: BP 149/73
[2016-10-11 05:47] LABS: ALBUMIN 1.7 g/dL (3.4-5.0); CALCIUM 7.9 mg/dL (8.5-10.1); CREATININE 2.7 mg/dL (0.7-1.3); PHOSPHORUS 4.8 mg/dL (2.5-4.9); POTASSIUM 4.4 mmol/L (3.5-5.1)
[2016-10-11 07:30] VITALS: BP 122/73
[2016-10-11 20:00] VITALS: BP 129/61
[2016-10-12 04:19] VITALS: BP 169/65
[2016-10-12 06:19] LABS: ALBUMIN 1.9 g/dL (3.4-5.0); CREATININE 2.7 mg/dL (0.7-1.3)
[2016-10-12 08:26] VITALS: BP 138/54
[2016-10-12 17:20] VITALS: BP 156/75
[2016-10-12 20:00] VITALS: BP 143/53
[2016-10-13 04:32] VITALS: BP 152/74
[2016-10-13 05:26] LABS: HEMATOCRIT 24.6 % (42.0-52.0); HEMOGLOBIN 7.7 gm/dL (14.0-18.0); MCH 25.9 pg (26.0-34.0); MCHC 31.5 g/dL (28.0-37.0); MCV 82.1 fL (80.0-100.0); RBC 2.99 mil/uL (4.50-6.00); RDW 16.5 % (10.5-14.5); WBC 7.7 thou/uL (4.0-11.0)
[2016-10-13 05:39] LABS: ALBUMIN 1.9 g/dL (3.4-5.0); CALCIUM 8.3 mg/dL (8.5-10.1); CREATININE 2.7 mg/dL (0.7-1.3); INR 1.1; PHOSPHORUS 3.9 mg/dL (2.5-4.9); POTASSIUM 4.8 mmol/L (3.5-5.1); PROTIME 11.8 Seconds (9.3-11.4)
[2016-10-13 07:33] VITALS: BP 130/70
[2016-10-13 15:59] VITALS: BP 144/80
[2016-10-13 20:00] VITALS: BP 147/57
[2016-10-14 04:00] VITALS: BP 142/62
[2016-10-14 06:25] LABS: ALBUMIN 1.9 g/dL (3.4-5.0); CALCIUM 7.9 mg/dL (8.5-10.1); CREATININE 2.7 mg/dL (0.7-1.3); POTASSIUM 5.2 mmol/L (3.5-5.1)
[2016-10-14 08:15] VITALS: BP 149/61
[2016-10-14] MEDS ORDERED: CLOPIDOGREL75 MG PO (12:50)
[2016-10-14] MEDS ORDERED: VANCOMYCIN100 MG/ML PO (12:50)
[2016-10-14] MEDS ORDERED: DUONEB 2.5-0.5 M3 ML INH (12:50)
[2016-10-14] MEDS ORDERED: DEMADEX 2020 MG/1 TA PO (12:51)
[2016-10-14] MEDS ORDERED: ATORVASTATIN CA80 MG PO (12:51)
[2016-10-14] MEDS ORDERED: HYDROCODON-ACE1 EAC7 PO (12:52)
== END 2016-10-14 17:30 | DRG 853 ==
LOC: ER 13:15 → 4N 14:39 → ICU 14:39 → 4E 14:39 → EROBS 14:39 → 5S 15:23 → EROBS 15:27 → 4N 15:50 → 4S 10-06 14:39 → ICU 10-07 06:13 → 4E 10-09 14:18
PROVIDERS: Emergency Medicine; Family Medicine; Hospitalist; Internal Medicine Infectious Disease; Internal Medicine Nephrology; Nuclear Medicine Nuclear Cardiology; Nurse Practitioner; Nurse Practitioner Acute Care
PROC: 30233N1 Transfusion of Nonautologous Red Blood Cells into Peripheral Vein, Percutaneous Approach (ICD-10-PCS; 2016-10-01)
PROC: 0Y6S0Z0 Detachment at Left 2nd Toe, Complete, Open Approach (ICD-10-PCS; principal; 2016-10-04)
PROC: 0BH17EZ Insertion of Endotracheal Airway into Trachea, Via Natural or Artificial Opening (ICD-10-PCS; 2016-10-07)
PROC: 5A1945Z Respiratory Ventilation, 24-96 Consecutive Hours (ICD-10-PCS; 2016-10-07)
DX: A41.9 Sepsis, unspecified organism (principal); J96.01 Acute respiratory failure with hypoxia; J18.9 Pneumonia, unspecified organism; I46.9 Cardiac arrest, cause unspecified; N17.9 Acute kidney failure, unspecified; E11.52 Type 2 diabetes mellitus with diabetic peripheral angiopathy with gangrene; M86.9 Osteomyelitis, unspecified; A04.7 Enterocolitis due to Clostridium difficile; I13.0 Hypertensive heart and chronic kidney disease with heart failure and stage 1 through stage 4 chronic kidney disease, or unspecified chronic kidney disease; N18.4 Chronic kidney disease, stage 4 (severe); I50.32 Chronic diastolic (congestive) heart failure; L97.929 Non-pressure chronic ulcer of unspecified part of left lower leg with unspecified severity; L97.919 Non-pressure chronic ulcer of unspecified part of right lower leg with unspecified severity; M31.9 Necrotizing vasculopathy, unspecified; J90 Pleural effusion, not elsewhere classified; L03.116 Cellulitis of left lower limb; Z68.41 Body mass index [BMI] 40.0-44.9, adult; A49.02 Methicillin resistant Staphylococcus aureus infection, unspecified site; D64.9 Anemia, unspecified; E87.5 Hyperkalemia; R31.9 Hematuria, unspecified; I99.9 Unspecified disorder of circulatory system; I27.2 Other secondary pulmonary hypertension; I25.10 Atherosclerotic heart disease of native coronary artery without angina pectoris; E11.69 Type 2 diabetes mellitus with other specified complication; G47.33 Obstructive sleep apnea (adult) (pediatric); E78.5 Hyperlipidemia, unspecified; I87.2 Venous insufficiency (chronic) (peripheral); Z79.899 Other long term (current) drug therapy; E11.22 Type 2 diabetes mellitus with diabetic chronic kidney disease; E11.51 Type 2 diabetes mellitus with diabetic peripheral angiopathy without gangrene; L89.620 Pressure ulcer of left heel, unstageable; E66.9 Obesity, unspecified; D72.829 Elevated white blood cell count, unspecified; J40 Bronchitis, not specified as acute or chronic; R33.9 Retention of urine, unspecified; I89.0 Lymphedema, not elsewhere classified; Z79.82 Long term (current) use of aspirin; Z95.1 Presence of aortocoronary bypass graft; Z88.2 Allergy status to sulfonamides; Z86.74 Personal history of sudden cardiac arrest; Z95.820 Peripheral vascular angioplasty status with implants and grafts
CPT/HCPCS: 10078; 10091; 10183; 10195; 50010; 50101; 50386; 56525; 57091; 62110; 62850; 70005

== ENCOUNTER 2016-11-26 17:57 | Inpatient (IN) | payer OTHER, MEDICARE ==
[~2016-11-26] VITALS: Ht 182.9 cm; Wt 122.6 kg
[2016-11-26] VITALS (11 sets, daily range): BP systolic 98–163; BP diastolic 38–79
--- NOTE | ~2016-11-26 | HC ---
[facility] [place] [address] CONSULTATION Name: ABHIJIT CHOUDHURY Room #: 209-P [facility] IN M.R.#: [id number] Admission: 11/26/16 Attend Phys: Luis Espinoza MD Discharge: Date of : 48 Report #: [id number] THIS REPORT FOR: //name// CC: Alecia Espinoza DATE OF SERVICE: 12/01/2016 PERSONAL PHYSICIAN: Romeo Aguilar MD CHIEF COMPLAINT: Decubitus ulcers. HISTORY OF PRESENT ILLNESS: This is a 66-year-old white male who has had a longstanding history of left heel decubitus ulcer and multiple venous stasis ulcers on bilateral lower extremities, left greater than right. We have been following him for several months. The patient unfortunately has had now a fourth bradycardic arrest requiring CPR within the past month. He supposedly was on dialysis prior to this last admission when he became hypotensive and went into PEA. The patient supposedly had CPR given. The patient was given a single shock and 2 rounds of epinephrine. The patient had return of spontaneous circulation. The patient is currently now in the CCU on dialysis and I was asked to evaluate his wounds while he was here. The patient states he has no pain in his wounds. At this time, the patient denies any other associated complaints except for pain on his chest wall where he had what appears to be fuentes from the electrodes from his cardiac shock. PAST MEDICAL HISTORY: Significant for chronic venous insufficiency with multiple venous insufficiency ulcerations, history of PEA arrest x 4 in the past month with resuscitation, coronary artery disease with remote coronary artery bypass grafting, chronic diastolic heart failure, peripheral arterial disease with a previous stent placement, hypertension, hypercholesterolemia, morbid obesity, severe pulmonary hypertension. CURRENT MEDICATIONS: Multiple, I reviewed the patient's medication list. DRUG ALLERGIES: SULFA AND TAPE. SOCIAL HISTORY: The patient does not smoke. The patient has currently been institutionalized and hospitalized for the past several months given his critical illnesses. FAMILY HISTORY: Not pertinent to current medical condition. REVIEW OF SYSTEMS: CONSTITUTIONAL: The patient complains of generalized weakness, but no isolated weakness to arms or legs. [facility] [address] [place] [address] CONSULTATION Name: ABHIJIT CHOUDHURY PASTOR Room #: 209-P [facility] IN M.R.#: [id number] Admission: 11/26/16 Attend Phys: Luis Espinoza MD Discharge: Date of : 48 Report #: [id number] EYES: No complaints. ENT: No complaints. CARDIAC: The patient had recent pulseless electrical activity arrest, but denies chest pain or palpitations this time. RESPIRATORY: The patient denies shortness breath, cough or wheezes. GASTROINTESTINAL: The patient denies nausea, vomiting, abdominal pain. GENITOURINARY: The patient denies urgency or frequency. MUSCULOSKELETAL: No complaints. SKIN: There is what appears to be contact fuentes to the anterior chest wall where there is chronic ulceration on his left heel, stage II ulcer to his coccyx, and vascular ulcers to the right lateral foot, top of his right foot, left foot and toes. PHYSICAL EXAMINATION: VITAL SIGNS: Stable. The patient is afebrile. GENERAL: This is an alert and oriented x [address], but not time, chronically ill appearing white male who is in mild distress . HEENT: Normocephalic, atraumatic. Mucous membranes are somewhat dry. Pupils are round. Sclerae are white. NECK: Without JVD or masses. LUNGS: Slightly diminished breath sounds heard throughout. HEART: Regular. CHEST: Chest wall reveals multiple superficial blisters in areas of what appeared to be almost fuentes without signs of infection in the shape of a circular pad consistent with the AED pads. ABDOMEN: Soft, nontender. EXTREMITIES: The patient has 1+ edema, lower extremities with distal pulses 1+ heel has an unstageable decubitus ulcer with 100% slough. There are also vascular ulcers with eschar on the dorsal aspect of the left foot and left toes. On the right lateral foot is a vascular ulcer with eschar without signs of infection on either foot or toes. On the sacrococcygeal region, there is superficial stage 2 ulceration without signs of infection. It is clean and granulating. NEUROLOGIC: Cranial nerves 2-12 are grossly intact. Motor and sensory grossly intact. LABORATORY VALUES: White count 6.5, hemoglobin 8.4. Albumin low at 2.0. IMPRESSION: 1. Unstageable decubitus ulcer, left heel -- chronic -- present on admission. 2. Multiple vascular ulcerations on bilateral foot and toes -- chronic -- present on admission. 3. Severe protein calorie malnutrition with albumin of 2.0. 4. Pulseless electrical activity with respiratory and cardiac arrest. 5. Morbid obesity. 6. Severe pulmonary hypertension. [facility] [address] [place] [address] CONSULTATION Name: ABHIJIT CHOUDHURY Room #: 209-P ADM IN M.R.#: [id number] Admission: 11/26/16 Attend Phys: Luis Espinoza MD Discharge: Date of : 48 Report #: [id number] 7. Diabetes mellitus. PLAN: At this time, we used Betadine to all the vascular ulcers on the foot and toes. We will use Silvadene and morphine to the sacrococcygeal ulcer, place this 2-3 times daily. The patient will be placed in a low air loss mattress, be turned every 2 hours. The patient will have the left heel cleansed daily with TheraHoney placed over the wound bed, cover with an Optifoam and change this Tuesday, Tuesday and Tuesday. Make sure we maximize the patient's oral supplementation of protein for healing and we will continue to follow the patient. By: 1751 19 Romeo Aguilar MD /nt
--- NOTE | ~2016-11-26 | HC ---
[facility] [place] [address] CONSULTATION Name: ABHIJIT CHOUDHURY Room #: 237-P ADM IN M.R.#: [id number] Admission: 11/26/16 Attend Phys: Luis Espinoza MD Discharge: Date of : 48 Report #: [id number] THIS REPORT FOR: //name// CC: Alecia Espinoza PRIMARY CARE PHYSICIAN: Dr. Theodore Ochoa. REFERRING PHYSICIAN: Dr. Espinoza. REASON FOR REFERRAL: Acute respiratory failure. HISTORY OF PRESENT ILLNESS: The patient is a 66-year-old white male who was again brought to the Emergency Room after an apparent cardiac arrest. A pulmonary consultation was requested. The patient is known to this physician from recent hospitalization dating back to September 2016, who was most recently dismissed from the hospital in November 2016 for pneumonia, heart failure. The patient was in his usual state of health until yesterday. He was undergoing dialysis yesterday. At the end of the dialysis, the patient became hypotensive and lost his consciousness. CPR was provided. The patient was transferred to the [facility] Emergency Room. The patient was shocked once when he was found to be in PA upon arrival to the Emergency Room. He was given epinephrine on two occasions. Shortly thereafter, the patient had a return of his pulse. The patient remains intubated, arousable, requiring sedation. This would be patient's fourth episode of cardiac arrest, at each episode he was found to be in pulseless electrical activity. In the past, he was also found to like in profound bradycardic arrest. Cause of some of the arrest was felt to be related to hypoxia, presumably related to his sleep apnea. The patient has underlying coronary artery disease. PAST MEDICAL HISTORY: As mentioned above, multiple complex medical problems including coronary artery disease, coronary bypass surgery, peripheral artery disease, underwent multiple partial toe amputations for chronic foot ulcers, severe pulmonary hypertension, recent echocardiogram showed a pulmonary artery pressure measuring around 88 mmHg, NOAH on CPAP, though he is not quite compliant, chronic diastolic heart failure, longstanding history of diabetes mellitus type 2, morbid obesity, diabetic retinopathy, diabetic nephropathy, past history of positive PPD skin test many years ago, treatment status unknown, ischemic cardiomyopathy with ejection fraction of 45%, Barrette's esophagus, chronic kidney disease stage IV, diabetic neuropathy. PAST SURGICAL HISTORY: As mentioned above. He also had an appendectomy, right toe amputation #3, 4, 5, bilateral cataract surgery. [facility] [address] [place] [address] CONSULTATION Name: ABHIJIT CHOUDHURY Room #: 237-P [facility] IN .R.#: [id number] Admission: 11/26/16 Attend Phys: Luis Espinoza MD Discharge: Date of : 48 Report #: [id number] ALLERGIES: SULFA, reactions unspecified. FAMILY HISTORY: Noncontributory. SOCIAL HISTORY: The patient is . The patient had been living with his until his recent hospitalization where [facility]. REVIEW OF SYSTEMS: Deferred as the patient is intubated. It is notable for multiple hospitalizations over the past few years. PHYSICAL EXAMINATION: GENERAL: He is sedated, in no apparent distress. VITAL SIGNS: Temperature is 97.4 degrees Fahrenheit, pulse is 70, respiratory rate is 16, blood pressure is 126/51 mmHg, saturation is 100%. HEENT: Normocephalic, atraumatic. NECK: Supple, without any lymphadenopathy or thyromegaly. CHEST: Breath sounds are fair. Coarse breath sounds, otherwise no wheezes. CARDIOVASCULAR: Normal S1, S2. No murmurs or gallop. There is no JVD. There is no carotid bruit. Pulses are 2+/4+ bilaterally. ABDOMEN: Obese, soft, nontender, no organomegaly or masses felt. GENITOURINARY AND RECTAL: Deferred. EXTREMITIES: There is no cyanosis or clubbing, but remarkable for 2+/4+ bilateral pretibial edema. LABORATORY DATA: Repeat echocardiogram performed earlier today showed ejection fraction being normal, with normal left ventricular systolic function, inferior vena cava is dilated. Pulmonary artery systolic pressure was not adequately measured. Portable chest x-ray shows small right-sided pleural effusion, cardiomegaly, pulmonary vascular congestion, ET tube is in the appropriate position. CT head shows moderate atrophy, white matter ischemic changes; otherwise, no acute findings. Sodium 134, potassium 4.0, chloride 101, CO2 of 26, BUN is 17, creatinine is 2.6. His baseline creatinine is around 2.7 to 3.5. Arterial blood gas revealed pH 7.46, pCO2 of 34, pO2 of 77 on FIO2 of 40%. Albumin is 2.0. Hemoglobin is 9.0, WBC is 24,000, with significant bandemia. IMPRESSION: 1. Status post cardiac arrest, pulseless electrical activity, this is the fourth recurrence over the past few months. Etiology is unclear, but suspected to be multifactorial. The current event occurred at the end of dialysis, blood pressure became hypotensive and lost consciousness. Possible causes include severe pulmonary hypertension, pulmonary impairment along with underlying [facility] [address] [place] [address] CONSULTATION Name: ABHIJIT COHUDHURY Room #: 237-P [facility] IN M.R.#: [id number] Admission: 11/26/16 Attend Phys: Luis Espinoza MD Discharge: Date of : 48 Report #: [id number] cardiac pathology. 2. Acute hypoxic respiratory failure. 3. Obstructive sleep apnea, not sure if the patient is compliant with the use of CPAP at home. 4. Pulmonary hypertension, severe, multifactorial including pulmonary disease. 5. Coronary artery disease with past history of coronary bypass surgery. 6. Severe peripheral vascular disease. 7. End-stage renal failure disease, undergoing hemodialysis. 8. Diabetes mellitus type 2 with multiple end-organ damage, including retinopathy, neuropathy, nephropathy. 9. Leukocytosis and bandemia, will need to rule out infectious source including possible pneumonia. The patient has underlying history of osteomyelitis. 10. Chronic right-sided pleural effusion. 11. Severe protein calorie malnutrition. 12. Obesity. RECOMMENDATIONS: We will continue mechanical ventilation. We will wean once stable. We will stop broad spectrum antibiotics, thibodeaux culture. DVT and GI prophylaxis will be addressed. With his recurrence of his cardiac arrest, we may need to be address whether or not we can pursue workup for his pulmonary hypertension including right-sided cardiac catheterization along with vasodilator study. With this immobility, referral to a tertiary pulmonary hypertension clinic will be nearly impossible. We will continue to explore options. Thank you for this consultation. <ELECTRONICALLY SIGNED> By: Scott Castillo MD 11/28/16 1632 [id number] Scott Castillo MD /nt
--- NOTE | ~2016-11-26 | HC ---
[facility] [place] [address] CONSULTATION Name: ABHIJIT CHOUDHURY Room #: 209-P [facility] IN M.R.#: [id number] Admission: 11/26/16 Attend Phys: Luis Espinoza MD Discharge: Date of : 48 Report #: [id number] THIS REPORT FOR: //name// CC: Alecia Espinoza DATE OF SERVICE: 11/28/2016 INFECTIOUS DISEASE CONSULTATION ATTENDING PHYSICIAN: Luis Espinoza MD. REASON FOR CONSULTATION: Low grade fever, antibiotic management. HISTORY OF PRESENT ILLNESS: The patient is a 66-year-old white man, who suffered cardiorespiratory arrest. He is on chronic hemodialysis and appears is suffering arrest at the end of dialysis. Previous episode of IDs noted. The patient now in the intensive care unit, has been running low grade fevers and on account of these, I am asked to see the patient. The patient alert, comfortable, wants to be extubated if at all possible. DRUG ALLERGIES: SULFA. MEDICATIONS: The patient is on treatment with oral vancomycin 125 orogastric tube q.i.d., atorvastatin, Atrovent, albuterol inhalation treatments, Zosyn 2.25 grams IV every 6 hours, carvedilol, insulin lispro, p.r.n. glucose, glucagon, enoxaparin, fentanyl p.r.n. PAST MEDICAL HISTORY: 1. Chronic renal failure, on hemodialysis. 2. Diabetes mellitus. 3. Obstructive sleep apnea. 4. Coronary artery disease. Previous coronary artery bypass grafting. 5. Peripheral vascular disease requiring multiple surgical interventions to feet. The patient has undergone amputation of the left second toe previously. He also has required amputation of the right third, fourth and fifth toes. Previous heel osteomyelitis. 6. Angel's esophagus. REVIEW OF SYSTEMS: Unable to obtain. FAMILY HISTORY: See H and P old records. SOCIAL HISTORY: See H and P old records. PHYSICAL EXAMINATION: [facility] [address] [place] [address] CONSULTATION Name: ABHIJIT CHOUDHURY Room #: 209-P [facility] IN [facility].#: [id number] Admission: 11/26/16 Attend Phys: Luis Espinoza MD Discharge: Date of : 48 Report #: [id number] GENERAL: Chronically ill-appearing white man in the intensive care unit on mechanical ventilator, sedation off and alert, comfortable, requesting extubation. VITAL SIGNS: Temperature 100.5, pulse 85, respirations 22, BP 146/51, intake 2417, output 100 mL. The patient is on mechanical ventilator, FiO2 30% and saturations 99%. HEENMT: Head normocephalic, atraumatic. Pupils reactive. Mouth, unable to examine. NECK: Supple. LUNGS: Clear. HEART: S1, S2. ABDOMEN: Soft, no masses or megaly. EXTREMITIES: Chronic atrophic changes interosseous muscles of hands. He is status post amputation, left second, third, fourth and fifth toes. NEUROLOGIC: Grossly within normal limits. LABORATORY DATA: MRSA screen positive, sodium 136, potassium 5.3, BUN 23, creatinine 3.4, glucose 206, albumin 1.9 g/dL. NT-proBNP elevated. White blood cell count on admission 24,000 and white blood cell count is 15,400 today, hemoglobin 8.5 g/dL, platelets 209,000. The MRSA screen positive as previously dictated. The urinalysis revealed proteinuria, trace ketones, positive bilirubin, 3+ blood. ABGs obtained yesterday revealed pH 7.41, pCO2 of 35, pO2 79, bicarbonate 22.5. Lactate 0.97. These set of gases is on FiO2 of 30%, 5 of PEEP and tidal volume 550. MICROBIOLOGY DATA: Urine culture obtained yesterday revealed greater than 100,000 colonies of Staphylococcus aureus and 15,000 colonies of Enterococcus species, sensitivities are pending. Blood cultures negative so far. Sputum Gram stain revealed moderate WBCs, many mixed betty and cultures are pending. Radiology evaluation, portable chest x-ray revealed small right pleural effusion, right lower lobe infiltrate. ASSESSMENT: 1. Low-grade fever. 2. Leukocytosis, improving. 3. Respiratory failure, mechanical ventilator dependent. 4. Possible aspiration pneumonia. 5. Status post cardiac arrest. 6. Diabetes mellitus. 7. End-stage renal disease, on hemodialysis. 8. Positive methicillin-resistant Staphylococcus aureus screen. 9. Peripheral vascular disease, status post toe amputation. SUGGESTIONS: Recommend: While awaiting sensitivity of urine culture result, we will add and give single dose of vancomycin 1250 mg IV today. We will continue [address] [address] CONSULTATION Name: MACEYABHIJIT BAUMANN Room #: 209-P ADM IN M.R.#: [id number] Admission: 11/26/16 Attend Phys: Luis Espinoza MD Discharge: Date of : 48 Report #: [id number] Zosyn for aspiration pneumonia. I agree with oral vancomycin for possible C. difficile colitis. We will streamline antibiotic regimen once culture results available. Dr. Espinoza, thank you for requesting my suggestions in the care of your patient. <ELECTRONICALLY SIGNED> By: Finesse Pickett MD 12/01/16 1122 [id number] [id number] Finesse Pickett MD /nt
--- NOTE | ~2016-11-26 | HC ---
[facility] [place] [address] CONSULTATION Name: ABHIJIT CHOUDHURY Room #: 209-P [facility] IN M.R.#: [id number] Admission: 11/26/16 Attend Phys: Luis Espinoza MD Discharge: Date of : 48 Report #: [id number] THIS REPORT FOR: //name// CC: Alecia Espinoza REASON FOR CONSULTATION: PEA arrest. HISTORY OF PRESENT ILLNESS: The patient is a 66-year-old with history of coronary artery disease, diastolic heart failure, severe pulmonary hypertension, PA pressures of 88 mmHg, who is currently on dialysis. I have been asked to see him because the patient has had multiple recent cardiac arrests with the presenting rhythm being pulseless electrical activity. The initial episode was shortly after the patient underwent arteriogram of his leg, at which time it was documented on telemetry that there is no significant arrhythmias associated with his PEA and he was found to be hypotensive and was appropriately treated. He had 2 other similar episodes both demonstrated pulseless electrical activity, which responded to both CPR and epinephrine. Again, the patient was readmitted here recently after he was undergoing dialysis, became hypotensive and again there was PEA. He received CPR, was coded and eventually his pulse returned again. I do not have any strips from this episode. The patient currently denies any chest pain. His shortness of breath is stable. He denies PND or orthopnea. REVIEW OF SYSTEMS: A 12-point review of systems was performed and was negative other than what I mentioned above. PAST MEDICAL HISTORY: Includes, 1. PEA arrest times 4. 2. Severe pulmonary hypertension, PA pressures of 88 mmHg. 3. Diastolic heart failure, EF of 55%. 4. Coronary artery disease, status post CABG. 5. Peripheral vascular disease. 6. Diabetes. 7. Hypertension. 8. Obstructive sleep apnea. 9. Chronic renal insufficiency. 10. Osteomyelitis. 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 FAMILY HISTORY: No premature CAD. ALLERGIES: Include TAPE and SULFA. MEDICATIONS: Have been reviewed. [facility] [address] [place] [address] CONSULTATION Name: ABHIJIT CHOUDHURY PASTOR Room #: 209[facility] IN .R.#: [id number] Admission: 11/26/16 Attend Phys: Luis Espinoza MD Discharge: Date of : 48 Report #: [id number] PHYSICAL EXAMINATION: VITAL SIGNS: Temperature is 36.9, pulse 76, respiration 16, blood pressure 184/86, sats 96%. GENERAL: He is in no acute distress. HEENT: Oropharynx is clear. NECK: Supple. HEART: Regular rate and rhythm with no murmurs, rubs, gallops. LUNGS: Clear to auscultation anteriorly. ABDOMEN: Soft, nontender, nondistended with no hepatosplenomegaly. EXTREMITIES: There is no clubbing. There are decreased pedal pulses. He does have some redness on both shins, but this is probably chronic. He does have the ulcerations and nonhealing wound of the feet. NEUROLOGIC: His cranial nerves 2-12 are intact. IMAGING DATA: His 12-lead EKG shows sinus rhythm with a right bundle branch block. His echocardiogram on 11/27/2016 shows normal EF and severe pulmonary hypertension. His telemetry shows no arrhythmias. LABORATORY DATA: White count 7.6, hemoglobin 7.7, platelets 175. A pH 7.3, pCO2 of 37, pO2 109. Coags: INR is 1.2. Chemistry: Sodium 136, potassium 3.5, BUN 15, creatinine 2.1. ASSESSMENT AND PLAN: In summary, the patient is a 66-year-old with recurrent episodes of pulseless electrical activity. These are not caused by any underlying arrhythmia, but appeared to be due to episodes of profound hypotension, which may be due to his severe pulmonary hypertension and perhaps a component of autonomic dysfunction in the setting of rapid volume changes. A pacemaker would not help in this setting if there is no significant bradycardia noted. Furthermore, the patient meets no clinical criteria for ICD implantation if there are no primary ventricular arrhythmias that precipitate these episodes. As such, I recommend continuing with current management, meticulous care of his blood pressure and volume status. Perhaps a right-sided heart catheterization would be in order if he is going to undergo diagnostic cardiac catheterization to further evaluate his PA pressures. As such, dialysis maybe challenging if he does have severe pulmonary hypertension. Thank you for allowing me to participate in his care. <ELECTRONICALLY SIGNED> By: Cesario Pickett MD 12/06/16 0830 [id number] [id number] Cesario Pickett MD /nt
--- NOTE | ~2016-11-26 | 2DMMODE ---
[facility] [address] [facility] [place] [address] 2 D/M-MODE ECHOCARDIOGRAM Name: ABHIJIT CHOUDHURY Room #: 237-P ADM IN M.R.#: [id number] Admission: 11/26/16 Attend Phys: Jennie Schwarz Discharge: Date of : 46 Date of Service: 11/27/16 1153 Report #: [id number] THIS REPORT FOR: //name// APPROVED REPORT Study performed: 11/27/2016 09:37:11 EXAM: Comprehensive 2D, Doppler, and color-flow Echocardiogram Patient Location: Bedside Room #: 237 Status: on-call Other Information Study Quality: Fair Indications Congestive Heart Failure Diabetes CAD 2D Dimensions LVEF(%): 41.17 (>50%) IVSd: 12.10 (7-11mm) LVOT Diam: 20.00 (18-24mm) LVDd: 52.57 mm PWd: 8.78 (7-11mm) Ascending Ao: 27.33 (22-36mm) LVDs: 41.90 (25-40mm) Aortic Root: 27.18 mm Holden's LVEF: 41.17 % Volumes Left Atrial Volume (Systole) Single Plane 4CH: 46.28 mL Single Plane 2CH: 55.54 mL LA ESV Index: 24.00 mL/m2 Aortic Valve AoV Peak Petr.: 1.15 m/s AO Peak Gr.: 5.87 mmHg LVOT Max P.50 mmHg LVOT Max V: 0.61 m/s KHANH Vmax: 1.64 cm2 Mitral Valve E/A Ratio: 0.9 MV Decel. Time: 186.96 ms MV E Max Petr.: 0.65 m/s MV A Petr.: 0.73 m/s [facility] [address] [place] [address] 2 D/M-MODE ECHOCARDIOGRAM Name: MACEYABHIJIT SKAMOKAWA Room #: 237-[facility] IN ..#: [id number] Admission: 11/26/16 Attend Phys: Jennie Schwarz Discharge: Date of : 46 Date of Service: 11/27/16 1153 Report #: [id number] MV PHT: 54.22 ms IVRT: 73.82 ms Pulmonary Valve PV Peak Petr.: 0.91 m/s PV Peak Gr.: 3.33 mmHg Tricuspid Valve TR Peak Petr.: 1.92 m/s TR Peak Gr.: 14.81 mmHg Left Ventricle The left ventricle is normal size. Regional wall motion is not well visualized but grossly normal. Borderline concentric left ventricular hypertrophy. Left ventricular systolic function is normal. The left ventricular ejection fraction is within the normal range. Grade I - abnormal relaxation pattern. Right Ventricle The right ventricle is normal size. The right ventricular systolic function is normal. Atria The left atrium size is normal. The right atrium size is normal. Aortic Valve The aortic valve is normal in structure. No aortic regurgitation is present. There is no aortic valvular stenosis. Mitral Valve The mitral valve is normal in structure. Mild mitral regurgitation. No evidence of mitral valve stenosis. Tricuspid Valve The tricuspid valve is normal in structure. Trace tricuspid regurgitation. Pulmonic Valve The pulmonary valve is normal in structure. There is no pulmonic valvular regurgitation. Great Vessels The aortic root is normal in size. IVC is dilated and collapses <50% with inspiration. Pt. is on ventilator. Pericardium [facility] [address] [place] [address] 2 D/M-MODE ECHOCARDIOGRAM Name: ABHIJIT CHOUDHURY Room #: 237-P ADM IN M.R.#: [id number] Admission: 11/26/16 Attend Phys: Jennie Schwarz Discharge: Date of : 46 Date of Service: 11/27/16 1153 Report #: [id number] There is no pericardial effusion. <Conclusion> Left ventricular systolic function is normal. Regional wall motion is not well visualized but grossly normal. Discordant septal motion The aortic valve is normal in structure. No aortic regurgitation or stenosis The mitral valve is normal in structure. Mild mitral regurgitation. IVC is dilated. Pulmonary artery pressure could not be reliably ascertained There is no pericardial effusion. Similar to 09/21/2016 <ELECTRONICALLY SIGNED> By: Ruiz Dominguez MD, [facility] 11/27/16 1153 1153 1153 Ruiz Dominguez MD, [facility] /INF
--- NOTE | ~2016-11-26 | EKG ---
[address] [place] [address] ELECTROCARDIOGRAM REPORT Name: ABHIJIT CHOUDHURY Room #: 237-P ADM IN M.R.#: [id number] Admission: 11/26/16 Attend Phys: Luis Espinoza MD Discharge: Date of : 46 Report #: [id number] THIS REPORT FOR: //name// [facility] ED Test Date: 2016-11-26 Test Time: 18:00:29 Pat Name: ABHIJIT CHOUDHURY Department: Room: 237 P Gender: M [employer] Collect[employer]: PAGE : 1950 Requested By: Colt Gomez Order Number: [id number] MD: Ruiz Dominguez Measurements Intervals [place] Rate: 85 P: 60 NM: 222 QRS: 102 QRSD: 184 T: 2 QT: 425 QTc: 506 Interpretive Statements Probable Sinus rhythm Multiple ventricular premature complexes Prolonged NM interval RBBB and LPFB Compared to ECG 11/19/2016 12:19:38 Ventricular premature complex(es) now present Electronically Signed On 11-28-2016 13:51:40 CDT by Ruiz Dominguez [email or web address] <ELECTRONICALLY SIGNED> By: Ruiz Dominguez MD, [facility] 11/28/16 1351 1800 1800 Ruiz Dominguez MD, [facility] /EPI
--- NOTE | ~2016-11-26 | HC ---
[facility] [place] [address] [place] [address] CONSULTATION Name: ABHIJIT CHOUDHURY Room #: 237-P [facility] IN M.R.#: [id number] Admission: 11/26/16 Attend Phys: Luis Espinoza MD Discharge: Date of : 46 Report #: [id number] THIS REPORT FOR: //name// CC: [facility] Alecia Espinoza [place] DATE OF CONSULTATION: 11/27/2016. REASON FOR CONSULTATION: End-stage renal disease. HISTORY OF PRESENT ILLNESS: This 66-year-old male was well-known to our group. He has been followed for many years with progressive renal insufficiency. He initiated dialysis about approximately 3 months ago. He has had a storming course since that time. He has been hospitalized at [facility] [place], [facility], [facility] and most recently living at [facility]. He is dialyzing 3 times weekly, at [place] in the [facility] facility. The patient's father has been on hospice care and late this past week. He attended his father on the day of admission in the a.m. He reportedly was in good spirits at that time and showing no distress. He returned to [facility] and was undergoing hemodialysis on the afternoon when at the conclusion of an uneventful treatment he suddenly dropped his blood pressure and suffered cardiac arrest requiring CPR initiation. He was successfully resuscitated and transported to the [facility] [place] Emergency Room and subsequently admitted to the intensive care unit on mechanical ventilation. He is seen this a.m. in a sedated stated on the ventilator. His is at the bedside. She provides some of the prehospitalization history. She is deeply concerned that is his fourth cardiac arrest. PAST MEDICAL HISTORY: Otherwise remarkable for longstanding diabetes mellitus, obstructive sleep apnea, coronary artery disease status post previous coronary artery bypass surgery. His other history includes peripheral vascular disease status post previous amputation, cardiomyopathy, appendectomy, left heel osteomyelitis., Angel's esophagus. MEDICATIONS: On admission to the hospital include amlodipine 5 mg daily, aspirin 81 mg daily, magnesium oxide 400 mg b.i.d., Colace 100 mg daily, Nitrostat cream as needed, vancomycin 125 mg q.i.d., DuoNeb inhalation, Plavix 75 mg daily, atorvastatin 40 mg at bedtime, hydrocodone 5/325 q. 4 hours p.r.n., guaifenesin, acetaminophen, scopolamine patch, Protonix 40 mg daily, furosemide 40 mg b.i.d., tamsulosin 0.[address] [address] CONSULTATION Name: ABHIJIT CHOUDHURY Room #: 237-P ADM IN M.R.#: [id number] Admission: 11/26/16 Attend Phys: Luis Espinoza MD Discharge: Date of : 46 Report #: [id number] ALLERGIES: REPORTED TO SULFA AND TAPE. PERSONAL AND SOCIAL HISTORY: The patient does not smoke, use alcohol or have any history of substance abuse. FAMILY HISTORY AND REVIEW OF SYSTEMS: Not obtainable from this intubated patient. PHYSICAL EXAMINATION: GENERAL: Reveals a well-developed, well-nourished and chronically ill-appearing male who is mechanically ventilated and deeply sedated at this time. VITAL SIGNS: Blood pressure 126/51, temperature 97.4, pulse 70, respirations 16. SKIN: Warm and dry. There is good distal perfusion. There is no evidence of cellulitis or ischemia. HEENT: The head is normocephalic and atraumatic. There is an NG tube and endotracheal tube in place. NECK: Supple. LUNGS: Montez reveal scattered rhonchi bilaterally. CARDIOVASCULAR: Reveals a regular rate and rhythm without rub. ABDOMEN: Soft and nontender, without palpable mass or organomegaly. NEUROLOGIC: Reveals the patient to be sedated. He is observed to move all extremities. His gag is intact. LABORATORY STUDIES: Available at this time, sodium 134, potassium 4.0, chloride 101, CO2 26, BUN 17, creatinine 2.6, glucose 190. White blood cell count 13,700, hemoglobin 9.0, hematocrit 27.9, platelet count 248,000. Arterial blood gases pH 7.46, pCO2 of 34, pO2 of 77.3 on 40% FiO2. ASSESSMENT: 1. Status post witnessed cardiac arrest post-successful resuscitation, this is his fourth such occurrence. 2. End-stage renal disease, on maintenance hemodialysis. 3. Diabetes mellitus. 4. Obstructive sleep apnea on CPAP therapy. 5. Coronary artery disease with cardiomyopathy. PLAN: We will provide supportive care for the patient and follow him on a daily basis. I anticipate him needing dialysis again on Tuesday, but we will assess him on a daily basis in the interim. We may need to gives consideration the placement of an AICD given his recurrent cardiac arrest. Please see orders. <ELECTRONICALLY SIGNED> By: Glen Bell MD 11/28/16 0719 0914 1314 Glen Bell MD /nt
--- NOTE | ~2016-11-26 | CATHLAB ---
[facility] [place] [address] [place] [address] INVASIVE PROCEDURE REPORT Name: ABHIJIT CHOUDHURY Room #: 209-P ADM IN M.R.#: [id number] Admission: 11/26/16 Attend Phys: Jennie Schwarz Discharge: Date of : 46 Date of Service: 12/02/16 0832 Report #: [id number] THIS REPORT FOR: //name// CC: Alecia Espinoza PROCEDURE: Lt and right heart catheterization, coronary angiography, vein graft imaging. INDICATIONS: Coronary artery disease, status post arrest, pulmonary hypertension, and shortness of breath. DESCRIPTION OF PROCEDURE: The potential benefits and risks of the procedure were discussed at length with the patient who understood. Full written and informed consent was obtained. The patient was brought into the catheterization suite, where his right groin was prepped and draped in a sterile fashion. He was sedated with intravenous Versed. 1% Xylocaine was used as local anesthetic. A 6-Dutch sheath was placed in the right femoral artery by the modified Seldinger technique. A 7-Dutch sheath was placed in the right femoral vein by the modified Seldinger technique. A right heart catheterization was performed with a [place]-Trung catheter, which was floated under fluoroscopic guidance into the main pulmonary artery. Thermodilution cardiac outputs were obtained. Left heart catheterization was performed with a Suzi right 4 cm coronary catheter. Ventriculography was not performed. Selective coronary angiography was performed with a 6-Dutch left and right 4 cm Suzi coronary catheter. The vein graft to the right coronary was imaged with a Suzi right 4 cm coronary catheter, and the vein graft to the marginal branch was imaged with a LCB catheter. All catheters were removed. A hand injection was performed through the right groin sheath with placement of a Mynx device upon removal of the sheath. The right venous sheath was removed and manual pressure was applied. The patient remained in stable condition following the procedure and was transported back to his hospital room. RESULTS: LEFT HEART HEMODYNAMICS: Left ventricular end diastolic pressure of 20. Left ventricular systolic pressure of 170. RIGHT HEART HEMODYNAMICS: Right atrial pressure of 12. Right ventricular pressure of 58/13, pulmonary artery pressure of 57/22, wedge pressure of 14. Cardiac output 5.6. SELECTIVE CORONARY ANGIOGRAPHY: 1. Left main: The left main was normal. 2. Left anterior descending: The left anterior descending was a moderate sized vessel, that was diffusely diseased throughout its course, although high grade stenoses were absent. There was a remaining vein graft segment from the distal LAD to a high diagonal branch. This looks like a sequential vessel that was [facility] [address] [place] [address] INVASIVE PROCEDURE REPORT Name: ABHIJIT CHOUDHURY Room #: 209-P [facility] IN M.R.#: [id number] Admission: 11/26/16 Attend Phys: Jennie Schwarz Discharge: Date of : 46 Date of Service: 12/02/16 0832 Report #: [id number] occluded at the aorta, and this remaining jump sequence was patent. Circumflex was occluded in its proximal portion. The right coronary was subtotally occluded, and probably the dominant vessel. 3. VEIN GRAFT IMAGING: There was a patent vein graft to the right coronary. Both proximal and distal anastomotic sites were widely patent. There was mild plaquing throughout the body of the vein graft. The right coronary itself was moderate in size and free of severe occlusive disease. There was diffuse moderate atherosclerosis throughout the vessel. 4. Vein graft to the marginal branch was widely patent. Proximal anastomotic site was widely patent. The distal anastomotic site, just beyond the distal anastomotic site, it was a severe 95% stenosis at a bifurcating distal marginal branch. This vessel was relatively small in caliber and distribution and would not have been amenable to percutaneous intervention. SUMMARY: 1. Moderately severe pulmonary hypertension; normal wedge pressure. 2. Normal left main. 3. Severe multivessel coronary disease. 4. Patent vein graft segment from distal LAD to diagonal, moderate plaquing throughout the LAD; chronically occluded segement from aorta 5. Patent vein graft to the distal right coronary. 6. Patent vein graft to the marginal branch with diffuse small vessel disease, beyond this marginal branch graft, not amenable to intervention. <ELECTRONICALLY SIGNED> By: Ruiz Dominguez MD, [facility] 12/04/16 1630 0832 26 Ruiz Dominguez MD, [facility] /nt
[~2016-11-26 17:57] MED LIST changes: +ADULT TUSS100 MG/5 M PER TUBE; +ATORVASTATIN CA80 MG PO; +CLOPIDOGREL75 MG PO; +DUONEB 2.5-0.5 M3 ML INH; +HYDROCODON-ACE1 EAC7 PO; +LASIX 40 MG TAB40 M2 PO; +ONDANSETRON HCL4 M1 IV PUSH; +PEDIA-LAX50 MG/15 M PO; +PROTONIX40 M1 PO; +TRANSDERM-SCO1 PATC1 TRANSDERM; +VANCOMYCIN100 MG/ML PO
[2016-11-26 18:30] LABS: ABG SAMPLE TYPE ARTERIAL; BE(vivo) -5.1 mmol/L (-2 to +3); HCO3 20.8 mmol/L (22.0-26.0); LACTATE 6.45 mmol/L (0.5-2.0); O2(CT) 16.8 mL/dL (15.0-23.0); O2Hb 98.7 % (92.0-98.0); PCO2 41.9 mmHg (35.0-45.0); PO2 384.4 mmHg (80.0-100.0); STICK SITE R.BRACHIAL; pH 7.314 (7.360-7.450); sO2 99.8 % (92.0-98.0); tCO2 22.1 mmol/L (24.0-30.0)
[2016-11-26 18:32] LABS: TIDAL VOLUME 650 ml
[2016-11-26 19:25] LABS: HEMOGLOBIN 8.8 gm/dL (14.0-18.0); MCH 25.5 pg (26.0-34.0); MCHC 30.4 g/dL (28.0-37.0); MCV 83.9 fL (80.0-100.0); PLATELET COUNT 276 thou/uL (150-400); RBC 3.46 mil/uL (4.50-6.00); RDW 20.2 % (10.5-14.5)
[2016-11-26 19:28] LABS: MANUAL DIFF YES
[2016-11-26 19:35] LABS: ANION GAP 10 mmol/L (7-16); BUN 11 mg/dL (7-18); CALCIUM 7.4 mg/dL (8.5-10.1); CHLORIDE 101 mmol/L (98-107); CO2 23 mmol/L (21-32); CREATININE 2.2 mg/dL (0.7-1.3); GLUCOSE 367 mg/dL (74-106); SODIUM 134 mmol/L (136-145)
[2016-11-26 19:45] LABS: APTT 33.7 Seconds (24.5-32.8); FIBRINOGEN 348.5 mg/dL (210-360); INR 1.2; PROTIME 12.4 Seconds (9.3-11.4)
[2016-11-26 19:47] LABS: MAGNESIUM 1.7 mg/dL (1.8-2.4); NT-PRO BRAIN NAT PEPTIDE 8384 pg/mL (<300); PHOSPHORUS 3.7 mg/dL (2.5-4.9); TROPONIN-I < 0.04 ng/mL (<0.04-0.07)
[2016-11-26 19:49] LABS: ABSOLUTE NEUTROPHILS 22.3 thou/uL (1.4-8.2); METAMYELOCYTES 1 %; TOTAL CELL COUNT 100
[2016-11-26 19:50] LABS: POLYCHROMASIA 1+
[2016-11-26 22:56] LABS: ABG SAMPLE TYPE ARTERIAL; BE(vivo) 0.6 mmol/L (-2 to +3); HCO3 24.1 mmol/L (22.0-26.0); LACTATE 1.27 mmol/L (0.5-2.0); O2Hb 95.5 % (92.0-98.0); PCO2 34.2 mmHg (35.0-45.0); PO2 77.3 mmHg (80.0-100.0); STICK SITE R.RADIAL; pH 7.465 (7.360-7.450); sO2 96.2 % (92.0-98.0); tCO2 25.1 mmol/L (24.0-30.0)
[2016-11-26 22:57] LABS: TIDAL VOLUME 650 ml
[2016-11-27] VITALS (68 sets, daily range): BP systolic 90–146; BP diastolic 47–108
[2016-11-27 05:25] LABS: HEMATOCRIT 27.9 % (42.0-52.0); MCH 25.8 pg (26.0-34.0); MCHC 32.1 g/dL (28.0-37.0); MCV 80.4 fL (80.0-100.0); RBC 3.48 mil/uL (4.50-6.00); RDW 20.3 % (10.5-14.5); WBC 13.7 thou/uL (4.0-11.0)
[2016-11-27 05:42] LABS: CALCIUM 7.8 mg/dL (8.5-10.1); CREATININE 2.6 mg/dL (0.7-1.3); TOTAL BILIRUBIN 0.4 mg/dL (<0.1-1.0); TOTAL PROTEIN 6.3 g/dL (6.4-8.2)
[2016-11-27 16:13] LABS: ABG SAMPLE TYPE ARTERIAL; BE(vivo) -1.7 mmol/L (-2 to +3); HCO3 22.5 mmol/L (22.0-26.0); LACTATE 0.97 mmol/L (0.5-2.0); O2(CT) 12.9 mL/dL (15.0-23.0); O2Hb 94.6 % (92.0-98.0); PCO2 35.5 mmHg (35.0-45.0); PO2 79.3 mmHg (80.0-100.0); pH 7.419 (7.360-7.450); tCO2 23.5 mmol/L (24.0-30.0)
[2016-11-27 16:14] LABS: STICK SITE R.RADIAL; TIDAL VOLUME 550 ml
[2016-11-28] VITALS (32 sets, daily range): BP systolic 131–170; BP diastolic 51–103
[2016-11-28 03:59] LABS: HEMATOCRIT 26.8 % (42.0-52.0); HEMOGLOBIN 8.5 gm/dL (14.0-18.0); MCHC 31.8 g/dL (28.0-37.0); MCV 81.6 fL (80.0-100.0); RBC 3.28 mil/uL (4.50-6.00); RDW 20.2 % (10.5-14.5); WBC 15.4 thou/uL (4.0-11.0)
[2016-11-28 04:12] LABS: ALBUMIN 1.9 g/dL (3.4-5.0); CALCIUM 7.9 mg/dL (8.5-10.1); CREATININE 3.4 mg/dL (0.7-1.3); PHOSPHORUS 3.3 mg/dL (2.5-4.9); POTASSIUM 4.4 mmol/L (3.5-5.1)
[2016-11-28 10:26] LABS: ICTOTEST (BILI CONFIRMATORY) Negative (Negative); URINE BILIRUBIN 1+ (Negative); URINE BLOOD 3+ (Negative); URINE COLOR YELLOW; URINE GLUCOSE-RANDOM* NEGATIVE (Negative); URINE KETONES TRACE (Negative); URINE NITRITE NEGATIVE (Negative); URINE PROTEIN (DIPSTICK) 2+ (Negative); URINE SPECIFIC GRAVITY 1.015 (1.003-1.035); URINE UROBILINOGEN 0.2 E.U./dl (0.2-1.0)
[2016-11-28 10:36] LABS: BACTERIA >30 Many /HPF (None Seen); CASTS None Seen /LPF (None Seen); CRYSTALS None Seen /LPF (None Seen); SQUAMOUS 4-10 Moderate /LPF (0-3); URINE RBC >20 Many /HPF (0-2); URINE WBC >25 Many /HPF (0-5)
[2016-11-28 13:14] LABS: ABG SAMPLE TYPE ARTERIAL; BE(vivo) -1.7 mmol/L (-2 to +3); HCO3 22.9 mmol/L (22.0-26.0); LACTATE 1.08 mmol/L (0.5-2.0); O2(CT) 12.7 mL/dL (15.0-23.0); O2Hb 96.3 % (92.0-98.0); PCO2 38.1 mmHg (35.0-45.0); PO2 94.5 mmHg (80.0-100.0); Pressure Support 5 cm H20; STICK SITE R.RADIAL; pH 7.397 (7.360-7.450); sO2 97.2 % (92.0-98.0); tCO2 24.1 mmol/L (24.0-30.0)
[2016-11-29] VITALS (66 sets, daily range): BP systolic 121–172; BP diastolic 51–132
[2016-11-29 05:29] LABS: HEMATOCRIT 24.3 % (42.0-52.0); HEMOGLOBIN 7.9 gm/dL (14.0-18.0); MCH 26.4 pg (26.0-34.0); MCHC 32.5 g/dL (28.0-37.0); MCV 81.4 fL (80.0-100.0); PLATELET COUNT 187 thou/uL (150-400); RBC 2.98 mil/uL (4.50-6.00); RDW 20.3 % (10.5-14.5); WBC 10.9 thou/uL (4.0-11.0)
[2016-11-29 05:32] LABS: MANUAL DIFF YES
[2016-11-29 05:37] LABS: ABG SAMPLE TYPE ARTERIAL; LACTATE 1.03 mmol/L (0.5-2.0); O2(CT) 13.3 mL/dL (15.0-23.0); O2Hb 96.9 % (92.0-98.0); PCO2 37.8 mmHg (35.0-45.0); PO2 109.5 mmHg (80.0-100.0); pH 7.363 (7.360-7.450); sO2 97.9 % (92.0-98.0); tCO2 22.2 mmol/L (24.0-30.0)
[2016-11-29 05:38] LABS: STICK SITE LRA
[2016-11-29 05:41] LABS: ALBUMIN 1.8 g/dL (3.4-5.0); CALCIUM 7.9 mg/dL (8.5-10.1); CREATININE 3.7 mg/dL (0.7-1.3); MAGNESIUM 1.7 mg/dL (1.8-2.4); PHOSPHORUS 4.8 mg/dL (2.5-4.9); POTASSIUM 4.3 mmol/L (3.5-5.1)
[2016-11-29 09:03] LABS: ABSOLUTE NEUTROPHILS 8.6 thou/uL (1.4-8.2); TOTAL CELL COUNT 100
[2016-11-29 09:05] LABS: ANISOCYTOSIS 2+; MICROCYTES 1+
[2016-11-30] VITALS (39 sets, daily range): BP systolic 104–184; BP diastolic 52–113
[2016-11-30 04:58] LABS: HEMATOCRIT 23.7 % (42.0-52.0); HEMOGLOBIN 7.7 gm/dL (14.0-18.0); MCH 26.3 pg (26.0-34.0); MCHC 32.6 g/dL (28.0-37.0); MCV 80.7 fL (80.0-100.0); RBC 2.94 mil/uL (4.50-6.00); RDW 20.1 % (10.5-14.5); WBC 7.6 thou/uL (4.0-11.0)
[2016-11-30 05:14] LABS: POTASSIUM 3.5 mmol/L (3.5-5.1)
[2016-11-30 05:28] LABS: CREATININE 2.1 mg/dL (0.7-1.3)
[2016-12-01] VITALS: BP 157/71
[2016-12-01 04:11] VITALS: BP 155/41
[2016-12-01 06:05] LABS: HEMATOCRIT 26.5 % (42.0-52.0); HEMOGLOBIN 8.4 gm/dL (14.0-18.0); MCH 25.8 pg (26.0-34.0); MCHC 31.6 g/dL (28.0-37.0); MCV 81.8 fL (80.0-100.0); RBC 3.24 mil/uL (4.50-6.00); RDW 19.2 % (10.5-14.5); WBC 6.5 thou/uL (4.0-11.0)
[2016-12-01 06:25] LABS: CALCIUM 8.1 mg/dL (8.5-10.1); PHOSPHORUS 4.6 mg/dL (2.5-4.9); POTASSIUM 3.6 mmol/L (3.5-5.1)
[2016-12-01 06:27] LABS: CREATININE 3.1 mg/dL (0.7-1.3)
[2016-12-01 08:19] VITALS: BP 145/65
[2016-12-01 16:30] VITALS: BP 169/70
[2016-12-01 20:22] VITALS: BP 126/49
[2016-12-02 03:58] VITALS: BP 150/60
[2016-12-02 04:41] LABS: ABSOLUTE NEUTROPHILS 5.4 thou/uL (1.4-8.2); CREATININE 2.4 mg/dL (0.7-1.3); EOSINOPHILS 3.4 % (0.0-3.0); HEMATOCRIT 25.6 % (42.0-52.0); HEMOGLOBIN 8.3 gm/dL (14.0-18.0); LYMPHOCYTES 9.9 % (24.0-44.0); MCH 26.2 pg (26.0-34.0); MCHC 32.4 g/dL (28.0-37.0); MCV 80.9 fL (80.0-100.0); MONOCYTES 9.3 % (1.0-8.0); PLATELET COUNT 174 thou/uL (150-400); POLYS 76.4 % (36.0-66.0); POTASSIUM 3.8 mmol/L (3.5-5.1); RBC 3.16 mil/uL (4.50-6.00); RDW 19.8 % (10.5-14.5)
[2016-12-02 04:54] LABS: MANUAL DIFF NO
[2016-12-02 10:35] VITALS: BP 128/67
[2016-12-02 15:30] VITALS: BP 148/70
[2016-12-02 20:48] VITALS: BP 134/62
[2016-12-02 21:02] VITALS: BP 134/62
[2016-12-03 00:45] VITALS: BP 176/74
[2016-12-03 05:17] VITALS: BP 186/78
[2016-12-03 05:35] LABS: HEMATOCRIT 25.5 % (42.0-52.0); HEMOGLOBIN 8.2 gm/dL (14.0-18.0); MCHC 32.2 g/dL (28.0-37.0); MCV 80.8 fL (80.0-100.0); PLATELET COUNT 180 thou/uL (150-400); RBC 3.15 mil/uL (4.50-6.00); RDW 19.4 % (10.5-14.5); WBC 7.9 thou/uL (4.0-11.0)
[2016-12-03 05:37] LABS: MANUAL DIFF YES
[2016-12-03 05:45] LABS: CALCIUM 8.2 mg/dL (8.5-10.1); POTASSIUM 3.3 mmol/L (3.5-5.1)
[2016-12-03 06:00] VITALS: BP 148/67
[2016-12-03 06:20] LABS: CREATININE 3.6 mg/dL (0.7-1.3)
[2016-12-03 07:22] LABS: ABSOLUTE NEUTROPHILS 6.6 thou/uL (1.4-8.2); TOTAL CELL COUNT 100
[2016-12-03 07:23] LABS: PLATELET ESTIMATE NORMAL
[2016-12-03 07:25] LABS: ANISOCYTOSIS 1+; TOXIC GRANULATION 1+
[2016-12-03 12:19] VITALS: BP 139/66
[2016-12-03 19:12] VITALS: BP 148/69
[2016-12-04 04:00] VITALS: BP 171/74
[2016-12-04 08:02] VITALS: BP 171/70
[2016-12-04 12:00] VITALS: BP 156/75
[2016-12-04 20:05] VITALS: BP 153/80
[2016-12-05 03:59] VITALS: BP 137/62
[2016-12-05 09:30] VITALS: BP 154/76
[2016-12-05 12:50] VITALS: BP 128/69
[2016-12-05 18:00] VITALS: BP 121/63
[2016-12-05 20:30] VITALS: BP 172/76
[2016-12-05 23:02] VITALS: BP 154/70
[2016-12-06 05:04] VITALS: BP 146/71
[2016-12-06 06:26] LABS: HEMATOCRIT 27.5 % (42.0-52.0); HEMOGLOBIN 8.7 gm/dL (14.0-18.0); MCH 26.2 pg (26.0-34.0); MCHC 31.8 g/dL (28.0-37.0); MCV 82.5 fL (80.0-100.0); PLATELET COUNT 251 thou/uL (150-400); RBC 3.33 mil/uL (4.50-6.00); WBC 10.1 thou/uL (4.0-11.0)
[2016-12-06 06:31] LABS: MANUAL DIFF YES
[2016-12-06 06:37] LABS: ALBUMIN 2.1 g/dL (3.4-5.0); CALCIUM 8.3 mg/dL (8.5-10.1); CREATININE 4.4 mg/dL (0.7-1.3); PHOSPHORUS 4.1 mg/dL (2.5-4.9); POTASSIUM 3.1 mmol/L (3.5-5.1)
[2016-12-06 08:00] VITALS: BP 129/69
[2016-12-06 08:44] LABS: ABSOLUTE NEUTROPHILS 9.1 thou/uL (1.4-8.2); ANISOCYTOSIS 2+; HYPOCHROMASIA 2+; NUCLEATED RBCS 1 /100WBC; PLATELET ESTIMATE NORMAL; TOTAL CELL COUNT 100
[2016-12-06 08:45] LABS: MICROCYTES 2+; TOXIC GRANULATION 1+
[2016-12-06] MEDS ORDERED: HYDROCODON-ACE1 EAC7 PO (09:12)
[2016-12-06] MEDS ORDERED: ACCUPRIL40 MG PO (09:12)
[2016-12-06 11:20] VITALS: BP 113/73
== END 2016-12-06 15:54 | DRG 208 ==
LOC: ER 17:57 → EROBS 18:47 → ICU 18:47 → 2N 11-30 10:37
PROVIDERS: Emergency Medicine; Family Medicine; Internal Medicine Endocrinology, Diabetes & Metabolism; Internal Medicine Nephrology; Internal Medicine Pulmonary Disease
PROC: 5A1945Z Respiratory Ventilation, 24-96 Consecutive Hours (ICD-10-PCS; principal; 2016-11-26)
PROC: 0BH17EZ Insertion of Endotracheal Airway into Trachea, Via Natural or Artificial Opening (ICD-10-PCS; principal; 2016-11-26)
PROC: 02HV33Z Insertion of Infusion Device into Superior Vena Cava, Percutaneous Approach (ICD-10-PCS; 2016-11-26)
PROC: B548ZZA Ultrasonography of Superior Vena Cava, Guidance (ICD-10-PCS; 2016-11-26)
PROC: 5A1D60Z (ICD-10-PCS; 2016-11-29)
PROC: B21F1ZZ Fluoroscopy of Other Bypass Graft using Low Osmolar Contrast (ICD-10-PCS; 2016-12-02)
PROC: 4A023N8 Measurement of Cardiac Sampling and Pressure, Bilateral, Percutaneous Approach (ICD-10-PCS; 2016-12-02)
PROC: B2111ZZ Fluoroscopy of Multiple Coronary Arteries using Low Osmolar Contrast (ICD-10-PCS; 2016-12-02)
DX: J96.21 Acute and chronic respiratory failure with hypoxia (principal); J69.0 Pneumonitis due to inhalation of food and vomit; N18.6 End stage renal disease; E43 Unspecified severe protein-calorie malnutrition; M86.9 Osteomyelitis, unspecified; N39.0 Urinary tract infection, site not specified; J90 Pleural effusion, not elsewhere classified; I13.2 Hypertensive heart and chronic kidney disease with heart failure and with stage 5 chronic kidney disease, or end stage renal disease; I50.32 Chronic diastolic (congestive) heart failure; Z99.11 Dependence on respirator [ventilator] status; E11.319 Type 2 diabetes mellitus with unspecified diabetic retinopathy without macular edema; E11.40 Type 2 diabetes mellitus with diabetic neuropathy, unspecified; E11.51 Type 2 diabetes mellitus with diabetic peripheral angiopathy without gangrene; I25.5 Ischemic cardiomyopathy; I25.10 Atherosclerotic heart disease of native coronary artery without angina pectoris; G47.33 Obstructive sleep apnea (adult) (pediatric); N40.0 Benign prostatic hyperplasia without lower urinary tract symptoms; I27.2 Other secondary pulmonary hypertension; D72.829 Elevated white blood cell count, unspecified; E78.00 Pure hypercholesterolemia, unspecified; E66.01 Morbid (severe) obesity due to excess calories; D63.8 Anemia in other chronic diseases classified elsewhere; E11.69 Type 2 diabetes mellitus with other specified complication; E11.65 Type 2 diabetes mellitus with hyperglycemia; I87.2 Venous insufficiency (chronic) (peripheral); B95.2 Enterococcus as the cause of diseases classified elsewhere; E11.22 Type 2 diabetes mellitus with diabetic chronic kidney disease; L97.509 Non-pressure chronic ulcer of other part of unspecified foot with unspecified severity; K21.9 Gastro-esophageal reflux disease without esophagitis; B96.89 Other specified bacterial agents as the cause of diseases classified elsewhere; J44.9 Chronic obstructive pulmonary disease, unspecified; L89.620 Pressure ulcer of left heel, unstageable; Z79.4 Long term (current) use of insulin; Z90.49 Acquired absence of other specified parts of digestive tract; Z95.1 Presence of aortocoronary bypass graft; Z86.14 Personal history of Methicillin resistant Staphylococcus aureus infection; Z91.19 Patient's noncompliance with other medical treatment and regimen; Z98.42 Cataract extraction status, left eye; Z98.41 Cataract extraction status, right eye; Z89.422 Acquired absence of other left toe(s); Z88.2 Allergy status to sulfonamides; Z68.36 Body mass index [BMI] 36.0-36.9, adult; Z98.62 Peripheral vascular angioplasty status; Z79.82 Long term (current) use of aspirin; Z79.899 Other long term (current) drug therapy; Z99.2 Dependence on renal dialysis
CPT/HCPCS: 10078; 10081; 27000; 32100

== ENCOUNTER 2016-12-19 18:22 | Inpatient (IN) | payer OTHER, MEDICARE ==
[~2016-12-19] VITALS: Ht 182.9 cm; Wt 114.9 kg
--- NOTE | ~2016-12-19 | P ---
[facility] [place] [address] [place] [address] PROCEDURE REPORT Name: ABHIJIT CHOUDHURY Room #: 442-P [facility] IN M.R.#: [id number] Admission: 12/19/16 Attend Phys: Luis Espinoza MD Discharge: Date of : 46 Report #: [id number] THIS REPORT FOR: //name// CC: Alecia Bell MD DATE OF SERVICE: 12/21/2016 PROCEDURE PERFORMED: Upper endoscopy. HISTORY OF PRESENT ILLNESS: The patient is a 66-year-old male with multiple medical problems, has been on aspirin and Plavix among other medications, possible history of gastroparesis and episode of coffee ground type emesis at the [facility]. He is on hemodialysis, he has a history of diabetes, gastroesophageal reflux disease, stools Hemoccult positive. He is anemic, reportedly has a segment of Angel's esophagus as well. Plan is for EGD. DESCRIPTION OF PROCEDURE: The risks and benefits of the procedure were explained to the patient, those risks including but not limited to bleeding, perforation, the risk of sedation. He understood these risks and gave informed consent. Sedation was given using propofol per anesthesia. Next, using a standard Component[employer] upper endoscope, the scope was placed in the patient's mouth and advanced under direct vision through the esophagus, stomach and into the second portion of the duodenum. The larynx was normal in appearance. The upper esophagus was normal; however, in the mid to distal esophagus, severe grade D esophagitis was noted with multiple ulcerations. I was unable to obtain biopsies due to the patient being on aspirin and Plavix recently, but this does appear consistent with reflux esophagitis. There was no active bleeding. Overall, the gastric mucosa was normal other than there was some liquid within the stomach suggesting the possibility of gastroparesis. The pylorus was normal and patent. The duodenal bulb, first and second portion were all normal. The scope was then withdrawn and the procedure terminated. The patient tolerated the procedure well. IMPRESSION: 1. Severe grade D erosive esophagitis, likely secondary to reflux and suspect gastroparesis may be playing a role as well. 2. Otherwise, normal upper endoscopy. RECOMMENDATIONS: 1. Continue b.i.d. PPI therapy. 2. We will add liquid Carafate q.a.c. and at bedtime. 3. We will consider promotility agent in the near future such as Reglan or erythromycin; however, the patient was just diagnosed with C. diff and is having [address] [address] PROCEDURE REPORT Name: ABHIJIT CHOUDHURY Room #: 442-P [facility] IN M.R.#: [id number] Admission: 12/19/16 Attend Phys: Luis Espinoza MD Discharge: Date of : 46 Report #: [id number] diarrhea at this time. We would like C. diff to improve before starting promotility agent. Thank you for allowing me to participate in his care. <ELECTRONICALLY SIGNED> By: Sravan Mccord MD 12/24/16 0818 1456 194 Sravan Mccord MD /nt
--- NOTE | ~2016-12-19 | HC ---
[facility] [place] [address] [place] [address] CONSULTATION Name: ABHIJIT CHOUDHURY Room #: 442-P [facility] IN M.R.#: [id number] Admission: 12/19/16 Attend Phys: Luis Espinoza MD Discharge: Date of : 46 Report #: [id number] THIS REPORT FOR: //name// CC: Alecia Espinoza DATE OF SERVICE: 12/20/2016 CHIEF COMPLAINT: Multiple skin ulcerations. HISTORY OF PRESENT ILLNESS: This is a 66-year-old male patient, who is well known to our service, who was recently admitted to the hospital with complaints of nausea and diarrhea. He has had multiple ongoing skin ulcerations. He notes that his area on his sacrum he thinks is worse due to frequent diarrhea. I have been asked to see him with regard to ongoing wound care. He denies any significant shortness of breath or fever. At this time, he does complain of persistent diarrhea and some nausea. PAST MEDICAL HISTORY: The patient's past medical history is positive for history of end-stage renal disease, requiring hemodialysis; type 2 diabetes mellitus and coronary artery disease, status post coronary artery bypass graft. The patient with recent C. diff enterocolitis, chronic ulcerations, chronic anemia and possible recent upper GI bleeding. ALLERGIES: SULFA. MEDICATIONS: Include amlodipine, aspirin, magnesium, Colace, nystatin, DuoNeb, Plavix, atorvastatin, guaifenesin, Tylenol, ondansetron, Protonix, Accupril and hydrocodone. FAMILY HISTORY: Positive for diabetes. SOCIAL HISTORY: The patient denies alcohol or tobacco use. REVIEW OF SYSTEMS: CONSTITUTIONAL: The patient denies fever or chills, but has had recent weight loss over the past several months. ENT: The patient denies earache, nasal drainage or sore throat. CARDIOVASCULAR: The patient denies chest pain, palpitations or diaphoresis. PULMONARY: The patient denies cough or shortness of breath. GASTROINTESTINAL: The patient does complain of nausea and vomiting as well as persistent diarrhea. ORTHOPEDIC: The patient does note ulcerations on his lower extremities. Other systems and 12-point review of systems are negative, other than mentioned in the history of present illness. [facility] [address] [place] [address] CONSULTATION Name: ABHIJIT CHOUDHURY Room #: 442[facility] IN ..#: [id number] Admission: 12/19/16 Attend Phys: Luis Espinoza MD Discharge: Date of : 46 Report #: [id number] PHYSICAL EXAMINATION: VITAL SIGNS: At this time include temperature 98.4, pulse 77, respirator rate of 20 and blood pressure 136/68. GENERAL: This is a chronically ill-appearing male patient, who appears to be in mental stress. HEAD: Normocephalic. NECK: Supple. LUNGS: Diminished. HEART: Regular rhythm. ABDOMEN: Soft. It is somewhat distended and nontender. GENITOURINARY: Examination of the sacral region demonstrates a stage 3 ulceration with surrounding deep tissue injury. This appears worse than on his last admission, likely related to excessive moisture and immobility. EXTREMITIES: The patient's extremities demonstrate diminished, but yet palpable distal pulses. He has reasonably good capillary refill. He has several small areas of eschar on the right foot that have peeled away, revealing that the ulcerations there have closed. At the left foot, he has eschar on the tip of the left great toe, dorsal aspect of the second toe and at the lateral fifth MTP, which is dry, stable and intact and slowly beginning to peel away. He has a stage 3 pressure ulcer over the left heel with a moderate amount of slough. No bony exposure at this time. CLINICAL IMPRESSION: 1. Stage 3 sacral pressure ulcer with evidence of deep tissue injury. 2. Ulceration to the right foot that appeared not to be closed. 3. Ulcerations that are likely mixed arterial and diabetic in origin of the left foot, as described above. RECOMMENDATIONS: At this point in time, recommend using topical Betadine to the areas of eschar, Medihoney to the left heel. We will protect both feet with cushion boots while in bed. We will recommend a bordered foam dressing to the sacral region to be changed daily and as needed p.r.n. soiling. He will need to be turning and repositioning every 2 hours. I appreciate being asked to see him in consultation. <ELECTRONICALLY SIGNED> By: Yuan York MD 12/22/16 0911 1729 0014 Yuan York MD /nt
--- NOTE | ~2016-12-19 | HC ---
[facility] [place] [address] CONSULTATION Name: ABHIJIT CHOUDHURY Room #: 442-P ADM IN M.R.#: [id number] Admission: 12/19/16 Attend Phys: Luis Espinoza MD Discharge: Date of : 46 Report #: [id number] THIS REPORT FOR: //name// CC: Alecia Espinoza DATE OF SERVICE: 12/23/2016 REASON FOR CONSULTATION: Infiltrate and effusion. IMPRESSION: 1. Right infiltrate and effusion. 2. Gastrointestinal bleed. 3. End-stage renal disease. 4. Coronary artery disease with coronary artery bypass graft. 5. Questionable obstructive sleep apnea. PLAN: I agree with current therapy, aerosol therapy, antibiotics per ID and pulmonary toilet. We will do a decubitus after dialysis tomorrow. We will ask speech therapy to see and follow up also. HISTORY OF PRESENT ILLNESS: A very pleasant 66-year-old male admitted on 12/19, developed abdominal bloating, diarrhea and coffee-ground emesis, has undergone endoscopy, erosive esophagitis with bleeding. Also found to have C. diff positivity. Chest x-ray done today as well as CT of abdomen yesterday showed infiltrate and atelectasis and some effusion on the right. The patient denies aspiration, but did relate he vomited quite a bit. He denies progressive shortness of breath. ALLERGIES: To TAPE and SULFA. CURRENT MEDICATIONS: Include amlodipine, Flomax, Mucinex, lisinopril, Lipitor, Coreg, Protonix, Carafate and DuoNeb. PAST SURGICAL HISTORY: Surgeries in the past included appendectomy, right toe amputation and bilateral cataract surgery. FAMILY HISTORY: Noncontributory. SOCIAL HISTORY: Negative tobacco. Significant ETOH. REVIEW OF SYSTEMS: Positive for diabetes, obesity, NOAH, cellulitis, cardiopulmonary arrest times 4 and weight loss. PHYSICAL EXAMINATION: VITAL SIGNS: Temp 97.8, pulse 82, respirations 20 and BP 156/70. [facility] [address] [place] [address] CONSULTATION Name: ABHIJIT CHOUDHURY PASTOR Room #: 442-[facility] IN ..#: [id number] Admission: 12/19/16 Attend Phys: Luis Espinoza MD Discharge: Date of : 46 Report #: [id number] EYES: Negative icterus. NECK: Negative JVD. LUNGS: Decreased breath sounds in the right, coarse. HEART: Regular. ABDOMEN: Bowel sounds present. Soft. No edema. NEUROLOGIC: Alert and oriented. LABORATORY DATA: Chest x-ray, worsening of the right lung infiltrate with effusion. Creatinine 3.1. White count 6, hemoglobin 9.7. We will follow closely with you. By: 04 0119 Darwin Rincon MD /nt
--- NOTE | ~2016-12-19 | EKG ---
[address] [address] ELECTROCARDIOGRAM REPORT Name: MACEYABHIJITSAGE BAUMANN Room #: 442-P ADM IN M.R.#: [id number] Admission: 12/19/16 Attend Phys: Luis Espinoza MD Discharge: Date of : 48 Report #: [id number] THIS REPORT FOR: //name// [facility] ED Test Date: 2016-12-19 Test Time: 19:03:15 Pat Name: ABHIJIT CHOUDHURY Department: Room: 442 Gender: M Manager Ambulatory: shaina : 1950 Requested By: Colt Gomez Order Number: [id number] MD: Cesario Pickett Measurements Intervals [place] Rate: 82 P: 44 HI: 204 QRS: 80 QRSD: 179 T: 43 QT: 409 QTc: 478 Interpretive Statements Sinus rhythm Right bundle branch block Compared to ECG 11/26/2016 18:00:29 Ventricular premature complex(es) no longer present First degree AV block no longer present Left posterior fascicular block no longer present Electronically Signed On 12-21-2016 12:40:25 CDT by Cesario Pickett [email or web address] <ELECTRONICALLY SIGNED> By: Cesario Pickett MD 12/21/16 1240 02 02 Cesario Pickett MD /EPI
--- NOTE | ~2016-12-19 | HC ---
[facility] [address] [place] [address] CONSULTATION Name: ABHIJIT CHOUDHURY Room #: 442-P [facility] IN M.R.#: [id number] Admission: 12/19/16 Attend Phys: Luis Espinoza MD Discharge: Date of : 48 Report #: [id number] THIS REPORT FOR: //name// CC: Alecia Espinoza INFECTIOUS DISEASE CONSULTATION REASON FOR CONSULTATION: I was asked to evaluate concerning C. difficile colitis. HISTORY OF PRESENT ILLNESS: The patient was a 66-year-old known from his previous hospitalizations with recurrent C. difficile colitis. He has also issues with ileus and abdominal bloating. He has diabetes, coronary artery disease and recurring episodes of cardiac arrest and PEA. He was at [facility] when he developed further abdominal bloating and diarrhea, then had coffee-ground emesis. He underwent upper endoscopy, finding erosive esophagitis with bleeding. Continues to have abdominal bloating. No fever, chills or sweats. Stools remained loose and C. difficile by PCR was positive. In addition, he has chronic wounds to his feet. ALLERGIES: SULFA and TAPE. MEDICATIONS: As noted on his SEP. Now on Levaquin, Zosyn and p.o. vancomycin. PAST MEDICAL HISTORY: Unchanged from his previous consultation and that of his current history and physical. FAMILY HISTORY: Unchanged from his previous consultation and that of his current history and physical. SOCIAL HISTORY: Unchanged from his previous consultation and that of his current history and physical. REVIEW OF SYSTEMS: Minimal cough. No sputum production. On oxygen per nasal cannula. No pleuritic chest pain. No more vomiting. Still has some lower abdominal discomfort. He dialyzes via right chest dialysis catheter 3 days a week. PHYSICAL EXAMINATION: GENERAL: The patient was alert and cooperative, on oxygen per nasal cannula. He was conversant, obese. HEENT: Unremarkable. NECK: Supple. Right chest dialysis catheter site unremarkable. CHEST: Clear anterolaterally. HEART: Regular, without murmur. ABDOMEN: Moderate distention. Tender in the lower quadrants bilaterally. No [facility] [address] [place] [address] CONSULTATION Name: MACEYABHIJIT PASTOR Room #: 442-P [facility] IN M.R.#: [id number] Admission: 12/19/16 Attend Phys: Luis Espinoza MD Discharge: Date of : 46 Report #: [id number] masses or hepatosplenomegaly. EXTREMITIES: Left foot with third toe eschar and wound to the dorsal surface over the PIP joint. Some purulent drainage was able to be expressed. He also has a wound to his left heel posteriorly, with area of tissue necrosis. No purulent drainage. Right lateral foot wound with eschar and small amount of purulent drainage able to be expressed. LABORATORY STUDIES: Chest x-ray showed right lower lobe atelectasis and effusion. Abdominal x-ray, ileus, gastric distention. Sodium 133, potassium 3.9, bicarbonate 30 and creatinine 2.4. BNP 11,000. Hemoglobin 8.7, white count 8.7 and platelet count 157,000. IMPRESSION AND PLAN: A 66-year-old with diabetes, end-stage renal disease, cardiomyopathy with recurring pulseless electrical activity, presents now with recurring Clostridium difficile colitis, complicating upper GI bleed. Given his multiple comorbidities, difficult to ascertain how much of the C. diff is primary infection versus secondary issue. In addition, the patient has diabetic foot ulcers with pressure ulcer to his heel that although has some pressure necrosis, is reasonably clean. There is still some purulent drainage involving other eschar lesions to his feet bilaterally. Given the recurring C. difficile colitis, I would like to limit his other systemic antibiotics as much as possible. We will continue with enteral vancomycin and follow his chest x-ray. May need further lower endoscopy and imaging studies if he does not show any signs of improvement. His last CT scan of the abdomen performed here was in March 2013. <ELECTRONICALLY SIGNED> By: Titus Sanders MD 12/22/16 1548 1803 0035 Titus Sanders MD /nt
--- NOTE | ~2016-12-19 | HC ---
[facility] [address] [place] [address] CONSULTATION Name: ABHIJIT CHOUDHURY Room #: 442-P [facility] IN M.R.#: [id number] Admission: 12/19/16 Attend Phys: Luis Espinoza MD Discharge: Date of : 46 Report #: [id number] THIS REPORT FOR: //name// CC: Alecia Espinoza DATE OF SERVICE: 12/20/2016 REASON FOR CONSULTATION: End-stage renal disease. HISTORY OF PRESENT ILLNESS: The patient is well known to our group. He has a longstanding history of diabetes mellitus with progressive renal decline. He has had multiple recent hospitalizations. He has fortunately sustained 4 prior episodes of cardiac arrest. The patient was recently hospitalized at [facility] with C. difficile colitis. He had been discharged to [facility] and was dialyzing at [facility]. Over the past several days, he has developed increasing nausea and gastric distress. He then developed significant diarrhea. He denies fevers, chills, sweats, or other constitutional complaints. He completed his last regular dialysis treatment on Tuesday of last week. He was brought to the emergency room because of his recurrent diarrhea and declining physical status. PAST MEDICAL HISTORY: Remarkable as described above for longstanding diabetes mellitus, morbid obesity, obstructive sleep apnea, recurrent cellulitis, and cardiopulmonary arrest times 4. ALLERGIES: To SULFA and . MEDICATIONS: On admission include amlodipine, aspirin, magnesium, Colace, nystatin, DuoNeb, Plavix, atorvastatin, guaifenesin, Tylenol, ondansetron, Protonix, Accupril, and hydrocodone. FAMILY HISTORY: Remarkable for diabetes mellitus, but negative for renal disease. PERSONAL AND SOCIAL HISTORY: The patient does not smoke, use alcohol or have any history of substance abuse. He is and had previously been living with his at home. REVIEW OF SYSTEMS: Remarkable for an approximate 80-pound weight loss over the past several months, most of which has been via dialysis and accomplished through removal of extra cellulitic fluid volume. He denies any vertigo, loss of consciousness, shortness of breath, or productive cough. He has had nausea and diarrhea as described in the history of present illness. [address] [address] CONSULTATION Name: ABHIJIT CHOUDHURY Room #: 442-P [facility] IN M.R.#: [id number] Admission: 12/19/16 Attend Phys: Luis Espinoza MD Discharge: Date of : 48 Report #: [id number] PHYSICAL EXAMINATION: GENERAL: Reveals a well-developed, well-nourished male, appearing his stated age, in no acute distress. VITAL SIGNS: Blood pressure 136/68, temperature 98.4, pulse 77, and respirations 20. SKIN: Warm and dry. There is no gross clubbing, cyanosis, edema, or adenopathy. HEENT: The head is normocephalic and atraumatic. The sclerae are white. The pharynx is benign. NECK: Supple. LUNGS: [place] are grossly clear to percussion and auscultation. CARDIOVASCULAR: Reveals a regular rate and rhythm without rub. ABDOMEN: Moderately distended with mild tenderness. There is no guarding or rebound noted. NEUROLOGIC: Reveals the patient to be alert and cooperative with a nonfocal exam. LABORATORY STUDIES: Available at this time include sodium 135, potassium 4.0, chloride 97, CO2 of 32, BUN 34, creatinine 3.8, glucose 318, and calcium 85. White blood cell count 13,000, hemoglobin 8.7, hematocrit 26.9, and platelet count 197,000. C. diff pending. ASSESSMENT: 1. Recurrent diarrhea in this patient with previous Clostridium difficile, suspect Clostridium difficile until proven otherwise. He needs treatment for same and isolation. 2. End-stage renal disease, on maintenance hemodialysis for dialysis treatment today. 3. Diabetes mellitus. 4. Status post cardiopulmonary arrest times 4. PLAN: This is a very complicated patient with multiple active problems. He has repeatedly demonstrated his proclivity to events. He warrants careful followup and continued monitoring. Please see orders. <ELECTRONICALLY SIGNED> By: Glen Bell MD 12/21/16 0607 1008 1609 Glen Bell MD /nt
[~2016-12-19 18:22] MED LIST changes: +ACCUPRIL40 MG PO
[2016-12-19 18:52] LABS: HEMATOCRIT 30.4 % (42.0-52.0); HEMOGLOBIN 9.5 gm/dL (14.0-18.0); MCH 25.7 pg (26.0-34.0); MCHC 31.3 g/dL (28.0-37.0); MCV 82.1 fL (80.0-100.0); PLATELET COUNT 197 thou/uL (150-400); RDW 19.9 % (10.5-14.5)
[2016-12-19 18:53] LABS: MANUAL DIFF YES
[2016-12-19 19:07] LABS: APTT 30.9 Seconds (24.5-32.8); INR 1.1; PROTIME 11.1 Seconds (9.3-11.4)
[2016-12-19 19:15] LABS: ABSOLUTE NEUTROPHILS 12.1 thou/uL (1.4-8.2); ANISOCYTOSIS 2+; HYPOCHROMASIA SLIGHT; TOTAL CELL COUNT 100
[2016-12-19 19:16] LABS: POLYCHROMASIA OCCASIONAL
[2016-12-19 19:28] LABS: ANION GAP 6 mmol/L (7-16); BUN 34 mg/dL (7-18); CALCIUM 8.5 mg/dL (8.5-10.1); CHLORIDE 97 mmol/L (98-107); CO2 32 mmol/L (21-32); CREATININE 3.8 mg/dL (0.7-1.3); GLUCOSE 318 mg/dL (74-106); SODIUM 135 mmol/L (136-145)
[2016-12-19 19:35] LABS: ALBUMIN 2.1 g/dL (3.4-5.0); ALKALINE PHOSPHATASE 120 U/L (46-116); DIRECT BILIRUBIN 0.1 mg/dL (<0.1-0.3); SGOT 17 U/L (15-37); SGPT 12 U/L (30-65); TOTAL BILIRUBIN 0.4 mg/dL (<0.1-1.0); TOTAL PROTEIN 6.7 g/dL (6.4-8.2); TROPONIN-I < 0.04 ng/mL (<0.04-0.07)
[2016-12-19] MEDS ORDERED: ENOXAPARIN30 MG/0.1 SUBQ (20:07)
[2016-12-19] MEDS ORDERED: FUROSEMIDE 80 M80 M1 PO (20:09)
[2016-12-19] MEDS ORDERED: LEVEMIR100 UNIT/1 SUBQ (20:10)
[2016-12-19] MEDS ORDERED: MICONAZOLE5 GM TOP (20:11)
[2016-12-19] MEDS ORDERED: B-COMPLEX PLUS1 EACH PO (20:12)
[2016-12-19] MEDS ORDERED: SALINE MIST45 ML NS (20:13)
[2016-12-19] MEDS ORDERED: NEXIUM40 MG PO (20:15)
[2016-12-19] MEDS ORDERED: ACIDOPHILUS1 EAC3 PO (20:16)
[2016-12-19] MEDS ORDERED: TUMS PO (20:17)
[2016-12-19] MEDS ORDERED: LEVAQUIN 500 M500 M2 PO (20:19)
[2016-12-19] MEDS ORDERED: HYDRALAZINE 2525 MG PO (20:34)
[2016-12-19] MEDS ORDERED: SILVADENE20 GM TP (20:36)
[2016-12-19 21:01] VITALS: BP 134/48
[2016-12-19 22:15] VITALS: BP 157/70
[2016-12-20 04:45] VITALS: BP 135/62
[2016-12-20 04:59] LABS: HEMATOCRIT 26.9 % (42.0-52.0); HEMOGLOBIN 8.7 gm/dL (14.0-18.0)
[2016-12-20 09:02] VITALS: BP 136/68
[2016-12-20 10:31] LABS: HEMATOCRIT 28.2 % (42.0-52.0); HEMOGLOBIN 8.9 gm/dL (14.0-18.0)
[2016-12-20 16:15] LABS: HEMATOCRIT 29.6 % (42.0-52.0); HEMOGLOBIN 9.4 gm/dL (14.0-18.0)
[2016-12-20 17:19] VITALS: BP 133/57
[2016-12-20 21:25] VITALS: BP 97/49
[2016-12-20 22:19] LABS: HEMATOCRIT 28.1 % (42.0-52.0)
[2016-12-21 05:25] LABS: HEMOGLOBIN 8.7 gm/dL (14.0-18.0); MCHC 32.2 g/dL (28.0-37.0); MCV 80.9 fL (80.0-100.0); RBC 3.34 mil/uL (4.50-6.00); RDW 20.3 % (10.5-14.5); WBC 8.7 thou/uL (4.0-11.0)
[2016-12-21 05:37] LABS: ALBUMIN 1.8 g/dL (3.4-5.0); CALCIUM 7.9 mg/dL (8.5-10.1); MAGNESIUM 1.7 mg/dL (1.8-2.4); PHOSPHORUS 2.9 mg/dL (2.5-4.9); POTASSIUM 3.9 mmol/L (3.5-5.1)
[2016-12-21 05:41] LABS: CREATININE 2.4 mg/dL (0.7-1.3)
[2016-12-21 05:42] VITALS: BP 144/66
[2016-12-21 08:32] VITALS: BP 152/73
[2016-12-21 17:49] VITALS: BP 181/86
[2016-12-21 19:32] VITALS: BP 183/88
[2016-12-22 04:35] VITALS: BP 176/79
[2016-12-22 05:24] LABS: HEMOGLOBIN 9.7 gm/dL (14.0-18.0); MCHC 32.2 g/dL (28.0-37.0); MCV 80.7 fL (80.0-100.0); RBC 3.72 mil/uL (4.50-6.00); RDW 19.8 % (10.5-14.5)
[2016-12-22 05:41] LABS: CALCIUM 8.4 mg/dL (8.5-10.1); CREATININE 3.1 mg/dL (0.7-1.3); PHOSPHORUS 4.6 mg/dL (2.5-4.9); POTASSIUM 4.9 mmol/L (3.5-5.1)
[2016-12-22 08:59] VITALS: BP 165/82
[2016-12-22 16:50] VITALS: BP 176/86
[2016-12-22 19:23] VITALS: BP 158/77
[2016-12-23 05:38] VITALS: BP 186/81
[2016-12-23 08:00] VITALS: BP 173/99
[2016-12-23 16:00] VITALS: BP 153/72
[2016-12-23 19:23] VITALS: BP 156/70
[2016-12-24 05:34] VITALS: BP 190/89
[2016-12-24 06:24] LABS: HEMOGLOBIN 8.9 gm/dL (14.0-18.0); MCH 25.9 pg (26.0-34.0); MCHC 31.8 g/dL (28.0-37.0); MCV 81.4 fL (80.0-100.0); RBC 3.44 mil/uL (4.50-6.00); RDW 19.7 % (10.5-14.5); WBC 6.4 thou/uL (4.0-11.0)
[2016-12-24 06:32] LABS: CALCIUM 7.8 mg/dL (8.5-10.1); CREATININE 3.4 mg/dL (0.7-1.3); POTASSIUM 3.5 mmol/L (3.5-5.1)
[2016-12-24 08:00] VITALS: BP 150/75
[2016-12-24 12:00] VITALS: BP 163/84
[2016-12-24 14:35] LABS: ABG SAMPLE TYPE ARTERIAL; BE(vivo) 5.1 mmol/L (-2 to +3); LACTATE 1.52 mmol/L (0.5-2.0); O2(CT) 12.3 mL/dL (15.0-23.0); O2Hb 88.8 % (92.0-98.0); PCO2 45.9 mmHg (35.0-45.0); PO2 56.3 mmHg (80.0-100.0); pH 7.433 (7.360-7.450); tCO2 31.4 mmol/L (24.0-30.0)
[2016-12-24 14:36] LABS: STICK SITE R.RADIAL
[2016-12-24 16:42] VITALS: BP 192/80
[2016-12-24 20:11] VITALS: BP 156/66
[2016-12-24 23:25] VITALS: BP 137/57
[2016-12-25 04:15] VITALS: BP 126/60
[2016-12-25] MEDS ORDERED: HYDROCODON-ACE1 EAC7 PO (07:10)
[2016-12-25] MEDS ORDERED: VANCOMYCIN100 MG/ML PO (07:10)
[2016-12-25 08:01] VITALS: BP 125/56
== END 2016-12-25 13:25 | DRG 380 ==
LOC: ER 18:22 → EROBS 20:48 → 4S 20:48
PROVIDERS: Emergency Medicine; Family Medicine; Internal Medicine Nephrology; Internal Medicine Pulmonary Disease; Nurse Practitioner Acute Care
PROC: 5A1D60Z (ICD-10-PCS; 2016-12-20)
PROC: 0DJ08ZZ Inspection of Upper Intestinal Tract, Via Natural or Artificial Opening Endoscopic (ICD-10-PCS; principal; 2016-12-21)
DX: K22.11 Ulcer of esophagus with bleeding (principal); J18.1 Lobar pneumonia, unspecified organism; L89.153 Pressure ulcer of sacral region, stage 3; N18.6 End stage renal disease; E43 Unspecified severe protein-calorie malnutrition; L89.623 Pressure ulcer of left heel, stage 3; A04.7 Enterocolitis due to Clostridium difficile; I13.2 Hypertensive heart and chronic kidney disease with heart failure and with stage 5 chronic kidney disease, or end stage renal disease; I50.32 Chronic diastolic (congestive) heart failure; K56.7 Ileus, unspecified; E87.0 Hyperosmolality and hypernatremia; K92.2 Gastrointestinal hemorrhage, unspecified; E11.319 Type 2 diabetes mellitus with unspecified diabetic retinopathy without macular edema; I25.5 Ischemic cardiomyopathy; I25.10 Atherosclerotic heart disease of native coronary artery without angina pectoris; G47.33 Obstructive sleep apnea (adult) (pediatric); N40.0 Benign prostatic hyperplasia without lower urinary tract symptoms; I27.2 Other secondary pulmonary hypertension; K20.9 Esophagitis, unspecified; E11.621 Type 2 diabetes mellitus with foot ulcer; E11.22 Type 2 diabetes mellitus with diabetic chronic kidney disease; K31.84 Gastroparesis; E11.40 Type 2 diabetes mellitus with diabetic neuropathy, unspecified; Z68.34 Body mass index [BMI] 34.0-34.9, adult; R33.9 Retention of urine, unspecified; E86.0 Dehydration; D63.8 Anemia in other chronic diseases classified elsewhere; E11.43 Type 2 diabetes mellitus with diabetic autonomic (poly)neuropathy; Z79.4 Long term (current) use of insulin; Z90.49 Acquired absence of other specified parts of digestive tract; Z95.1 Presence of aortocoronary bypass graft; Z89.431 Acquired absence of right foot; Z98.42 Cataract extraction status, left eye; Z79.82 Long term (current) use of aspirin; Z79.899 Other long term (current) drug therapy; Z98.41 Cataract extraction status, right eye; Z88.2 Allergy status to sulfonamides; Z83.3 Family history of diabetes mellitus; Z98.62 Peripheral vascular angioplasty status; Z99.2 Dependence on renal dialysis
CPT/HCPCS: 10100; 32100; 62110; 62900; 70005

== ENCOUNTER 2017-05-17 04:51 | Inpatient (IN) | payer OTHER, MEDICARE ==
[~2017-05-17] VITALS: Ht 233.7 cm; Wt 98.0 kg
[2017-05-17] VITALS (10 sets, daily range): BP systolic 108–162; BP diastolic 45–75
--- NOTE | ~2017-05-17 | HC ---
[facility] [address] CONSULTATION Name: ABHIJIT CHOUDHURY Room #: 354-P [facility] IN M.R.#: [id number] Admission: 05/17/17 Attend Phys: Theodore cOhoa MD Discharge: Date of : 48 Report #: [id number] THIS REPORT FOR: //name// CC: Olivier Ochoa REASON FOR CONSULTATION: I was asked to evaluate concerning sepsis and GI bleed. HISTORY OF PRESENT ILLNESS: The patient was a 66-year-old who was being evaluated at [facility]. He had multiple issues including his diabetes, end-stage renal disease, marked debility, recent dhucb-sbt-kyjw amputation on the left. Over the last 10 days, he has had several episodes of low-grade fever along with hypotension and suspected sepsis. These were treated with broad antibiotic coverage. Blood cultures had remained negative. Urine culture did show yeast. He did have urinary retention, and a Ayala catheter was needed. He continued on 3 times a week dialysis. On day of his transfer on 05/17/2017, he had evidence of coffee-ground emesis. His hemoglobin dropped to 7. He had been on Lovenox. ALLERGIES: SULFA AND TAPE. MEDICATIONS: As noted on his MAR including vancomycin, meropenem and fluconazole. PAST MEDICAL HISTORY, FAMILY HISTORY, SOCIAL HISTORY: Unchanged from his history and physical and that my previous consultation. It is noted that he does have a history of C. difficile colitis. REVIEW OF SYSTEMS: The patient was unable to give further details, but most notably no chest pain, cough or sputum production. He has had soft loose stools. He had a suprapubic catheter placed today. He had an EGD which showed erosive esophagitis and gastritis. PHYSICAL EXAMINATION: VITAL SIGNS: Afebrile and hemodynamically stable. He is on 2 liters of oxygen per nasal cannula. He has 3+ anasarca, mostly involving his upper extremities. LUNGS: Clear anteriorly. Few crackles in the bases, mostly on the right. HEART: Regular without murmur. EXTREMITIES: Right upper extremity peripheral IV in place. He had a right chest dialysis catheter in place. ABDOMEN: Soft and nontender. Suprapubic catheter site was unremarkable. Left AKA incision was well approximated. LABORATORY STUDIES: Sodium 141, potassium 3.7, bicarbonate 29, creatinine 1.3. Liver function tests normal. Hemoglobin 9. WBC 9.1, platelet count 100,000. Chest x-ray, right lower lobe infiltrate. Differential 81% segs, 12% [place] [address] CONSULTATION Name: ABHIJIT CHOUDHURY Room #: 354-P [facility] IN M.R.#: [id number] Admission: 05/17/17 Attend Phys: Theodore Ochoa MD Discharge: Date of : 48 Report #: [id number] Repeat blood cultures are negative today. IMPRESSION: A 66-year-old with diabetes, end-stage renal disease, markedly compromised, very weak, with upper gastrointestinal bleed and drop in his hemoglobin, along with episodes of sepsis. We will obtain culture results from [facility]. We will continue with antifungal treatment. If he has evidence of high-grade candidemia, his dialysis catheter will need to be replaced. Further gastrointestinal workup as scheduled by Gastroenterology Service. <ELECTRONICALLY SIGNED> By: Titus Sanders MD 05/19/172009 58 121 Ttius Sanders MD /nt
--- NOTE | ~2017-05-17 | HC ---
[facility] [address] CONSULTATION Name: ABHIJIT CHOUDHURY Room #: 354-P [facility] IN M.R.#: [id number] Admission: 05/17/17 Attend Phys: Theodore Ochoa MD Discharge: 05/24/17 Date of : 48 Report #: [id number] THIS REPORT FOR: //name// CC: Lucio Ochoa MD DATE OF SERVICE: 05/17/2017 HISTORY OF PRESENT ILLNESS: The patient is a 66-year-old male with multiple medical problems, currently residing at [facility]. The patient began having coffee-ground emesis last evening. He had an upper endoscopy by myself in December of this year for GI bleed and was noted to have severe grade D erosive esophagitis. He was placed on PPI therapy at that time. He is now on Pepcid and not PPI. He does report some mild abdominal pain. He has a history of possible gastroparesis. His admit hemoglobin is 7.0. INR 1.3. The patient is on aspirin, Lovenox as well as Reglan among other medications. PAST MEDICAL HISTORY: History of gastroesophageal reflux disease, gastroparesis, previous history of severe esophagitis, anemia, history of cardiac arrest, coronary artery disease, congestive heart failure, end-stage renal disease and history of gastrointestinal bleed. ALLERGIES: To SULFA and TAPE. MEDICATIONS: Albuterol, Atrovent, amiodarone, aspirin 81 mg, Questran, Omnicef, docusate, Lovenox, Pepcid 20 every day, fluconazole, fluticasone nasal spray, insulin, probiotic, ____, meropenem, Reglan taking 5 mg before each meal and at bedtime and vancomycin. REVIEW OF SYSTEMS: As per HPI. SOCIAL HISTORY: Denies any tobacco or alcohol use. FAMILY HISTORY: Negative for colon cancer. PHYSICAL EXAMINATION: VITAL SIGNS: Temperature is 36.3, pulse 96, blood pressure 162/72 and respiratory rate is 20. GENERAL: He is alert and oriented x 3, in no acute distress. HEENT: Sclerae nonicteric. Oropharynx clear. NECK: Supple. CARDIOVASCULAR: Regular rate. CHEST: Clear to auscultation anteriorly and bilaterally. ABDOMEN: Soft. He is nontender, nondistended and normoactive bowel sounds. [address] [address] CONSULTATION Name: ABHIJIT CHOUDHURY Room #: 354-P [facility] IN M.R.#: [id number] Admission: 05/17/17 Attend Phys: Theodore Ochoa MD Discharge: 05/24/17 Date of : 46 Report #: [id number] EXTREMITIES: The patient has had an cmsdl-dsd-diew amputation on the left with a dressing in place. LABORATORY DATA: WBC is 9.8, hemoglobin 7.0 and platelet count is 109. INR 1.3. Sodium 139, potassium 3.3, chloride 103, bicarbonate 29, BUN 21, creatinine is 2.2 and glucose 122. Calcium 7.0, total bilirubin 0.8, AST 34, ALT is 33, alkaline phosphatase 171, total protein 4.1, albumin 1.3 and lipase 21. Chest x-ray, right lower lobe infiltrate with small right pleural effusion and cardiomegaly without overt failure. ASSESSMENT AND PLAN: History of recent upper gastrointestinal bleed. The patient describes coffee-ground emesis yesterday. Previous upper endoscopy by myself in December of 2016 showed severe grade D erosive esophagitis. The patient has been on aspirin as well as Pepcid. We would recommend repeating upper endoscopy today, may need transfusion. Continue to monitor hemoglobin closely. We will make further recommendations after endoscopy. Thank you for allowing me to participate in his care. <ELECTRONICALLY SIGNED> By: Sravan Mccord MD 05/25/17 0811 1453 0254 Sravan Mccord MD /nt
--- NOTE | ~2017-05-17 | HC ---
[facility] [address] CONSULTATION Name: ABHIJIT CHOUDHURY Room #: 354-P [facility] IN M.R.#: [id number] Admission: 05/17/17 Attend Phys: Theodore Ochoa MD Discharge: Date of : 48 Report #: [id number] THIS REPORT FOR: //name// CC: Olivier Ochoa WOUND CARE CONSULTATION DATE OF CONSULTATION: 05/17/2017. REASON FOR WOUND CARE CONSULTATION: Status post left leg amputation with sacral pressure sores and pressure sores of right heel and foot. HISTORY OF PRESENT ILLNESS: The patient is a 66-year-old gentleman well known to me from [facility] where he has been most recently taking care of, this obese gentleman with end-stage renal disease, on dialysis, who recently underwent left leg above knee amputation for severe ulcerations of the leg and foot. His above knee amputation has been well healing. Wound care is consulted for care of sacral pressure sores as well as pressure sores of the right heel and foot. The patient transferred to [facility] at this time for upper GI coffee ground emesis requiring blood transfusion, he has been seen in consultation by Dr. Mccord. PAST MEDICAL HISTORY: Gastroesophageal reflux disease, history of severe esophagitis, history of cardiac arrest with resuscitation, obesity, history of coronary artery disease, history of congestive heart failure, history of end-stage renal disease on hemodialysis. History of right lower lobe pneumonia. Status post cerebrovascular accident. MEDICATIONS: Include amlodipine, magnesium oxide, Colace, nystatin, albuterol, clopidogrel, atorvastatin, pantoprazole, hydrocodone, tamsulosin, insulin, Lasix. PAST SURGICAL HISTORY: Insulin-dependent diabetes mellitus with left above knee amputation, appendectomy, coronary artery bypass graft in 2012, left above knee amputation for diabetic foot complications and osteomyelitis of the heel, bilateral cataract surgery, cardiac stents. PHYSICAL EXAMINATION: GENERAL: Shows an alert, conversant, elderly gentleman, obese. HEENT: Mucous membranes moist. NECK: Supple. LUNGS: Respirations unlabored. ABDOMEN: Obese. MUSCULOSKELETAL: Examination of the patient's back shows an unstageable sacral pressure sore, relatively small approximately 2.5 cm in length x 1 cm in width. Examination of the lower extremities shows a recent left above knee amputation [address] [address] CONSULTATION Name: ABHIJIT CHOUDHURY PASTOR Room #: 354-P [facility] IN .R.#: [id number] Admission: 05/17/17 Attend Phys: Theodore Ochoa MD Discharge: Date of : 46 Report #: [id number] with intact incision line without cellulitis. Examination of the right lower extremity shows a stage IV pressure ulcer of the right heel with moderate exudate and a deep tissue injury lateral foot. IMPRESSION: 1. Obesity. 2. Recent upper gastrointestinal bleed requiring blood transfusion being evaluated. 3. End-stage renal disease, on hemodialysis. 4. History of diabetes mellitus type 2 with severe complications of the left foot and leg including osteomyelitis requiring recent above knee amputation. 5. Status post cerebrovascular accident. 6. Sacral unstageable pressure sore. 7. Right heel stage IV pressure sore. 8. Right foot deep tissue injury. PLAN: THE PATIENT IS ALLERGIC TO SULFA. We will treat the sacral pressure sores and the pressure sores of the right heel and foot with Optifoam pads, offloading with low air loss mattress, maximize nutrition. Wound care team will follow his wounds of the sacrum, right foot and heel and above knee amputation site. <ELECTRONICALLY SIGNED> By: Hugo Andrade MD 05/19/17 1425 1849 0741 Hugo Andrade MD /nt
--- NOTE | ~2017-05-17 | P ---
[facility] [place] [address] PROCEDURE REPORT Name: ABHIJIT CHOUDHURY Room #: 354-P [facility] IN M.R.#: [id number] Admission: 05/17/17 Attend Phys: Theodore Ochoa MD Discharge: Date of : 48 Report #: [id number] THIS REPORT FOR: //name// CC: Lucio Ochoa MD DATE OF SERVICE: 05/17/2017 PROCEDURE PERFORMED: Upper endoscopy. HISTORY OF PRESENT ILLNESS: The patient is a 66-year-old male residing at [facility], with multiple medical problems, who had an episode of coffee ground type emesis. Hemoglobin on admission was 7.0. Plan is for EGD. Of note, he had a previous upper endoscopy by myself in December, which showed severe grade D erosive esophagitis at that time. He has been taking Pepcid as well as aspirin among other medications. DESCRIPTION OF PROCEDURE: The risks and benefits of the procedure were explained to the patient, those risks including but not limited to bleeding, perforation and the risk of sedation. He understood these risks and gave informed consent. Sedation was given using propofol per anesthesia. Next, using a standard [place] upper endoscope, the scope was placed in the patient's mouth and advanced under direct vision through the esophagus, stomach and into the second portion of the duodenum. The larynx was normal in appearance. The upper and mid esophagus was normal in appearance. In the distal esophagus, at the GE junction, mild grade A erosive esophagitis was noted. No evidence of bleeding, otherwise normal. Overall, there was a diffuse mild gastritis. No bleeding or old blood was noted throughout the exam today. No erosions or ulcerations. The pylorus was normal and patent. The duodenal bulb, first and second portion, were all normal. The scope was then withdrawn and the procedure terminated. The patient tolerated the procedure well. IMPRESSION: 1. Grade A erosive esophagitis. 2. Mild gastritis. 3. Otherwise, normal upper endoscopy. RECOMMENDATIONS: No stigmata of bleeding on exam today; however, coffee ground emesis may have been secondary to gastritis or esophagitis. We would recommend PPI therapy instead of Pepcid on a daily basis and Carafate 3 times a day. If anemia persists, may need to consider further workup. Also of note, the patient apparently has been in the discussion with his physician at [facility] about a PEG tube. I will maybe gather more information about this, may need to consider PEG tube in the near future apparently. [address] [address] PROCEDURE REPORT Name: ABHIJIT CHOUDHURY Room #: 354-P [facility] IN M.R.#: [id number] Admission: 05/17/17 Attend Phys: Theodore Ochoa MD Discharge: Date of : 48 Report #: [id number] Thank you for allowing me to participate in his care. DICTATION ENDS HERE. <ELECTRONICALLY SIGNED> By: Sravan Mccord MD 05/20/17 1417 [id number] Sravan Mccord MD /nt
[~2017-05-17 04:51] MED LIST changes: +ACIDOPHILUS1 EAC3 PO; +B-COMPLEX PLUS1 EACH PO; +ENOXAPARIN30 MG/0.1 SUBQ; +FUROSEMIDE 80 M80 M1 PO; +HYDRALAZINE 2525 MG PO; +LEVAQUIN 500 M500 M2 PO; +LEVEMIR100 UNIT/1 SUBQ; +MICONAZOLE5 GM TOP; +NEXIUM40 MG PO; +SALINE MIST45 ML NS; +SILVADENE20 GM TP; +TUMS PO
[2017-05-17] MEDS ORDERED: ALBUTEROL ATROVENT INH (05:16)
[2017-05-17] MEDS ORDERED: PACERONE 200 M200 M1 PO (05:18)
[2017-05-17] MEDS ORDERED: ASPIR 8181 MG PO (05:19)
[2017-05-17] MEDS ORDERED: CHOLESTYRAMI239.4 GM PO (05:20)
[2017-05-17] MEDS ORDERED: SANTYL OINTMENT30 G1 TP (05:22)
[2017-05-17] MEDS ORDERED: COLACE 100 MG100 MG PO (05:24)
[2017-05-17] MEDS ORDERED: LOVENOX30 MG/0.3 SUBQ (05:25)
[2017-05-17] MEDS ORDERED: PEPCID20 MG PO (05:26)
[2017-05-17] MEDS ORDERED: DIFLUCAN200 MG (05:28)
[2017-05-17] MEDS ORDERED: FLONASE 0.05%50 MCG NASAL (05:29)
[2017-05-17] MEDS ORDERED: GENTAMICIN SULF30 GM TOP (05:31)
[2017-05-17] MEDS ORDERED: PROBIOTIC1 EAC1 PO (05:34)
[2017-05-17] MEDS ORDERED: LIDOCAINE IV (05:37)
[2017-05-17] MEDS ORDERED: LINZESS290 MCG PO (05:38)
[2017-05-17] MEDS ORDERED: MEROPENEM-1000 MG/50 IVPB (05:40)
[2017-05-17] MEDS ORDERED: REGLAN 5 MG TAB5 MG PO (05:40)
[2017-05-17 05:54] LABS: MCH 28.6 pg (26.0-34.0); MCHC 31.8 g/dL (28.0-37.0); MCV 89.8 fL (80.0-100.0); PLATELET COUNT 109 thou/uL (150-400); RBC 2.45 mil/uL (4.50-6.00); RDW 19.4 % (10.5-14.5); WBC 9.8 thou/uL (4.0-11.0)
[2017-05-17 05:56] LABS: MANUAL DIFF YES
[2017-05-17] MEDS ORDERED: SILVADENE20 GM (05:59)
[2017-05-17 06:01] LABS: CREATININE 2.2 mg/dL (0.7-1.3); POTASSIUM 3.3 mmol/L (3.5-5.1)
[2017-05-17] MEDS ORDERED: VANCOMYCIN1.5 GM/253 IV (06:02)
[2017-05-17 06:07] LABS: ALBUMIN 1.3 g/dL (3.4-5.0); APTT 45.1 Seconds (24.5-32.8); INR 1.3; PROTIME 13.6 Seconds (9.3-11.4); TOTAL BILIRUBIN 0.8 mg/dL (<0.1-1.0); TOTAL PROTEIN 4.1 g/dL (6.4-8.2)
[2017-05-17] MEDS ORDERED: LOPERAMIDE 2 MG2 M1 PO (06:15)
[2017-05-17 08:18] LABS: ABSOLUTE NEUTROPHILS 9.1 thou/uL (1.4-8.2); HYPOCHROMASIA 2+; TARGET CELLS 1+; TOTAL CELL COUNT 100; TOXIC GRANULATION 1+
[2017-05-17 08:19] LABS: ANISOCYTOSIS 3+; MICROCYTES 2+; OVALOCYTES 1+
[2017-05-17 08:20] LABS: POIKILOCYTOSIS 2+
[2017-05-18] VITALS (7 sets, daily range): BP systolic 110–161; BP diastolic 57–85
[2017-05-18 11:36] LABS: HEMATOCRIT 27.9 % (42.0-52.0); MCH 29.1 pg (26.0-34.0); MCHC 32.2 g/dL (28.0-37.0); MCV 90.6 fL (80.0-100.0); RBC 3.08 mil/uL (4.50-6.00); RDW 18.1 % (10.5-14.5); WBC 9.1 thou/uL (4.0-11.0)
[2017-05-18 11:46] LABS: CALCIUM 7.3 mg/dL (8.5-10.1); CREATININE 1.3 mg/dL (0.7-1.3); POTASSIUM 3.7 mmol/L (3.5-5.1)
[2017-05-19 04:00] VITALS: BP 133/62
[2017-05-19 07:30] VITALS: BP 137/68
[2017-05-19 09:58] VITALS: BP 137/68
[2017-05-19 12:00] VITALS: BP 126/59
[2017-05-19 12:56] LABS: HEMATOCRIT 26.4 % (42.0-52.0); HEMOGLOBIN 8.6 gm/dL (14.0-18.0)
[2017-05-19 16:04] VITALS: BP 118/59
[2017-05-19 20:00] VITALS: BP 126/56
[2017-05-20 04:00] VITALS: BP 127/64
[2017-05-20 06:21] LABS: HEMATOCRIT 26.5 % (42.0-52.0); HEMOGLOBIN 8.5 gm/dL (14.0-18.0)
[2017-05-20 07:18] VITALS: BP 127/64
[2017-05-20 08:15] VITALS: BP 133/83
[2017-05-20 12:00] VITALS: BP 125/70
[2017-05-20 15:38] VITALS: BP 94/47
[2017-05-20 19:12] VITALS: BP 134/59
[2017-05-21 03:20] VITALS: BP 121/61
[2017-05-21 08:51] VITALS: BP 136/53
[2017-05-21 12:06] VITALS: BP 125/61
[2017-05-21 14:48] LABS: BASOPHILS 0.7 % (0.0-2.0); MCH 29.3 pg (26.0-34.0); MCHC 32.1 g/dL (28.0-37.0); MCV 91.1 fL (80.0-100.0); MONOCYTES 11.4 % (1.0-8.0); PLATELET COUNT 132 thou/uL (150-400); POLYS 71.9 % (36.0-66.0); RBC 2.74 mil/uL (4.50-6.00); RDW 18.3 % (10.5-14.5); WBC 8.4 thou/uL (4.0-11.0)
[2017-05-21 14:53] LABS: MANUAL DIFF NO
[2017-05-21 16:00] VITALS: BP 125/63
[2017-05-21 19:54] VITALS: BP 136/66
[2017-05-22 04:02] VITALS: BP 121/59
[2017-05-22 04:26] LABS: CREATININE 2.7 mg/dL (0.7-1.3); POTASSIUM 3.2 mmol/L (3.5-5.1)
[2017-05-22 04:39] LABS: ABSOLUTE NEUTROPHILS 5.9 thou/uL (1.4-8.2); BASOPHILS 0.7 % (0.0-2.0); EOSINOPHILS 1.4 % (0.0-3.0); HEMATOCRIT 24.3 % (42.0-52.0); HEMOGLOBIN 7.9 gm/dL (14.0-18.0); LYMPHOCYTES 16.6 % (24.0-44.0); MCH 29.6 pg (26.0-34.0); MCHC 32.6 g/dL (28.0-37.0); MCV 90.8 fL (80.0-100.0); MONOCYTES 10.2 % (1.0-8.0); PLATELET COUNT 143 thou/uL (150-400); POLYS 71.1 % (36.0-66.0); RBC 2.68 mil/uL (4.50-6.00); RDW 18.3 % (10.5-14.5); WBC 8.2 thou/uL (4.0-11.0)
[2017-05-22 04:40] LABS: MANUAL DIFF NO
[2017-05-22 07:55] VITALS: BP 112/46
[2017-05-22 12:16] VITALS: BP 125/48
[2017-05-22 12:21] LABS: URINE BLOOD 2+ (Negative); URINE GLUCOSE-RANDOM* NEGATIVE (Negative); URINE KETONES TRACE (Negative); URINE PROTEIN (DIPSTICK) 2+ (Negative); URINE SPECIFIC GRAVITY 1.025 (1.003-1.035)
[2017-05-22 12:22] LABS: URINE COLOR AMBER; URINE LEUKOCYTES-REFLEX 2+ (Negative)
[2017-05-22 12:35] LABS: ICTOTEST (BILI CONFIRMATORY) Negative (Negative); URINE BILIRUBIN NEGATIVE (Negative)
[2017-05-22 13:17] LABS: CASTS None Seen /LPF (None Seen); CRYSTALS None Seen /LPF (None Seen); SQUAMOUS None Seen /LPF (0-3); URINE RBC 3-10 Few /HPF (0-2); URINE WBC-REFLEX >25 Many /HPF (0-5)
[2017-05-22 13:18] LABS: YEAST-REFLEX Present (None Seen)
[2017-05-22 16:11] VITALS: BP 101/47
[2017-05-22 19:50] VITALS: BP 124/58
[2017-05-23 03:25] VITALS: BP 120/59
[2017-05-23 06:24] LABS: ABSOLUTE NEUTROPHILS 6.5 thou/uL (1.4-8.2); BASOPHILS 0.9 % (0.0-2.0); EOSINOPHILS 1.7 % (0.0-3.0); HEMATOCRIT 24.3 % (42.0-52.0); HEMOGLOBIN 7.8 gm/dL (14.0-18.0); MCH 29.7 pg (26.0-34.0); MCV 92.9 fL (80.0-100.0); MONOCYTES 8.5 % (1.0-8.0); PLATELET COUNT 136 thou/uL (150-400); POLYS 75.9 % (36.0-66.0); RBC 2.62 mil/uL (4.50-6.00); RDW 18.7 % (10.5-14.5); WBC 8.5 thou/uL (4.0-11.0)
[2017-05-23 06:26] LABS: MANUAL DIFF NO
[2017-05-23 06:33] LABS: CALCIUM 7.1 mg/dL (8.5-10.1); CREATININE 3.2 mg/dL (0.7-1.3); POTASSIUM 3.7 mmol/L (3.5-5.1)
[2017-05-23 09:24] VITALS: BP 136/75
[2017-05-23 11:41] VITALS: BP 95/59
[2017-05-23 17:45] VITALS: BP 135/65
[2017-05-23 19:20] VITALS: BP 93/49
[2017-05-24 05:30] VITALS: BP 121/48
[2017-05-24 08:07] VITALS: BP 112/47
[2017-05-24 12:01] VITALS: BP 125/62
== END 2017-05-24 16:30 | DRG 314 ==
LOC: ER 04:51 → EROBS 06:39 → 3W 07:43
PROVIDERS: Emergency Medicine; Family Medicine; Internal Medicine Endocrinology, Diabetes & Metabolism; Internal Medicine Gastroenterology; Specialist
PROC: 30233N1 Transfusion of Nonautologous Red Blood Cells into Peripheral Vein, Percutaneous Approach (ICD-10-PCS; 2017-05-17)
PROC: 0T9B30Z Drainage of Bladder with Drainage Device, Percutaneous Approach (ICD-10-PCS; 2017-05-18)
PROC: 02PYX3Z Removal of Infusion Device from Great Vessel, External Approach (ICD-10-PCS; principal; 2017-05-19)
PROC: 0DH63UZ Insertion of Feeding Device into Stomach, Percutaneous Approach (ICD-10-PCS; 2017-05-20)
PROC: 5A1D70Z Performance of Urinary Filtration, Intermittent, Less than 6 Hours Per Day (ICD-10-PCS; 2017-05-20)
PROC: 5A1D70Z Performance of Urinary Filtration, Intermittent, Less than 6 Hours Per Day (ICD-10-PCS; 2017-05-23)
DX: T80.211A Bloodstream infection due to central venous catheter, initial encounter (principal); A41.9 Sepsis, unspecified organism; N18.6 End stage renal disease; K29.71 Gastritis, unspecified, with bleeding; J69.0 Pneumonitis due to inhalation of food and vomit; E43 Unspecified severe protein-calorie malnutrition; L89.614 Pressure ulcer of right heel, stage 4; R65.20 Severe sepsis without septic shock; B49 Unspecified mycosis; Z68.1 Body mass index [BMI] 19.9 or less, adult; N39.0 Urinary tract infection, site not specified; I13.2 Hypertensive heart and chronic kidney disease with heart failure and with stage 5 chronic kidney disease, or end stage renal disease; E11.51 Type 2 diabetes mellitus with diabetic peripheral angiopathy without gangrene; E11.40 Type 2 diabetes mellitus with diabetic neuropathy, unspecified; I50.9 Heart failure, unspecified; N40.0 Benign prostatic hyperplasia without lower urinary tract symptoms; I25.5 Ischemic cardiomyopathy; E11.319 Type 2 diabetes mellitus with unspecified diabetic retinopathy without macular edema; K22.70 Barrett's esophagus without dysplasia; G47.33 Obstructive sleep apnea (adult) (pediatric); I25.10 Atherosclerotic heart disease of native coronary artery without angina pectoris; D64.9 Anemia, unspecified; E66.9 Obesity, unspecified; L89.150 Pressure ulcer of sacral region, unstageable; K21.0 Gastro-esophageal reflux disease with esophagitis; B37.9 Candidiasis, unspecified; R33.9 Retention of urine, unspecified; R13.10 Dysphagia, unspecified; E11.22 Type 2 diabetes mellitus with diabetic chronic kidney disease; Y83.8 Other surgical procedures as the cause of abnormal reaction of the patient, or of later complication, without mention of misadventure at the time of the procedure; E87.6 Hypokalemia; Z98.42 Cataract extraction status, left eye; Z86.74 Personal history of sudden cardiac arrest; Z98.41 Cataract extraction status, right eye; Z89.422 Acquired absence of other left toe(s); Z99.2 Dependence on renal dialysis; Z86.73 Personal history of transient ischemic attack (TIA), and cerebral infarction without residual deficits; Z95.1 Presence of aortocoronary bypass graft; Z90.49 Acquired absence of other specified parts of digestive tract; Z79.899 Other long term (current) drug therapy; Z88.8 Allergy status to other drugs, medicaments and biological substances; Z88.2 Allergy status to sulfonamides; Y92.89 Other specified places as the place of occurrence of the external cause
CPT/HCPCS: 10779; 32100; 62110; 62900; 70005

== ENCOUNTER → 2017-06-16 | Outpatient (CLI) | payer OTHER, MEDICARE ==
[~2017-06-16] MED LIST changes: +ALBUTEROL ATROVENT INH; +CARVEDILOL6.25 MG PO; +CHOLESTYRAMI239.4 GM PO; +DIFLUCAN200 MG; +FLONASE 0.05%50 MCG NASAL; +GENTAMICIN SULF30 GM TOP; +LIDOCAINE IV; +LINZESS290 MCG PO; +LOPERAMIDE 2 MG2 M1 PO; +LOVENOX30 MG/0.3 SUBQ; +MEROPENEM-1000 MG/50 IVPB; +MYCAMINE100 MG IV; +PACERONE 200 M200 M1 PO; +PEPCID20 MG PO; +PROBIOTIC1 EAC1 PO; +REGLAN 5 MG TAB5 MG PO; +SANTYL OINTMENT30 G1 TP; +SILVADENE20 GM; +VANCOMYCIN1.5 GM/253 IV; +ZOSYN 2.25 GR2.25 GM IV
== END | disposition home or self-care (01) ==
LOC: ER 11:47 → SPEC 11:47 → EDSTATUS 12:43 → SPEC 13:13
DX: Z45.2 Encounter for adjustment and management of vascular access device (principal); E11.22 Type 2 diabetes mellitus with diabetic chronic kidney disease; E11.40 Type 2 diabetes mellitus with diabetic neuropathy, unspecified; N18.6 End stage renal disease; I50.9 Heart failure, unspecified; I25.10 Atherosclerotic heart disease of native coronary artery without angina pectoris; E11.621 Type 2 diabetes mellitus with foot ulcer; E11.319 Type 2 diabetes mellitus with unspecified diabetic retinopathy without macular edema; G47.33 Obstructive sleep apnea (adult) (pediatric); N40.0 Benign prostatic hyperplasia without lower urinary tract symptoms; I13.2 Hypertensive heart and chronic kidney disease with heart failure and with stage 5 chronic kidney disease, or end stage renal disease; Z86.73 Personal history of transient ischemic attack (TIA), and cerebral infarction without residual deficits; Z90.49 Acquired absence of other specified parts of digestive tract; Z86.14 Personal history of Methicillin resistant Staphylococcus aureus infection; Z88.2 Allergy status to sulfonamides; Z79.4 Long term (current) use of insulin

== ENCOUNTER 2017-06-17 13:53 | Inpatient (IN) | payer OTHER, MEDICARE ==
[~2017-06-17] VITALS: Ht 182.9 cm; Wt 91.9 kg
--- NOTE | ~2017-06-17 | HC ---
[facility] [place] [address] CONSULTATION Name: ABHIJIT CHOUDHURY Room #: 351-P [facility] IN M.R.#: [id number] Admission: 06/17/17 Attend Phys: Jennie Aguirre Discharge: Date of : 48 Report #: [id number] THIS REPORT FOR: //name// CC: Olivier Sanders DATE OF SERVICE: 06/17/2017 REASON FOR CONSULTATION: I was asked to evaluate concerning infected central venous catheter site. HISTORY OF PRESENT ILLNESS: The patient transfers from [facility] with concern over infected central venous catheter. Yesterday, he had his PICC removed for a suspected infection. This morning, he again became hypotensive on dialysis and was transferred to [facility] to have his dialysis catheter removed. The patient was a poor historian. He was very weak. Since transfer, he has had no fever or chills. Vital signs are stable. Oxygen requirements 2 liters per nasal cannula. PAST MEDICAL HISTORY, FAMILY HISTORY, AND SOCIAL HISTORY: Unchanged from his previous consultation earlier in the month. MEDICATIONS: As noted. He was started on vancomycin, Zosyn, and micafungin this afternoon. ALLERGIES: He is allergic to SULFA AND TAPE. PHYSICAL EXAMINATION: VITAL SIGNS: Afebrile and hemodynamically stable. He was weak. EXTREMITIES: Right chest catheter and neck exit sites had some purulent drainage. Surrounding erythema. Minimally tender. CHEST: Clear. HEART: Regular without murmur. ABDOMEN: Soft with a PEG tube and a suprapubic catheter. Left AKA site was dressed. LABORATORY STUDIES: Hemoglobin 10.6, WBC 8.8, platelet count 309,000. Chest x-ray with right pleural effusion which was small with associated atelectasis, infiltrate. Blood cultures are pending. Exit site culture also pending. IMPRESSION AND PLAN: A 66-year-old with diabetes, end-stage renal disease, very compromised now with suspected central venous catheter infection. PLAN: Recommend continuing IV antibiotic therapy pending culture results. [address] [address] CONSULTATION Name: MACEYABHIJIT Room #: 351-P [facility] IN ..#: [id number] Admission: 06/17/17 Attend Phys: Jennie Aguirre Discharge: Date of : 48 Report #: [id number] Nephrology has seen the patient and will discuss dialysis access pending culture results. <ELECTRONICALLY SIGNED> By: Titus Sanders MD 06/18/17 1114 [id number] Titus Sanders MD /nt
--- NOTE | ~2017-06-17 | HC ---
[facility] [place] [address] CONSULTATION Name: ABHIJIT CHOUDHURY Room #: 351-P [facility] IN M.R.#: [id number] Admission: 06/17/17 Attend Phys: Jennie Aguirre Discharge: 06/21/17 Date of : 48 Report #: [id number] THIS REPORT FOR: //name// CC: Olivier Sanders DATE OF SERVICE: 06/21/2017 REQUESTING PHYSICIAN: Gregor Dawn MD. CHIEF COMPLAINT: Multiple wounds. HISTORY OF PRESENT ILLNESS: This is a 66-year-old white male who I followed for several years for multiple decubitus ulcers and various arterial insufficiency and venous insufficiency ulcerations. The patient most recently was at [facility], being treated for wound care by myself as well as end-stage renal disease and recently was felt that he had an infected TICC line and was brought back to the hospital where it was removed. The patient then went back to [facility], had hypotensive event and then came back here to [facility] where he is now being treated for line infection. Because of his chronic wounds on his right lower extremity, right heel and sacrococcygeal area, I was asked to follow these while he was here. PAST MEDICAL HISTORY: Significant for longstanding history of diabetes; coronary artery disease with previous bypass surgery in 2002; chronic lower extremity wounds; previous history of peripheral vascular disease, both arterial and venous; the left lower extremity [id number] amputation; previous GI bleed; multiple urinary tract infections. CURRENT MEDICATIONS: Multiple. I reviewed the patient's medication list. DRUG ALLERGIES: SULFA. SOCIAL HISTORY: The patient is . Does not smoke or drink alcohol. FAMILY HISTORY: Not pertinent to current medical condition. REVIEW OF SYSTEMS: CONSTITUTIONAL: The patient denies fevers, but did have chills prior to his hospitalization. NEUROLOGIC: The patient has overall generalized weakness, but no isolated weakness in arms or legs. EYES: No complaints. ENT: No complaints. CARDIAC: The patient has chronic edema, but no chest pain or palpitation. RESPIRATORY: The patient has chronic respiratory shortness of breath, but no associated actual cough or wheezes. [address] [address] CONSULTATION Name: ABHIJIT CHOUDHURY Room #: 351-P [facility] IN M.R.#: [id number] Admission: 06/17/17 Attend Phys: Jennie Aguirre Discharge: 06/21/17 Date of : 48 Report #: [id number] GASTROINTESTINAL: The patient has decreased appetite, currently has a PEG tube for most of his feeding. No nausea, vomiting or diarrhea. GENITOURINARY: The patient denies urgency or frequency. The patient does have suprapubic catheter in place. MUSCULOSKELETAL: No complaints. SKIN: There are multiple ulcerations on the sacrococcygeal region as well as his right heel. PHYSICAL EXAMINATION: VITAL SIGNS: The patient is afebrile, pulse is 96. GENERAL: This is an alert and oriented x 1 person, but not place or time, chronically ill appearing white male. HEENT: Normocephalic, atraumatic. Mucous membranes are dry. Pupils are round. Sclerae white. LUNGS: Have diminished breath sounds heard in both bases. Occasional crackle and wheeze. HEART: Regular with 2/6 systolic ejection murmur. ABDOMEN: Obese, soft. PEG tube in place as is suprapubic catheter. EXTREMITIES: The patient with left [id number]-[id number]-[id number] amputation, which is intact. Right lower extremity has unstageable decubitus ulcers around the area of the right posterior heel extending down to the plantar aspect of the heel, which is essentially 100% slough and eschar. Periulcer itself is otherwise intact without significant erythema, warmth or signs of cellulitis. On the outer aspect of the right foot is an unstageable decubitus ulcer with black intact eschar. Sacrococcygeal area reveals an unstageable decubitus ulcer in the sacrococcygeal region without signs of overt infection. There is no involvement in deeper structures including the bone. NEUROLOGIC: Cranial nerves 2-12 are grossly intact. Motor and sensory grossly intact. LABORATORY DATA: White count 8.2, hemoglobin 10.3, albumin is markedly low at 1.3. IMPRESSION: 1. Chronic unstageable decubitus ulcer, sacrococcygeal region, present on admission. 2. Chronic unstageable decubitus ulcer, right heel, present on admission. 3. Chronic ulceration, unstageable, right lateral foot, present on admission. 4. Generalized debility. 5. Diabetes mellitus. 6. End-stage renal disease, on hemodialysis. 7. Coronary artery disease. PLAN: At this time, we will place Optifoam Ag over the right heel, changed this every 2 days. The patient will have Betadine placed to the right lateral foot done this daily. The patient will have Optifoam Ag placed over the [facility] [address] [place] [address] CONSULTATION Name: ABHIJIT CHOUDHURY Room #: 351-P [facility] IN [place].#: [id number] Admission: 06/17/17 Attend Phys: Jennie Aguirre Discharge: 06/21/17 Date of : 48 Report #: [id number] sacrococcygeal ulceration. The patient will have a low air loss mattress, to be turned every 2 hours. We will maximize the patient's protein supplementation via his tube feeds per renal diet. Soon, patient will be going back to [facility] for further wound care, hemodialysis and attempted rehabilitation with physical and occupational therapy. By: 1342 51 Romeo Aguilar MD /tracy
--- NOTE | ~2017-06-17 | HC ---
[facility] [place] [address] CONSULTATION Name: ABHIJIT CHOUDHURY Room #: 351-P [facility] IN M.R.#: [id number] Admission: 06/17/17 Attend Phys: Jennie Aguirre Discharge: Date of : 48 Report #: [id number] THIS REPORT FOR: //name// CC: Olivier Sanders DATE OF SERVICE: 06/17/2017 REASON FOR CONSULTATION: End-stage renal disease management. HISTORY OF PRESENT ILLNESS: This is a 66-year-old male who I have known for years. He has suffered all the ravages of diabetes mellitus. He has end-stage renal disease and has been on hemodialysis for at least the past 6 months, possibly a couple of months longer. He has had recurring problems with various infections. He has had a left lower extremity amputation. He has nonhealing wounds on the right foot. Most recently, he has been staying at [facility] and getting ongoing wound care at that location. He was just here in [facility] about 3 weeks ago. He came over from [facility] on 06/16/2017 with suspicion of an infected TICC line. It was removed in Radiology. I had the opportunity to speak with the radiology nurses and say that it came out fairly easily, but did look infected. He went back to [facility] and was on dialysis on the morning of 06/17/2017. He had some instability on dialysis including hypotension. Dialysis was cut short. During that evaluation, there was concern that he had an infection of his tunneled dialysis catheter. This catheter has been in place for just a couple of weeks, having been placed on 05/27/2017. PAST MEDICAL HISTORY: Longstanding diabetes mellitus. He has coronary artery disease with coronary artery bypass graft surgery in 2002. He had multiple lower extremity wounds, lower extremity vascular disease. He has a previous left lower extremity amputation. He has had chronic nonhealing wounds in the right foot. He has had GI bleeds, was most recently in for that. He has had recurrent urinary tract infections as well as some urinary retention. He has severe chronic anemia. MEDICATIONS: On admission, amiodarone 200 mg daily; amlodipine 5 mg daily, which is held; aspirin 81 mg daily; atorvastatin 40 mg daily; carvedilol 12.5 mg b.i.d.; cholestyramine; Plavix 75 mg daily; famotidine 20 mg daily; Diflucan 400 mg after each dialysis; furosemide 80 mg daily; hydralazine p.r.n.; quinapril 40 mg daily; meropenem; tamsulosin; vancomycin IV after dialysis. ALLERGIES: SULFA. FAMILY HISTORY: Noncontributory. SOCIAL HISTORY: The patient has spent most of the past year in the hospital and various other care centers. He is . I would note I had a long [facility] [address] [place] [address] CONSULTATION Name: ABHIJIT CHOUDHURY Room #: 351-P [facility] IN M.R.#: [id number] Admission: 06/17/17 Attend Phys: Jennie Aguirre Discharge: Date of : 48 Report #: [id number] discussion during his last hospitalization with him about if he wants to continue with this chronic care that has left him so debilitated and not really able to do much of anything, but he states that he was told by his to continue to work on staying alive, so he decided to do that. REVIEW OF SYSTEMS: Appetite is poor. He has chronic dyspnea. He has pain diffusely. Unfortunately, he is not able to provide a whole lot of details. He thinks he had a fever earlier. PHYSICAL EXAMINATION: GENERAL: Chronically ill-appearing male. VITAL SIGNS: Blood pressure 130/66, heart rate 77, temperature 98.0. No fever since he transferred oxygen saturation 97%. HEENT: Shows pupils are equal and reactive. Sclerae nonicteric. Oral mucosa is moist. NECK: Veins are not distended. CHEST: Show shallow respirations bilaterally. I hear no wheezes or rales. HEART: Has a regular rate and rhythm. ABDOMEN: Has active bowel sounds. EXTREMITIES: Show large eschars on the right foot. He also has left upper arm dialysis fistula in place. I spent quite a bit of time examining this. It appears to be of adequate size and very shallow and should be useable for dialysis; although, I know they have had problems with it and that is why had a tunneled dialysis catheter put in. LABORATORY DATA: Sodium 141, potassium 4.0, chloride 106, bicarbonate 30, BUN 28, creatinine 2.2, glucose 166, calcium 8.7, alkaline phosphatase 171, AST 17, ALT 11, total protein 5.5, albumin 1.5. White count 8.8, hemoglobin 10.6, hematocrit 32.0, platelets 309,000. ASSESSMENT: 1. Infected catheters including a TICC line, which was removed on 06/16/2017 and a dialysis catheter which I removed at the bedside yesterday. Cultures are pending and/or negative so far. His chest wall looks much better and is coming along. He is on broad spectrum antibiotics. We will await the final reports of the culture. Unfortunately, that dialysis catheter had only been in about 3 weeks. 2. End-stage renal disease. Dialyzed yesterday, numbers actually look pretty good. Volume is okay. Going forward, I would still like to have him use his dialysis fistula on the left arm if at all possible. 3. Diabetic focal wound with ongoing infection, on broad spectrum antibiotics. 4. Coronary artery disease, currently asymptomatic. 5. Anemia of end-stage renal disease. PLAN: 1. Continue antibiotics as ordered by Dr. Sanders. [facility] [address] [place] [address] CONSULTATION Name: ABHIJIT CHOUDHURY Room #: 351-P ADM IN M.R.#: [id number] Admission: 06/17/17 Attend Phys: Jennie Aguirre Discharge: Date of : 46 Report #: [id number] 2. Labs tomorrow. 3. His next dialysis should be able to be done on 06/20/2017. We will talk with the dialysis nurses and see if we can use that fistula in his arm to avoid another catheter placement at this time. 4. We will follow along the care of this critically ill patient. <ELECTRONICALLY SIGNED> By: Braxton Loza MD 06/20/17 0756 [id number] Braxton Loza MD /nt
[~2017-06-17 13:53] MED LIST changes: -CARVEDILOL6.25 MG PO; -MYCAMINE100 MG IV; -ZOSYN 2.25 GR2.25 GM IV
[2017-06-17 16:32] LABS: HEMOGLOBIN 10.6 gm/dL (14.0-18.0); MCH 31.3 pg (26.0-34.0); MCV 94.8 fL (80.0-100.0); RBC 3.37 mil/uL (4.50-6.00); RDW 18.6 % (10.5-14.5); WBC 8.8 thou/uL (4.0-11.0)
[2017-06-17 16:45] LABS: ALBUMIN 1.5 g/dL (3.4-5.0); CALCIUM 8.7 mg/dL (8.5-10.1); CREATININE 2.2 mg/dL (0.7-1.3); TOTAL BILIRUBIN 0.3 mg/dL (<0.1-1.0); TOTAL PROTEIN 5.5 g/dL (6.4-8.2)
[2017-06-17 17:07] VITALS: BP 128/65
[2017-06-17 19:30] VITALS: BP 122/63
[2017-06-17 23:30] VITALS: BP 130/66
[2017-06-18 05:30] VITALS: BP 132/66
[2017-06-18 07:52] VITALS: BP 140/72
[2017-06-18 19:20] VITALS: BP 117/72
[2017-06-19 03:19] LABS: HEMATOCRIT 31.2 % (42.0-52.0); HEMOGLOBIN 10.3 gm/dL (14.0-18.0); MCH 31.4 pg (26.0-34.0); MCV 95.4 fL (80.0-100.0); RBC 3.27 mil/uL (4.50-6.00); RDW 18.3 % (10.5-14.5); WBC 8.2 thou/uL (4.0-11.0)
[2017-06-19 03:48] LABS: ALBUMIN 1.3 g/dL (3.4-5.0); CALCIUM 8.3 mg/dL (8.5-10.1); CREATININE 2.8 mg/dL (0.7-1.3); PHOSPHORUS 2.6 mg/dL (2.5-4.9); POTASSIUM 4.3 mmol/L (3.5-5.1)
[2017-06-19 03:55] VITALS: BP 170/73
[2017-06-19 07:36] VITALS: BP 168/65
[2017-06-19 15:44] VITALS: BP 151/58
[2017-06-19 20:00] VITALS: BP 128/59
[2017-06-20] VITALS (7 sets, daily range): BP systolic 71–127; BP diastolic 24–66
[2017-06-21 03:06] VITALS: BP 116/65
[2017-06-21 07:34] VITALS: BP 159/67
[2017-06-21] MEDS ORDERED: LISINOPRIL20 MG PO (12:50)
[2017-06-21] MEDS ORDERED: MYCAMINE100 MG IV (12:50)
[2017-06-21] MEDS ORDERED: ZOSYN 2.25 GR2.25 GM IV ×2 (12:50)
[2017-06-21] MEDS ORDERED: CARVEDILOL6.25 MG PO (12:50)
[2017-06-21] MEDS ORDERED: PACERONE 200 M200 M1 PO (12:50)
[2017-06-21] MEDS ORDERED: VANCOMYCIN1.5 GM/253 IV (12:50)
== END 2017-06-21 15:01 | DRG 314 ==
LOC: 3W 13:53
PROVIDERS: Internal Medicine Geriatric Medicine; Internal Medicine Nephrology
PROC: 5A1D70Z Performance of Urinary Filtration, Intermittent, Less than 6 Hours Per Day (ICD-10-PCS; principal; 2017-06-20)
DX: T80.219A Unspecified infection due to central venous catheter, initial encounter (principal); N18.6 End stage renal disease; E11.22 Type 2 diabetes mellitus with diabetic chronic kidney disease; D63.1 Anemia in chronic kidney disease; I25.10 Atherosclerotic heart disease of native coronary artery without angina pectoris; L89.150 Pressure ulcer of sacral region, unstageable; L89.610 Pressure ulcer of right heel, unstageable; L89.890 Pressure ulcer of other site, unstageable; E11.51 Type 2 diabetes mellitus with diabetic peripheral angiopathy without gangrene; Y83.8 Other surgical procedures as the cause of abnormal reaction of the patient, or of later complication, without mention of misadventure at the time of the procedure; E66.9 Obesity, unspecified; E11.43 Type 2 diabetes mellitus with diabetic autonomic (poly)neuropathy; K31.84 Gastroparesis; E11.42 Type 2 diabetes mellitus with diabetic polyneuropathy; E11.621 Type 2 diabetes mellitus with foot ulcer; R62.7 Adult failure to thrive; Z91.048 Other nonmedicinal substance allergy status; Z99.2 Dependence on renal dialysis; Z95.1 Presence of aortocoronary bypass graft; Z79.82 Long term (current) use of aspirin; Z79.899 Other long term (current) drug therapy; Z88.2 Allergy status to sulfonamides; Z89.612 Acquired absence of left leg above knee; Z68.27 Body mass index [BMI] 27.0-27.9, adult; Y92.89 Other specified places as the place of occurrence of the external cause
CPT/HCPCS: 10879; 32100